=== PATIENT | female | born 1965 | race Caucasian/White ===

== ENCOUNTER 2017-09-27 08:21 | Outpatient (RCR) | payer BC, SELFPAY ==
[2017-09-27] MEDS: Normal Saline Flush 10 ML SYR IVP (07:30)
[2017-09-27 07:43] LABS: Abs Immature Grans 0.03 k/cumm (0.0-0.09); Absolute Basophil Count 0.01 k/cumm (0.0-0.2); Absolute Lymphocyte Count 0.59 k/cumm (1.2-3.4); Absolute Monocyte Count 0.51 k/cumm (0.11-0.7); Absolute Neutrophil Count 5.48 k/cumm (1.2-6.7); Basophils % 0.1; Eosinophils % 1.5; HCT 37.4 % (36.0-46.0); Immature Grans % 0.4; Lymphocytes % 8.8; Mean Corp. HGB Concentration 32.1 g/dL (32.0-36.0); Mean Corpuscular Hemoglobin 29.3 pg (27.0-33.0); Mean Corpuscular Volume 91.4 fL (80-95); Mean Platelet Volume 9.4 fL (8.0-11.0); Monocytes % 7.6; Neutrophils % 81.6; Platelet Count 184 x1000/uL (130-400); RBC 4.09 m/cumm (4.00-5.20); RBC Distribution Width 15.3 % (11.7-14.6); White Blood Cell Count 6.72 k/cumm (4.4-10.8)
[2017-09-27 07:57] LABS: ALT 23 U/L (12-78); AST 14 U/L (15-37); Albumin 3.2 g/dL (3.4-5.0); Alkaline Phosphatase 121 U/L (46-116); BUN 10 mg/dL (7-18); Bilirubin, Total 0.4 mg/dL (0.2-1.0); CREATININE 0.88 mg/dL (0.55-1.02); Calcium 8.5 mg/dL (8.5-10.1); Chloride 105 mmol/L (98-107); Glucose 105 mg/dL (70-100); Potassium 4.1 mmol/L (3.5-5.1); Sodium 141 mmol/L (136-145); Total Protein 6.8 g/dL (6.4-8.2)
[2017-10-10] MEDS: Normal Saline Flush 10 ML SYR IVP (08:25)
[2017-10-10 08:48] LABS: Abs Immature Grans 0.03 k/cumm (0.0-0.09); Absolute Basophil Count 0.02 k/cumm (0.0-0.2); Absolute Eosinophil Count 0.06 k/cumm (0.0-0.7); Absolute Lymphocyte Count 0.69 k/cumm (1.2-3.4); Absolute Monocyte Count 0.54 k/cumm (0.11-0.7); Absolute Neutrophil Count 4.04 k/cumm (1.2-6.7); Basophils % 0.4; Eosinophils % 1.1; HCT 34.8 % (36.0-46.0); HGB 11.2 g/dL (12.0-15.5); Immature Grans % 0.6; Lymphocytes % 12.8; Mean Corp. HGB Concentration 32.2 g/dL (32.0-36.0); Mean Corpuscular Hemoglobin 29.5 pg (27.0-33.0); Mean Corpuscular Volume 91.6 fL (80-95); Neutrophils % 75.1; Platelet Count 167 x1000/uL (130-400); RBC Distribution Width 16.2 % (11.7-14.6); White Blood Cell Count 5.38 k/cumm (4.4-10.8)
[2017-10-10 08:58] LABS: ALT 24 U/L (12-78); AST 15 U/L (15-37); Albumin 3.4 g/dL (3.4-5.0); Alkaline Phosphatase 125 U/L (46-116); BUN 11 mg/dL (7-18); Bilirubin, Total 0.4 mg/dL (0.2-1.0); CREATININE 0.86 mg/dL (0.55-1.02); Calcium 8.5 mg/dL (8.5-10.1); Chloride 103 mmol/L (98-107); Glucose 94 mg/dL (70-100); Potassium 3.9 mmol/L (3.5-5.1); Sodium 137 mmol/L (136-145); Total Protein 6.8 g/dL (6.4-8.2)
[2017-10-11 10:13] LABS: CEA 2.4 ng/ml
== END 2017-10-21 ==
LOC: INF 10-10 08:21
PROVIDERS: PCP Hospitalist; Visit Provider Internal Medicine Medical Oncology
DX: C20 Malignant neoplasm of rectum (principal); Z45.2 Encounter for adjustment and management of vascular access device
CPT/HCPCS: 36591; 80053; 82378; 85025

== ENCOUNTER 2017-11-08 01:15 | Outpatient (RCR) | payer BC, SELFPAY ==
[2017-10-25] MEDS: Normal Saline Flush 10 ML SYR IVP (11:00)
[2017-10-25 11:29] LABS: Abs Immature Grans 0.02 k/cumm (0.0-0.09); Absolute Basophil Count 0.02 k/cumm (0.0-0.2); Absolute Eosinophil Count 0.07 k/cumm (0.0-0.7); Absolute Lymphocyte Count 0.71 k/cumm (1.2-3.4); Absolute Monocyte Count 0.44 k/cumm (0.11-0.7); Absolute Neutrophil Count 6.23 k/cumm (1.2-6.7); Basophils % 0.3; Eosinophils % 0.9; HCT 35.3 % (36.0-46.0); HGB 11.2 g/dL (12.0-15.5); Immature Grans % 0.3; Lymphocytes % 9.5; Mean Corp. HGB Concentration 31.7 g/dL (32.0-36.0); Mean Corpuscular Hemoglobin 28.9 pg (27.0-33.0); Mean Corpuscular Volume 91.2 fL (80-95); Mean Platelet Volume 9.6 fL (8.0-11.0); Monocytes % 5.9; Neutrophils % 83.1; Platelet Count 191 x1000/uL (130-400); RBC 3.87 m/cumm (4.00-5.20); RBC Distribution Width 17.2 % (11.7-14.6); White Blood Cell Count 7.49 k/cumm (4.4-10.8)
[2017-10-25 11:31] LABS: Albumin 3.3 g/dL (3.4-5.0); Anion Gap 6.3 mmol/L (3-11); BUN 11 mg/dL (7-18); CO2 25.7 mmol/L (21.0-32.0); CREATININE 0.81 mg/dL (0.55-1.02); Calcium 8.5 mg/dL (8.5-10.1); Chloride 105 mmol/L (98-107); Glucose 119 mg/dL (70-100); Potassium 3.5 mmol/L (3.5-5.1); Sodium 137 mmol/L (136-145)
[2017-10-25 11:49] LABS: ALT 25 U/L (12-78); AST 15 U/L (15-37); Alkaline Phosphatase 129 U/L (46-116); Bilirubin, Total 0.5 mg/dL (0.2-1.0); Total Protein 6.7 g/dL (6.4-8.2)
[2017-11-08] MEDS: Normal Saline Flush 10 ML SYR IVP (07:34)
[2017-11-08 07:58] LABS: Abs Immature Grans 0.02 k/cumm (0.0-0.09); Absolute Basophil Count 0.02 k/cumm (0.0-0.2); Absolute Eosinophil Count 0.09 k/cumm (0.0-0.7); Absolute Monocyte Count 0.44 k/cumm (0.11-0.7); Absolute Neutrophil Count 3.65 k/cumm (1.2-6.7); Basophils % 0.4; Eosinophils % 1.9; HCT 34.5 % (36.0-46.0); HGB 11.2 g/dL (12.0-15.5); Immature Grans % 0.4; Lymphocytes % 12.4; Mean Corp. HGB Concentration 32.5 g/dL (32.0-36.0); Mean Corpuscular Hemoglobin 29.8 pg (27.0-33.0); Mean Corpuscular Volume 91.8 fL (80-95); Mean Platelet Volume 9.5 fL (8.0-11.0); Monocytes % 9.1; Neutrophils % 75.8; Platelet Count 182 x1000/uL (130-400); RBC 3.76 m/cumm (4.00-5.20); White Blood Cell Count 4.82 k/cumm (4.4-10.8)
[2017-11-08 08:10] LABS: ALT 29 U/L (12-78); AST 16 U/L (15-37); Albumin 3.3 g/dL (3.4-5.0); Alkaline Phosphatase 156 U/L (46-116); Anion Gap 9.4 mmol/L (3-11); BUN 13 mg/dL (7-18); Bilirubin, Total 0.5 mg/dL (0.2-1.0); CO2 27.6 mmol/L (21.0-32.0); CREATININE 0.79 mg/dL (0.55-1.02); Calcium 8.6 mg/dL (8.5-10.1); Chloride 106 mmol/L (98-107); Glucose 104 mg/dL (70-100); Potassium 3.9 mmol/L (3.5-5.1); Sodium 143 mmol/L (136-145); Total Protein 6.6 g/dL (6.4-8.2)
[2017-11-09 09:21] LABS: CEA 4.3 ng/ml
== END 2017-11-20 23:59 | disposition home or self-care (01) ==
LOC: INF 01:15
PROVIDERS: PCP Hospitalist; Visit Provider Internal Medicine Medical Oncology
DX: C20 Malignant neoplasm of rectum (principal); Z45.2 Encounter for adjustment and management of vascular access device
CPT/HCPCS: 36591; 80053; 82378; 85025

== ENCOUNTER 2017-11-21 01:32 | Outpatient (RCR) | payer BC, SELFPAY ==
[2017-11-21] MEDS: Normal Saline Flush 10 ML SYR IVP (08:20)
[2017-11-21 08:44] LABS: Abs Immature Grans 0.04 k/cumm (0.0-0.09); Absolute Basophil Count 0.02 k/cumm (0.0-0.2); Absolute Eosinophil Count 0.09 k/cumm (0.0-0.7); Absolute Lymphocyte Count 0.74 k/cumm (1.2-3.4); Absolute Monocyte Count 0.55 k/cumm (0.11-0.7); Absolute Neutrophil Count 4.35 k/cumm (1.2-6.7); Basophils % 0.3; Eosinophils % 1.6; HCT 34.7 % (36.0-46.0); HGB 10.9 g/dL (12.0-15.5); Immature Grans % 0.7; Lymphocytes % 12.8; Mean Corp. HGB Concentration 31.4 g/dL (32.0-36.0); Mean Corpuscular Hemoglobin 29.4 pg (27.0-33.0); Mean Corpuscular Volume 93.5 fL (80-95); Mean Platelet Volume 9.4 fL (8.0-11.0); Monocytes % 9.5; Neutrophils % 75.1; Platelet Count 199 x1000/uL (130-400); RBC 3.71 m/cumm (4.00-5.20); RBC Distribution Width 17.9 % (11.7-14.6); White Blood Cell Count 5.79 k/cumm (4.4-10.8)
[2017-11-21 08:57] LABS: ALT 23 U/L (12-78); AST 13 U/L (15-37); Albumin 3.3 g/dL (3.4-5.0); Alkaline Phosphatase 162 U/L (46-116); Anion Gap 9.5 mmol/L (3-11); BUN 16 mg/dL (7-18); Bilirubin, Total 0.4 mg/dL (0.2-1.0); CO2 25.5 mmol/L (21.0-32.0); CREATININE 0.75 mg/dL (0.55-1.02); Calcium 8.8 mg/dL (8.5-10.1); Chloride 104 mmol/L (98-107); Glucose 107 mg/dL (70-100); Sodium 139 mmol/L (136-145); Total Protein 6.6 g/dL (6.4-8.2)
== END 2017-12-21 23:59 | disposition home or self-care (01) ==
LOC: INF 01:32
PROVIDERS: PCP Hospitalist; Visit Provider Internal Medicine Medical Oncology
DX: C20 Malignant neoplasm of rectum (principal); Z45.2 Encounter for adjustment and management of vascular access device
CPT/HCPCS: 36591; 80053; 85025

== ENCOUNTER 2018-01-13 00:47 | Outpatient (RCR) | payer BC, SELFPAY ==
[2017-12-30 08:56] LABS: Abs Immature Grans 0.01 k/cumm (0.0-0.09); Absolute Basophil Count 0.01 k/cumm (0.0-0.2); Absolute Eosinophil Count 0.14 k/cumm (0.0-0.7); Absolute Lymphocyte Count 0.76 k/cumm (1.2-3.4); Absolute Monocyte Count 0.51 k/cumm (0.11-0.7); Absolute Neutrophil Count 5.16 k/cumm (1.2-6.7); Basophils % 0.2; Eosinophils % 2.1; HCT 37.7 % (36.0-46.0); Immature Grans % 0.2; Lymphocytes % 11.5; Mean Corp. HGB Concentration 31.8 g/dL (32.0-36.0); Mean Corpuscular Hemoglobin 29.8 pg (27.0-33.0); Mean Corpuscular Volume 93.5 fL (80-95); Mean Platelet Volume 9.4 fL (8.0-11.0); Monocytes % 7.7; Neutrophils % 78.3; Platelet Count 208 x1000/uL (130-400); RBC 4.03 m/cumm (4.00-5.20); RBC Distribution Width 14.3 % (11.7-14.6); White Blood Cell Count 6.59 k/cumm (4.4-10.8)
[2017-12-30 09:09] LABS: ALT 23 U/L (12-78); AST 15 U/L (15-37); Albumin 3.2 g/dL (3.4-5.0); Alkaline Phosphatase 123 U/L (46-116); Anion Gap 8.3 mmol/L (3-11); BUN 16 mg/dL (7-18); Bilirubin, Total 0.4 mg/dL (0.2-1.0); CO2 27.7 mmol/L (21.0-32.0); CREATININE 0.66 mg/dL (0.55-1.02); Calcium 8.9 mg/dL (8.5-10.1); Chloride 102 mmol/L (98-107); Glucose 109 mg/dL (70-100); Sodium 138 mmol/L (136-145); Total Protein 6.9 g/dL (6.4-8.2)
[2017-12-30] MEDS: Normal Saline Flush 10 ML SYR IVP (15:03)
[2018-01-02 09:51] LABS: CEA 4.9 ng/ml
[2018-01-13 07:21] LABS: Abs Immature Grans 0.03 k/cumm (0.0-0.09); Absolute Basophil Count 0.02 k/cumm (0.0-0.2); Absolute Eosinophil Count 0.12 k/cumm (0.0-0.7); Absolute Lymphocyte Count 0.67 k/cumm (1.2-3.4); Absolute Monocyte Count 0.61 k/cumm (0.11-0.7); Absolute Neutrophil Count 4.93 k/cumm (1.2-6.7); Basophils % 0.3; Eosinophils % 1.9; HCT 38.3 % (36.0-46.0); HGB 12.1 g/dL (12.0-15.5); Immature Grans % 0.5; Lymphocytes % 10.5; Mean Corp. HGB Concentration 31.6 g/dL (32.0-36.0); Mean Corpuscular Hemoglobin 29.3 pg (27.0-33.0); Mean Corpuscular Volume 92.7 fL (80-95); Monocytes % 9.6; Neutrophils % 77.2; Platelet Count 197 x1000/uL (130-400); RBC 4.13 m/cumm (4.00-5.20); RBC Distribution Width 14.6 % (11.7-14.6); White Blood Cell Count 6.38 k/cumm (4.4-10.8)
[2018-01-13] MEDS: Normal Saline Flush 10 ML SYR IVP (07:22)
[2018-01-13 07:33] LABS: ALT 25 U/L (12-78); AST 16 U/L (15-37); Albumin 3.2 g/dL (3.4-5.0); Alkaline Phosphatase 137 U/L (46-116); Anion Gap 8.7 mmol/L (3-11); BUN 12 mg/dL (7-18); Bilirubin, Total 0.3 mg/dL (0.2-1.0); CO2 29.3 mmol/L (21.0-32.0); CREATININE 0.72 mg/dL (0.55-1.02); Chloride 103 mmol/L (98-107); Glucose 111 mg/dL (70-100); Potassium 4.1 mmol/L (3.5-5.1); Sodium 141 mmol/L (136-145); Total Protein 6.9 g/dL (6.4-8.2)
[2018-01-16 10:34] LABS: CEA 5.2 ng/ml
== END 2018-01-20 23:59 | disposition home or self-care (01) ==
LOC: INF 00:47
PROVIDERS: PCP Hospitalist; Visit Provider Internal Medicine Medical Oncology
DX: C20 Malignant neoplasm of rectum (principal); Z45.2 Encounter for adjustment and management of vascular access device
CPT/HCPCS: 36591; 80053; 82378; 85025

== ENCOUNTER 2018-02-17 07:00 | Outpatient (RCR) | payer BC, SELFPAY ==
[2018-01-27] MEDS: Normal Saline Flush 10 ML SYR IVP (07:50)
[2018-01-27 08:04] LABS: Abs Immature Grans 0.04 k/cumm (0.0-0.09); Absolute Basophil Count 0.02 k/cumm (0.0-0.2); Absolute Eosinophil Count 0.07 k/cumm (0.0-0.7); Absolute Lymphocyte Count 0.55 k/cumm (1.2-3.4); Absolute Monocyte Count 0.61 k/cumm (0.11-0.7); Absolute Neutrophil Count 5.15 k/cumm (1.2-6.7); Basophils % 0.3; Eosinophils % 1.1; HCT 37.9 % (36.0-46.0); HGB 12.1 g/dL (12.0-15.5); Immature Grans % 0.6; Lymphocytes % 8.5; Mean Corp. HGB Concentration 31.9 g/dL (32.0-36.0); Mean Corpuscular Hemoglobin 29.4 pg (27.0-33.0); Mean Corpuscular Volume 92.2 fL (80-95); Monocytes % 9.5; Platelet Count 158 x1000/uL (130-400); RBC 4.11 m/cumm (4.00-5.20); RBC Distribution Width 14.8 % (11.7-14.6); White Blood Cell Count 6.44 k/cumm (4.4-10.8)
[2018-01-27 08:12] LABS: ALT 28 U/L (12-78); AST 18 U/L (15-37); Albumin 3.2 g/dL (3.4-5.0); Alkaline Phosphatase 135 U/L (46-116); Anion Gap 10.9 mmol/L (3-11); BUN 11 mg/dL (7-18); Bilirubin, Total 0.3 mg/dL (0.2-1.0); CO2 27.1 mmol/L (21.0-32.0); CREATININE 0.86 mg/dL (0.55-1.02); Calcium 8.8 mg/dL (8.5-10.1); Chloride 105 mmol/L (98-107); Glucose 164 mg/dL (70-100); Potassium 4.3 mmol/L (3.5-5.1); Sodium 143 mmol/L (136-145); Total Protein 6.7 g/dL (6.4-8.2)
[2018-02-17] MEDS: Normal Saline Flush 10 ML SYR IVP (07:05)
[2018-02-17 07:31] LABS: Abs Immature Grans 0.02 k/cumm (0.0-0.09); Absolute Basophil Count 0.02 k/cumm (0.0-0.2); Absolute Eosinophil Count 0.09 k/cumm (0.0-0.7); Absolute Lymphocyte Count 0.53 k/cumm (1.2-3.4); Absolute Monocyte Count 0.69 k/cumm (0.11-0.7); Absolute Neutrophil Count 5.37 k/cumm (1.2-6.7); Basophils % 0.3; Eosinophils % 1.3; HCT 38.4 % (36.0-46.0); HGB 12.1 g/dL (12.0-15.5); Immature Grans % 0.3; Lymphocytes % 7.9; Mean Corp. HGB Concentration 31.5 g/dL (32.0-36.0); Mean Corpuscular Hemoglobin 28.6 pg (27.0-33.0); Mean Corpuscular Volume 90.8 fL (80-95); Mean Platelet Volume 9.9 fL (8.0-11.0); Monocytes % 10.3; Neutrophils % 79.9; Platelet Count 227 x1000/uL (130-400); RBC 4.23 m/cumm (4.00-5.20); RBC Distribution Width 15.9 % (11.7-14.6); White Blood Cell Count 6.72 k/cumm (4.4-10.8)
[2018-02-17 07:48] LABS: ALT 30 U/L (12-78); AST 21 U/L (15-37); Albumin 3.2 g/dL (3.4-5.0); Alkaline Phosphatase 112 U/L (46-116); Anion Gap 5.6 mmol/L (3-11); BUN 9 mg/dL (7-18); Bilirubin, Total 0.5 mg/dL (0.2-1.0); CO2 28.4 mmol/L (21.0-32.0); CREATININE 0.63 mg/dL (0.55-1.02); Calcium 8.8 mg/dL (8.5-10.1); Chloride 105 mmol/L (98-107); Glucose 106 mg/dL (70-100); Potassium 4.1 mmol/L (3.5-5.1); Sodium 139 mmol/L (136-145); Total Protein 6.8 g/dL (6.4-8.2)
[2018-02-20 08:44] LABS: CEA 7.1 ng/ml
== END 2018-02-20 23:59 | disposition home or self-care (01) ==
LOC: INF 07:00
PROVIDERS: Internal Medicine Hematology & Oncology; PCP Hospitalist; Visit Provider Internal Medicine Medical Oncology
DX: C20 Malignant neoplasm of rectum (principal); Z45.2 Encounter for adjustment and management of vascular access device
CPT/HCPCS: 36591; 80053; 82378; 85025

== ENCOUNTER 2018-03-17 00:52 | Outpatient (RCR) | payer BC, SELFPAY ==
[2018-03-03 08:33] LABS: Abs Immature Grans 0.01 k/cumm (0.0-0.09); Absolute Basophil Count 0.01 k/cumm (0.0-0.2); Absolute Lymphocyte Count 0.57 k/cumm (1.2-3.4); Absolute Monocyte Count 0.49 k/cumm (0.11-0.7); Absolute Neutrophil Count 4.57 k/cumm (1.2-6.7); Basophils % 0.2; Eosinophils % 1.7; HCT 36.2 % (36.0-46.0); HGB 11.6 g/dL (12.0-15.5); Immature Grans % 0.2; Lymphocytes % 9.9; Mean Corpuscular Hemoglobin 28.9 pg (27.0-33.0); Mean Platelet Volume 9.6 fL (8.0-11.0); Monocytes % 8.5; Neutrophils % 79.5; Platelet Count 146 x1000/uL (130-400); RBC 4.02 m/cumm (4.00-5.20); RBC Distribution Width 16.5 % (11.7-14.6); White Blood Cell Count 5.75 k/cumm (4.4-10.8)
[2018-03-03] MEDS: Normal Saline Flush 10 ML SYR IVP (08:33)
[2018-03-03 08:45] LABS: ALT 22 U/L (12-78); AST 16 U/L (15-37); Albumin 3.2 g/dL (3.4-5.0); Alkaline Phosphatase 131 U/L (46-116); Anion Gap 8.9 mmol/L (3-11); BUN 9 mg/dL (7-18); Bilirubin, Total 0.4 mg/dL (0.2-1.0); CO2 27.1 mmol/L (21.0-32.0); CREATININE 0.75 mg/dL (0.55-1.02); Chloride 106 mmol/L (98-107); Glucose 101 mg/dL (70-100); Potassium 3.9 mmol/L (3.5-5.1); Sodium 142 mmol/L (136-145); Total Protein 6.8 g/dL (6.4-8.2)
[2018-03-06 08:46] LABS: CEA 7.8 ng/ml
[2018-03-17 08:07] LABS: Abs Immature Grans 0.02 k/cumm (0.0-0.09); Absolute Basophil Count 0.02 k/cumm (0.0-0.2); Absolute Eosinophil Count 0.02 k/cumm (0.0-0.7); Absolute Monocyte Count 0.74 k/cumm (0.11-0.7); Absolute Neutrophil Count 4.75 k/cumm (1.2-6.7); Basophils % 0.3; Eosinophils % 0.3; HCT 33.4 % (36.0-46.0); HGB 10.7 g/dL (12.0-15.5); Immature Grans % 0.3; Lymphocytes % 8.3; Mean Corpuscular Hemoglobin 28.3 pg (27.0-33.0); Mean Corpuscular Volume 88.4 fL (80-95); Mean Platelet Volume 9.4 fL (8.0-11.0); Monocytes % 12.2; Neutrophils % 78.6; Platelet Count 120 x1000/uL (130-400); RBC 3.78 m/cumm (4.00-5.20); RBC Distribution Width 16.8 % (11.7-14.6); White Blood Cell Count 6.05 k/cumm (4.4-10.8)
[2018-03-17] MEDS: Normal Saline Flush 10 ML SYR IVP (08:13)
[2018-03-17 08:19] LABS: ALT 30 U/L (12-78); AST 19 U/L (15-37); Albumin 2.9 g/dL (3.4-5.0); Alkaline Phosphatase 115 U/L (46-116); Anion Gap 9.1 mmol/L (3-11); BUN 9 mg/dL (7-18); Bilirubin, Total 0.5 mg/dL (0.2-1.0); CO2 26.9 mmol/L (21.0-32.0); CREATININE 0.66 mg/dL (0.55-1.02); Chloride 103 mmol/L (98-107); Glucose 118 mg/dL (70-100); Potassium 3.6 mmol/L (3.5-5.1); Sodium 139 mmol/L (136-145); Total Protein 6.7 g/dL (6.4-8.2)
[2018-03-17 08:24] LABS: Calcium 8.7 mg/dL (8.5-10.1)
== END 2018-03-23 23:59 | disposition home or self-care (01) ==
LOC: INF 00:52
PROVIDERS: PCP Hospitalist; Visit Provider Internal Medicine Hematology & Oncology
DX: C20 Malignant neoplasm of rectum (principal); Z45.2 Encounter for adjustment and management of vascular access device
CPT/HCPCS: 36591; 80053; 82378; 85025

== ENCOUNTER 2018-06-23 01:54 | Outpatient (RCR) | payer BC, SELFPAY | END 2018-07-21 23:59 | disposition home or self-care (01) | LOC: INF 01:54 | PROVIDERS: PCP Hospitalist; Visit Provider Internal Medicine Hematology & Oncology | DX: R69 Illness, unspecified (principal) ==

== ENCOUNTER 2018-09-14 01:46 | Outpatient (RCR) | payer BC, SELFPAY ==
[2018-09-14] MEDS: Normal Saline Flush 10 ML SYR IVP (09:18)
[2018-09-14] MEDS: Heparin 500 UNITS/5 ML SYRINGE IV (09:18)
[2018-09-14 09:38] LABS: Absolute Basophil Count 0.02 k/cumm (0.0-0.2); Absolute Eosinophil Count 0.04 k/cumm (0.0-0.7); Absolute Lymphocyte Count 0.83 k/cumm (1.2-3.4); Absolute Monocyte Count 0.38 k/cumm (0.11-0.7); Absolute Neutrophil Count 3.15 k/cumm (1.2-6.7); Basophils % 0.5; Eosinophils % 0.9; HCT 37.8 % (36.0-46.0); HGB 11.9 g/dL (12.0-15.5); Lymphocytes % 18.8; Mean Corp. HGB Concentration 31.5 g/dL (32.0-36.0); Mean Corpuscular Hemoglobin 24.2 pg (27.0-33.0); Mean Platelet Volume 10.3 fL (8.0-11.0); Monocytes % 8.6; Neutrophils % 71.2; Platelet Count 226 x1000/uL (130-400); RBC 4.91 m/cumm (4.00-5.20); RBC Distribution Width 20.4 % (11.7-14.6); White Blood Cell Count 4.42 k/cumm (4.4-10.8)
[2018-09-14 09:50] LABS: ALT 25 U/L (12-78); AST 15 U/L (15-37); Albumin 3.6 g/dL (3.4-5.0); Alkaline Phosphatase 85 U/L (46-116); Anion Gap 7.9 mmol/L (3-11); BUN 16 mg/dL (7-18); Bilirubin, Total 0.6 mg/dL (0.2-1.0); CO2 28.1 mmol/L (21.0-32.0); CREATININE 0.63 mg/dL (0.55-1.02); Calcium 9.4 mg/dL (8.5-10.1); Chloride 103 mmol/L (98-107); Glucose 104 mg/dL (70-100); Potassium 4.1 mmol/L (3.5-5.1); Sodium 139 mmol/L (136-145); Total Protein 7.7 g/dL (6.4-8.2)
[2018-09-14 10:41] LABS: Anisocytosis 2+; Diff Comment Diff Reviewed
== END 2018-09-20 23:59 | disposition home or self-care (01) ==
LOC: INF 01:46
PROVIDERS: PCP Hospitalist; Visit Provider Internal Medicine Hematology & Oncology
DX: C20 Malignant neoplasm of rectum (principal); Z45.2 Encounter for adjustment and management of vascular access device
CPT/HCPCS: 36591; 80053; 82378; 85025

== ENCOUNTER 2018-10-06 02:47 | Outpatient (RCR) | payer BC, SELFPAY ==
[2018-10-06] MEDS: Heparin 500 UNITS/5 ML SYRINGE IV (13:35)
[2018-10-06] MEDS: Normal Saline Flush 10 ML SYR IVP (13:35)
[2018-10-06 13:57] LABS: Abs Immature Grans 0.01 k/cumm (0.0-0.09); Absolute Basophil Count 0.01 k/cumm (0.0-0.2); Absolute Eosinophil Count 0.02 k/cumm (0.0-0.7); Absolute Lymphocyte Count 1.04 k/cumm (1.2-3.4); Absolute Monocyte Count 0.42 k/cumm (0.11-0.7); Absolute Neutrophil Count 2.81 k/cumm (1.2-6.7); Basophils % 0.2; Eosinophils % 0.5; HCT 37.9 % (36.0-46.0); Immature Grans % 0.2; Lymphocytes % 24.1; Mean Corp. HGB Concentration 31.7 g/dL (32.0-36.0); Mean Corpuscular Hemoglobin 25.1 pg (27.0-33.0); Mean Corpuscular Volume 79.1 fL (80-95); Mean Platelet Volume 10.1 fL (8.0-11.0); Monocytes % 9.7; Neutrophils % 65.3; Platelet Count 234 x1000/uL (130-400); RBC 4.79 m/cumm (4.00-5.20); RBC Distribution Width 20.6 % (11.7-14.6); White Blood Cell Count 4.31 k/cumm (4.4-10.8)
[2018-10-06 14:16] LABS: ALT 19 U/L (12-78); AST 16 U/L (15-37); Albumin 3.7 g/dL (3.4-5.0); Alkaline Phosphatase 89 U/L (46-116); Anion Gap 8.3 mmol/L (3-11); BUN 17 mg/dL (7-18); Bilirubin, Total 0.5 mg/dL (0.2-1.0); CO2 27.7 mmol/L (21.0-32.0); CREATININE 0.73 mg/dL (0.55-1.02); Calcium 9.1 mg/dL (8.5-10.1); Chloride 103 mmol/L (98-107); Glucose 83 mg/dL (70-100); Potassium 3.9 mmol/L (3.5-5.1); Sodium 139 mmol/L (136-145); Total Protein 7.9 g/dL (6.4-8.2)
[2018-10-09 09:43] LABS: CEA 48.4 ng/ml
== END 2018-10-21 23:59 | disposition home or self-care (01) ==
LOC: INF 02:47
PROVIDERS: PCP Hospitalist; Visit Provider Internal Medicine Hematology & Oncology
DX: C20 Malignant neoplasm of rectum (principal); Z45.2 Encounter for adjustment and management of vascular access device
CPT/HCPCS: 36591; 80053; 82378; 85025

== ENCOUNTER 2018-11-10 03:05 | Outpatient (RCR) | payer BC, SELFPAY ==
[2018-10-27] MEDS: Normal Saline Flush 10 ML SYR IVP (10:33)
[2018-10-27 10:39] LABS: Abs Immature Grans 0.01 k/cumm (0.0-0.09); Absolute Basophil Count 0.01 k/cumm (0.0-0.2); Absolute Eosinophil Count 0.03 k/cumm (0.0-0.7); Absolute Lymphocyte Count 0.79 k/cumm (1.2-3.4); Absolute Monocyte Count 0.48 k/cumm (0.11-0.7); Absolute Neutrophil Count 4.25 k/cumm (1.2-6.7); Basophils % 0.2; Eosinophils % 0.5; HCT 38.6 % (36.0-46.0); HGB 12.3 g/dL (12.0-15.5); Immature Grans % 0.2; Lymphocytes % 14.2; Mean Corp. HGB Concentration 31.9 g/dL (32.0-36.0); Mean Corpuscular Volume 81.6 fL (80-95); Mean Platelet Volume 9.9 fL (8.0-11.0); Monocytes % 8.6; Neutrophils % 76.3; Platelet Count 235 x1000/uL (130-400); RBC 4.73 m/cumm (4.00-5.20); RBC Distribution Width 19.6 % (11.7-14.6); White Blood Cell Count 5.57 k/cumm (4.4-10.8)
[2018-10-27 11:46] LABS: ALT 25 U/L (14-59); AST 17 U/L (15-37); Albumin 3.6 g/dL (3.4-5.0); Alkaline Phosphatase 81 U/L (46-116); Anion Gap 7.9 mmol/L (3-11); BUN 16 mg/dL (7-18); Bilirubin, Total 0.5 mg/dL (0.2-1.0); CO2 29.1 mmol/L (21.0-32.0); CREATININE 0.82 mg/dL (0.55-1.02); Calcium 9.1 mg/dL (8.5-10.1); Chloride 104 mmol/L (98-107); Glucose 93 mg/dL (70-100); Potassium 4.4 mmol/L (3.5-5.1); Sodium 141 mmol/L (136-145); Total Protein 7.6 g/dL (6.4-8.2)
[2018-10-30 10:48] LABS: CEA 67.8 ng/ml
== END 2018-11-20 23:59 | disposition home or self-care (01) ==
LOC: INF 03:05
PROVIDERS: PCP Hospitalist; Visit Provider Internal Medicine Hematology & Oncology
DX: C20 Malignant neoplasm of rectum (principal); Z45.2 Encounter for adjustment and management of vascular access device
CPT/HCPCS: 36591; 80053; 82378; 85025

== ENCOUNTER 2018-12-08 02:50 | Outpatient (RCR) | payer BC, SELFPAY ==
[2018-11-24] MEDS: Normal Saline Flush 10 ML SYR IVP (09:54)
[2018-11-24 10:00] LABS: Absolute Basophil Count 0.01 k/cumm (0.0-0.2); Absolute Eosinophil Count 0.03 k/cumm (0.0-0.7); Absolute Lymphocyte Count 0.79 k/cumm (1.2-3.4); Absolute Monocyte Count 0.48 k/cumm (0.11-0.7); Absolute Neutrophil Count 4.17 k/cumm (1.2-6.7); Basophils % 0.2; Eosinophils % 0.5; HCT 39.9 % (36.0-46.0); Lymphocytes % 14.4; Mean Corp. HGB Concentration 32.6 g/dL (32.0-36.0); Mean Corpuscular Hemoglobin 27.1 pg (27.0-33.0); Mean Corpuscular Volume 83.1 fL (80-95); Mean Platelet Volume 10.3 fL (8.0-11.0); Monocytes % 8.8; Neutrophils % 76.1; Platelet Count 257 x1000/uL (130-400); RBC Distribution Width 18.1 % (11.7-14.6); White Blood Cell Count 5.48 k/cumm (4.4-10.8)
[2018-11-24 10:42] LABS: ALT 23 U/L (14-59); AST 20 U/L (15-37); Albumin 3.7 g/dL (3.4-5.0); Alkaline Phosphatase 88 U/L (46-116); Anion Gap 10.3 mmol/L (3-11); BUN 15 mg/dL (7-18); Bilirubin, Total 0.8 mg/dL (0.2-1.0); CO2 25.7 mmol/L (21.0-32.0); CREATININE 0.67 mg/dL (0.55-1.02); Chloride 104 mmol/L (98-107); Glucose 97 mg/dL (70-100); Potassium 4.1 mmol/L (3.5-5.1); Sodium 140 mmol/L (136-145); Total Protein 7.7 g/dL (6.4-8.2)
[2018-11-27 08:53] LABS: CEA 47.8 ng/ml
[2018-12-08] MEDS: Normal Saline Flush 10 ML SYR IVP (09:39)
[2018-12-08 09:57] LABS: Abs Immature Grans 0.02 k/cumm (0.0-0.09); Absolute Basophil Count 0.02 k/cumm (0.0-0.2); Absolute Eosinophil Count 0.04 k/cumm (0.0-0.7); Absolute Lymphocyte Count 1.23 k/cumm (1.2-3.4); Absolute Neutrophil Count 8.32 k/cumm (1.2-6.7); Basophils % 0.2; Eosinophils % 0.4; HCT 42.2 % (36.0-46.0); HGB 13.7 g/dL (12.0-15.5); Immature Grans % 0.2; Lymphocytes % 12.1; Mean Corp. HGB Concentration 32.5 g/dL (32.0-36.0); Mean Corpuscular Hemoglobin 27.6 pg (27.0-33.0); Mean Corpuscular Volume 84.9 fL (80-95); Mean Platelet Volume 9.8 fL (8.0-11.0); Monocytes % 4.9; Neutrophils % 82.2; Platelet Count 190 x1000/uL (130-400); RBC 4.97 m/cumm (4.00-5.20); RBC Distribution Width 18.4 % (11.7-14.6); White Blood Cell Count 10.13 k/cumm (4.4-10.8)
[2018-12-08 10:12] LABS: ALT 21 U/L (14-59); AST 17 U/L (15-37); Albumin 3.9 g/dL (3.4-5.0); Alkaline Phosphatase 133 U/L (46-116); Anion Gap 11.4 mmol/L (3-11); BUN 15 mg/dL (7-18); Bilirubin, Total 0.6 mg/dL (0.2-1.0); CO2 26.6 mmol/L (21.0-32.0); CREATININE 0.76 mg/dL (0.55-1.02); Calcium 9.1 mg/dL (8.5-10.1); Chloride 103 mmol/L (98-107); Glucose 98 mg/dL (70-100); Potassium 4.1 mmol/L (3.5-5.1); Sodium 141 mmol/L (136-145); Total Protein 7.8 g/dL (6.4-8.2)
[2018-12-11 10:55] LABS: CEA 29.3 ng/ml
== END 2018-12-21 23:59 | disposition home or self-care (01) ==
LOC: INF 02:50
PROVIDERS: PCP Hospitalist; Visit Provider Internal Medicine Hematology & Oncology
DX: C20 Malignant neoplasm of rectum (principal); Z45.2 Encounter for adjustment and management of vascular access device
CPT/HCPCS: 36591; 80053; 82378; 85025

== ENCOUNTER 2019-01-19 02:03 | Outpatient (RCR) | payer BC, SELFPAY ==
[2018-12-22 09:30] LABS: Abs Immature Grans 0.05 k/cumm (0.0-0.09); Absolute Basophil Count 0.02 k/cumm (0.0-0.2); Absolute Eosinophil Count 0.03 k/cumm (0.0-0.7); Absolute Lymphocyte Count 1.12 k/cumm (1.2-3.4); Absolute Monocyte Count 0.73 k/cumm (0.11-0.7); Absolute Neutrophil Count 7.06 k/cumm (1.2-6.7); Basophils % 0.2; Eosinophils % 0.3; HCT 39.2 % (36.0-46.0); HGB 12.9 g/dL (12.0-15.5); Immature Grans % 0.6; Lymphocytes % 12.4; Mean Corp. HGB Concentration 32.9 g/dL (32.0-36.0); Mean Corpuscular Hemoglobin 28.6 pg (27.0-33.0); Mean Corpuscular Volume 86.9 fL (80-95); Mean Platelet Volume 9.5 fL (8.0-11.0); Monocytes % 8.1; Neutrophils % 78.4; Platelet Count 184 x1000/uL (130-400); RBC 4.51 m/cumm (4.00-5.20); RBC Distribution Width 17.8 % (11.7-14.6); White Blood Cell Count 9.01 k/cumm (4.4-10.8)
[2018-12-22 09:41] LABS: ALT 32 U/L (14-59); AST 19 U/L (15-37); Albumin 2.1 g/dL (3.4-5.0); Alkaline Phosphatase 134 U/L (46-116); Anion Gap 7.3 mmol/L (3-11); BUN 13 mg/dL (7-18); Bilirubin, Total 0.5 mg/dL (0.2-1.0); CO2 27.7 mmol/L (21.0-32.0); CREATININE 0.72 mg/dL (0.55-1.02); Calcium 8.9 mg/dL (8.5-10.1); Chloride 105 mmol/L (98-107); Glucose 92 mg/dL (70-100); Sodium 140 mmol/L (136-145); Total Protein 7.1 g/dL (6.4-8.2)
[2018-12-22] MEDS: Normal Saline Flush 10 ML SYR IVP (09:41)
[2018-12-25 11:21] LABS: CEA 21.9 ng/ml
[2019-01-05 10:15] LABS: Abs Immature Grans 0.04 k/cumm (0.0-0.09); Absolute Basophil Count 0.01 k/cumm (0.0-0.2); Absolute Eosinophil Count 0.02 k/cumm (0.0-0.7); Absolute Lymphocyte Count 1.01 k/cumm (1.2-3.4); Absolute Monocyte Count 0.81 k/cumm (0.11-0.7); Basophils % 0.1; Eosinophils % 0.2; HCT 39.9 % (36.0-46.0); HGB 12.8 g/dL (12.0-15.5); Immature Grans % 0.5; Lymphocytes % 11.6; Mean Corp. HGB Concentration 32.1 g/dL (32.0-36.0); Mean Corpuscular Hemoglobin 28.3 pg (27.0-33.0); Mean Corpuscular Volume 88.1 fL (80-95); Mean Platelet Volume 10.2 fL (8.0-11.0); Monocytes % 9.3; Neutrophils % 78.3; Platelet Count 169 x1000/uL (130-400); RBC 4.53 m/cumm (4.00-5.20); RBC Distribution Width 18.1 % (11.7-14.6); White Blood Cell Count 8.69 k/cumm (4.4-10.8)
[2019-01-05] MEDS: Normal Saline Flush 10 ML SYR IVP (10:26)
[2019-01-05 10:29] LABS: ALT 32 U/L (14-59); AST 20 U/L (15-37); Albumin 3.8 g/dL (3.4-5.0); Alkaline Phosphatase 155 U/L (46-116); Anion Gap 8.9 mmol/L (3-11); BUN 12 mg/dL (7-18); Bilirubin, Total 0.6 mg/dL (0.2-1.0); CO2 27.1 mmol/L (21.0-32.0); CREATININE 0.66 mg/dL (0.55-1.02); Calcium 9.1 mg/dL (8.5-10.1); Chloride 104 mmol/L (98-107); Glucose 96 mg/dL (70-100); Potassium 4.3 mmol/L (3.5-5.1); Sodium 140 mmol/L (136-145); Total Protein 7.3 g/dL (6.4-8.2)
[2019-01-09 16:08] LABS: CEA 19.3 ng/mL (See Note)
[2019-01-19] MEDS: Normal Saline Flush 10 ML SYR IVP (09:25)
[2019-01-19 09:42] LABS: Abs Immature Grans 0.08 k/cumm (0.0-0.09); Absolute Basophil Count 0.03 k/cumm (0.0-0.2); Absolute Eosinophil Count 0.04 k/cumm (0.0-0.7); Absolute Lymphocyte Count 0.87 k/cumm (1.2-3.4); Absolute Monocyte Count 0.77 k/cumm (0.11-0.7); Absolute Neutrophil Count 5.41 k/cumm (1.2-6.7); Basophils % 0.4; Eosinophils % 0.6; HCT 39.6 % (36.0-46.0); HGB 12.7 g/dL (12.0-15.5); Immature Grans % 1.1; Lymphocytes % 12.1; Mean Corp. HGB Concentration 32.1 g/dL (32.0-36.0); Mean Corpuscular Hemoglobin 28.5 pg (27.0-33.0); Mean Platelet Volume 9.6 fL (8.0-11.0); Monocytes % 10.7; Neutrophils % 75.1; Platelet Count 140 x1000/uL (130-400); RBC 4.45 m/cumm (4.00-5.20); RBC Distribution Width 19.2 % (11.7-14.6)
[2019-01-19 10:01] LABS: ALT 40 U/L (14-59); AST 22 U/L (15-37); Albumin 3.3 g/dL (3.4-5.0); Alkaline Phosphatase 140 U/L (46-116); Anion Gap 8.8 mmol/L (3-11); BUN 10 mg/dL (7-18); Bilirubin, Total 0.7 mg/dL (0.2-1.0); CO2 28.2 mmol/L (21.0-32.0); CREATININE 0.79 mg/dL (0.55-1.02); Calcium 8.7 mg/dL (8.5-10.1); Chloride 107 mmol/L (98-107); Glucose 97 mg/dL (74-106); Potassium 3.8 mmol/L (3.5-5.1); Sodium 144 mmol/L (136-145); Total Protein 6.6 g/dL (6.4-8.2)
[2019-01-22 10:54] LABS: CEA 15.9 ng/mL (See Note)
== END 2019-01-20 23:59 | disposition home or self-care (01) ==
LOC: INF 02:03
PROVIDERS: PCP Hospitalist; Visit Provider Internal Medicine Hematology & Oncology
DX: C20 Malignant neoplasm of rectum (principal); Z45.2 Encounter for adjustment and management of vascular access device
CPT/HCPCS: 36591; 80053; 82378; 85025

== ENCOUNTER 2019-02-02 01:19 | Outpatient (RCR) | payer BC, SELFPAY ==
[2019-02-02] MEDS: Normal Saline Flush 10 ML SYR IVP (10:24)
[2019-02-02 10:26] LABS: Abs Immature Grans 0.05 k/cumm (0.0-0.09); Absolute Basophil Count 0.02 k/cumm (0.0-0.2); Absolute Eosinophil Count 0.01 k/cumm (0.0-0.7); Absolute Lymphocyte Count 0.98 k/cumm (1.2-3.4); Absolute Monocyte Count 0.95 k/cumm (0.11-0.7); Absolute Neutrophil Count 8.48 k/cumm (1.2-6.7); Basophils % 0.2; Eosinophils % 0.1; HCT 41.1 % (36.0-46.0); HGB 13.2 g/dL (12.0-15.5); Immature Grans % 0.5; Lymphocytes % 9.3; Mean Corp. HGB Concentration 32.1 g/dL (32.0-36.0); Mean Corpuscular Hemoglobin 29.2 pg (27.0-33.0); Mean Corpuscular Volume 90.9 fL (80-95); Monocytes % 9.1; Neutrophils % 80.8; Platelet Count 133 x1000/uL (130-400); RBC 4.52 m/cumm (4.00-5.20); RBC Distribution Width 19.4 % (11.7-14.6); White Blood Cell Count 10.49 k/cumm (4.4-10.8)
[2019-02-02 10:36] LABS: ALT 32 U/L (14-59); AST 21 U/L (15-37); Albumin 3.8 g/dL (3.4-5.0); Alkaline Phosphatase 161 U/L (46-116); Anion Gap 9.7 mmol/L (3-11); BUN 12 mg/dL (7-18); Bilirubin, Total 0.8 mg/dL (0.2-1.0); CO2 26.3 mmol/L (21.0-32.0); CREATININE 0.74 mg/dL (0.55-1.02); Chloride 105 mmol/L (98-107); Glucose 93 mg/dL (74-106); Potassium 4.1 mmol/L (3.5-5.1); Sodium 141 mmol/L (136-145); Total Protein 7.3 g/dL (6.4-8.2)
[2019-02-05 10:27] LABS: CEA 15.7 ng/mL (See Note)
== END 2019-02-20 23:59 | disposition home or self-care (01) ==
LOC: INF 01:19
PROVIDERS: PCP Hospitalist; Visit Provider Internal Medicine Hematology & Oncology
DX: C20 Malignant neoplasm of rectum (principal); Z45.2 Encounter for adjustment and management of vascular access device
CPT/HCPCS: 36591; 80053; 82378; 85025

== ENCOUNTER 2019-03-23 02:51 | Outpatient (RCR) | payer BC, SELFPAY ==
[2019-02-23] MEDS: Normal Saline Flush 10 ML SYR IVP (10:16)
[2019-02-23 10:20] LABS: Abs Immature Grans 0.01 k/cumm (0.0-0.09); Absolute Basophil Count 0.02 k/cumm (0.0-0.2); Absolute Eosinophil Count 0.04 k/cumm (0.0-0.7); Absolute Lymphocyte Count 0.82 k/cumm (1.2-3.4); Absolute Monocyte Count 0.75 k/cumm (0.11-0.7); Absolute Neutrophil Count 7.32 k/cumm (1.2-6.7); Basophils % 0.2; Eosinophils % 0.4; HCT 42.1 % (36.0-46.0); HGB 13.8 g/dL (12.0-15.5); Immature Grans % 0.1 %; Lymphocytes % 9.2; Mean Corp. HGB Concentration 32.8 g/dL (32.0-36.0); Mean Corpuscular Hemoglobin 30.8 pg (27.0-33.0); Mean Platelet Volume 10.1 fL (8.0-11.0); Monocytes % 8.4; Neutrophils % 81.7; Platelet Count 195 x1000/uL (130-400); RBC 4.48 m/cumm (4.00-5.20); RBC Distribution Width 19.1 % (11.7-14.6); White Blood Cell Count 8.96 k/cumm (4.4-10.8)
[2019-02-23 10:32] LABS: ALT 45 U/L (14-59); AST 33 U/L (15-37); Albumin 3.7 g/dL (3.4-5.0); Alkaline Phosphatase 128 U/L (46-116); Anion Gap 8.8 mmol/L (3-11); BUN 16 mg/dL (7-18); Bilirubin, Total 0.9 mg/dL (0.2-1.0); CO2 28.2 mmol/L (21.0-32.0); CREATININE 0.65 mg/dL (0.55-1.02); Calcium 9.2 mg/dL (8.5-10.1); Chloride 102 mmol/L (98-107); Glucose 94 mg/dL (74-106); Potassium 4.3 mmol/L (3.5-5.1); Sodium 139 mmol/L (136-145); Total Protein 7.6 g/dL (6.4-8.2)
[2019-02-26 11:28] LABS: CEA 17.3 ng/mL (See Note)
[2019-03-09] MEDS: Normal Saline Flush 10 ML SYR IVP (07:14)
[2019-03-09 07:25] LABS: Abs Immature Grans 0.03 k/cumm (0.0-0.09); Absolute Basophil Count 0.01 k/cumm (0.0-0.2); Absolute Eosinophil Count 0.03 k/cumm (0.0-0.7); Absolute Monocyte Count 0.58 k/cumm (0.11-0.7); Absolute Neutrophil Count 6.39 k/cumm (1.2-6.7); Basophils % 0.1; Eosinophils % 0.4; HCT 39.4 % (36.0-46.0); HGB 12.8 g/dL (12.0-15.5); Immature Grans % 0.4 %; Mean Corp. HGB Concentration 32.5 g/dL (32.0-36.0); Mean Corpuscular Hemoglobin 31.1 pg (27.0-33.0); Mean Corpuscular Volume 95.6 fL (80-95); Mean Platelet Volume 10.2 fL (8.0-11.0); Monocytes % 7.5; Neutrophils % 82.6; Platelet Count 129 x1000/uL (130-400); RBC 4.12 m/cumm (4.00-5.20); RBC Distribution Width 17.5 % (11.7-14.6); White Blood Cell Count 7.74 k/cumm (4.4-10.8)
[2019-03-09 07:35] LABS: ALT 25 U/L (14-59); AST 20 U/L (15-37); Albumin 3.4 g/dL (3.4-5.0); Alkaline Phosphatase 139 U/L (46-116); Anion Gap 7.5 mmol/L (3-11); BUN 10 mg/dL (7-18); Bilirubin, Total 0.5 mg/dL (0.2-1.0); CO2 28.5 mmol/L (21.0-32.0); CREATININE 0.67 mg/dL (0.55-1.02); Chloride 106 mmol/L (98-107); Glucose 96 mg/dL (74-106); Potassium 4.1 mmol/L (3.5-5.1); Sodium 142 mmol/L (136-145); Total Protein 6.7 g/dL (6.4-8.2)
[2019-03-23] MEDS: Normal Saline Flush 10 ML SYR IVP (10:40)
[2019-03-23 10:59] LABS: Abs Immature Grans 0.05 k/cumm (0.0-0.09); Absolute Basophil Count 0.01 k/cumm (0.0-0.2); Absolute Eosinophil Count 0.03 k/cumm (0.0-0.7); Absolute Lymphocyte Count 0.77 k/cumm (1.2-3.4); Absolute Neutrophil Count 8.35 k/cumm (1.2-6.7); Basophils % 0.1; Eosinophils % 0.3; HCT 39.1 % (36.0-46.0); HGB 12.8 g/dL (12.0-15.5); Immature Grans % 0.5 %; Lymphocytes % 7.8; Mean Corp. HGB Concentration 32.7 g/dL (32.0-36.0); Mean Corpuscular Hemoglobin 31.1 pg (27.0-33.0); Mean Corpuscular Volume 95.1 fL (80-95); Mean Platelet Volume 9.7 fL (8.0-11.0); Monocytes % 7.1; Neutrophils % 84.2; Platelet Count 101 x1000/uL (130-400); RBC 4.11 m/cumm (4.00-5.20); RBC Distribution Width 16.7 % (11.7-14.6); White Blood Cell Count 9.91 k/cumm (4.4-10.8)
[2019-03-23 11:10] LABS: ALT 29 U/L (14-59); AST 22 U/L (15-37); Albumin 3.6 g/dL (3.4-5.0); Alkaline Phosphatase 148 U/L (46-116); Anion Gap 8.6 mmol/L (3-11); BUN 11 mg/dL (7-18); Bilirubin, Total 0.7 mg/dL (0.2-1.0); CO2 27.4 mmol/L (21.0-32.0); CREATININE 0.74 mg/dL (0.55-1.02); Calcium 8.8 mg/dL (8.5-10.1); Chloride 105 mmol/L (98-107); Glucose 97 mg/dL (74-106); Potassium 3.8 mmol/L (3.5-5.1); Sodium 141 mmol/L (136-145); Total Protein 6.8 g/dL (6.4-8.2)
[2019-03-26 12:23] LABS: CEA 16.3 ng/mL (See Note)
== END 2019-03-23 23:59 | disposition home or self-care (01) ==
LOC: INF 02:51
PROVIDERS: PCP Hospitalist; Visit Provider Internal Medicine Hematology & Oncology
DX: C20 Malignant neoplasm of rectum (principal); Z45.2 Encounter for adjustment and management of vascular access device
CPT/HCPCS: 36591; 80053; 82378; 85025

== ENCOUNTER 2019-03-23 13:08 | Outpatient (REF) | payer BC, SELFPAY ==
[2019-03-23 14:47] LABS: Bilirubin Negative (Negative); Blood Negative (Negative); Clarity Clear (Clear); Glucose Negative (Negative); Ketones Negative (Negative); Leukocyte Esterase Small (Negative); Nitrite Negative (Negative); Specific Gravity 1.025 (1.005-1.025); Urobilinogen 0.2 EU/dL (Up TO 0.2); pH 6.5 (5-8)
[2019-03-23 15:04] LABS: Bacteria Few HPF (Negative); C & S Indicated? Yes; Casts Negative LPF (Negative); Crystals Negative HPF (Negative); Epithelial Cells Few HPF (Negative); Mucus Negative (Negative); Other Cells Few Renal (Negative); WBC 20-50 HPF (0-5)
== END 2019-03-23 13:28 ==
LOC: LBN 13:08
PROVIDERS: PCP Hospitalist; Visit Provider Internal Medicine Hematology & Oncology
DX: D70.1 Agranulocytosis secondary to cancer chemotherapy (principal); C20 Malignant neoplasm of rectum; T45.1X5A Adverse effect of antineoplastic and immunosuppressive drugs, initial encounter
CPT/HCPCS: 81003; 81015; 87086

== ENCOUNTER 2019-04-20 04:31 | Outpatient (RCR) | payer BC, SELFPAY ==
[2019-04-06 10:18] LABS: Absolute Basophil Count 0.01 k/cumm (0.0-0.2); Absolute Eosinophil Count 0.02 k/cumm (0.0-0.7); Absolute Lymphocyte Count 0.58 k/cumm (1.2-3.4); Absolute Monocyte Count 0.45 k/cumm (0.11-0.7); Absolute Neutrophil Count 2.45 k/cumm (1.2-6.7); Basophils % 0.3; Eosinophils % 0.6; HCT 40.7 % (36.0-46.0); HGB 13.2 g/dL (12.0-15.5); Lymphocytes % 16.5; Mean Corp. HGB Concentration 32.4 g/dL (32.0-36.0); Mean Corpuscular Hemoglobin 31.1 pg (27.0-33.0); Mean Corpuscular Volume 95.8 fL (80-95); Mean Platelet Volume 9.5 fL (8.0-11.0); Monocytes % 12.8; Neutrophils % 69.8; Platelet Count 113 x1000/uL (130-400); RBC 4.25 m/cumm (4.00-5.20); RBC Distribution Width 15.8 % (11.7-14.6); White Blood Cell Count 3.51 k/cumm (4.4-10.8)
[2019-04-06] MEDS: Normal Saline Flush 10 ML SYR IVP (10:19)
[2019-04-06 10:36] LABS: ALT 22 U/L (14-59); AST 20 U/L (15-37); Albumin 3.7 g/dL (3.4-5.0); Alkaline Phosphatase 104 U/L (46-116); Anion Gap 9.1 mmol/L (3-11); BUN 10 mg/dL (7-18); CO2 26.9 mmol/L (21.0-32.0); CREATININE 0.68 mg/dL (0.55-1.02); Calcium 8.8 mg/dL (8.5-10.1); Chloride 104 mmol/L (98-107); Glucose 95 mg/dL (74-106); Sodium 140 mmol/L (136-145); Total Protein 7.1 g/dL (6.4-8.2)
[2019-04-09 11:10] LABS: CEA 19.1 ng/mL (See Note)
[2019-04-20] MEDS: Normal Saline Flush 10 ML SYR IVP (09:25)
[2019-04-20 09:40] LABS: Absolute Basophil Count 0.01 k/cumm (0.0-0.2); Absolute Eosinophil Count 0.05 k/cumm (0.0-0.7); Absolute Lymphocyte Count 0.59 k/cumm (1.2-3.4); Absolute Monocyte Count 0.39 k/cumm (0.11-0.7); Absolute Neutrophil Count 2.55 k/cumm (1.2-6.7); Basophils % 0.3; Eosinophils % 1.4; HCT 39.1 % (36.0-46.0); HGB 12.9 g/dL (12.0-15.5); Lymphocytes % 16.4; Mean Corpuscular Hemoglobin 31.4 pg (27.0-33.0); Mean Corpuscular Volume 95.1 fL (80-95); Monocytes % 10.9; Platelet Count 112 x1000/uL (130-400); RBC 4.11 m/cumm (4.00-5.20); RBC Distribution Width 15.5 % (11.7-14.6); White Blood Cell Count 3.59 k/cumm (4.4-10.8)
[2019-04-20 10:02] LABS: ALT 24 U/L (14-59); AST 19 U/L (15-37); Albumin 3.7 g/dL (3.4-5.0); Alkaline Phosphatase 103 U/L (46-116); Anion Gap 9.5 mmol/L (3-11); BUN 12 mg/dL (7-18); CO2 26.5 mmol/L (21.0-32.0); Chloride 105 mmol/L (98-107); Glucose 102 mg/dL (74-106); Potassium 3.8 mmol/L (3.5-5.1); Sodium 141 mmol/L (136-145); Total Protein 7.1 g/dL (6.4-8.2)
[2019-04-23 09:39] LABS: CEA 19.4 ng/mL (See Note)
== END 2019-04-21 23:59 | disposition home or self-care (01) ==
LOC: INF 04:31
PROVIDERS: PCP Hospitalist; Visit Provider Internal Medicine Hematology & Oncology
DX: C20 Malignant neoplasm of rectum (principal); Z45.2 Encounter for adjustment and management of vascular access device
CPT/HCPCS: 36591; 80053; 82378; 85025

== ENCOUNTER 2019-05-18 03:47 | Outpatient (RCR) | payer BC, SELFPAY ==
[2019-05-04] MEDS: Normal Saline Flush 10 ML SYR IVP (11:39)
[2019-05-04 11:50] LABS: Absolute Basophil Count 0.01 k/cumm (0.0-0.2); Absolute Eosinophil Count 0.06 k/cumm (0.0-0.7); Absolute Lymphocyte Count 0.56 k/cumm (1.2-3.4); Absolute Monocyte Count 0.45 k/cumm (0.11-0.7); Absolute Neutrophil Count 2.39 k/cumm (1.2-6.7); Basophils % 0.3; Eosinophils % 1.7; HCT 40.4 % (36.0-46.0); HGB 13.3 g/dL (12.0-15.5); Lymphocytes % 16.1; Mean Corp. HGB Concentration 32.9 g/dL (32.0-36.0); Mean Corpuscular Hemoglobin 31.1 pg (27.0-33.0); Mean Corpuscular Volume 94.6 fL (80-95); Mean Platelet Volume 9.6 fL (8.0-11.0); Neutrophils % 68.9; Platelet Count 128 x1000/uL (130-400); RBC 4.27 m/cumm (4.00-5.20); RBC Distribution Width 15.2 % (11.7-14.6); White Blood Cell Count 3.47 k/cumm (4.4-10.8)
[2019-05-04 12:13] LABS: ALT 23 U/L (14-59); AST 18 U/L (15-37); Albumin 3.7 g/dL (3.4-5.0); Alkaline Phosphatase 107 U/L (46-116); Anion Gap 6.9 mmol/L (3-11); BUN 14 mg/dL (7-18); CO2 30.1 mmol/L (21.0-32.0); CREATININE 0.79 mg/dL (0.55-1.02); Calcium 8.8 mg/dL (8.5-10.1); Chloride 103 mmol/L (98-107); Glucose 96 mg/dL (74-106); Potassium 3.9 mmol/L (3.5-5.1); Sodium 140 mmol/L (136-145); Total Protein 7.5 g/dL (6.4-8.2)
[2019-05-18] MEDS: Normal Saline Flush 10 ML SYR IVP (09:20)
[2019-05-18 09:38] LABS: Absolute Basophil Count 0.01 k/cumm (0.0-0.2); Absolute Eosinophil Count 0.05 k/cumm (0.0-0.7); Absolute Lymphocyte Count 0.51 k/cumm (1.2-3.4); Absolute Monocyte Count 0.48 k/cumm (0.11-0.7); Absolute Neutrophil Count 2.54 k/cumm (1.2-6.7); Basophils % 0.3; Eosinophils % 1.4; HCT 42.5 % (36.0-46.0); HGB 14.2 g/dL (12.0-15.5); Lymphocytes % 14.2; Mean Corp. HGB Concentration 33.4 g/dL (32.0-36.0); Mean Corpuscular Hemoglobin 31.6 pg (27.0-33.0); Mean Corpuscular Volume 94.4 fL (80-95); Mean Platelet Volume 8.7 fL (8.0-11.0); Monocytes % 13.4; Neutrophils % 70.7; Platelet Count 153 x1000/uL (130-400); RBC Distribution Width 15.4 % (11.7-14.6); White Blood Cell Count 3.59 k/cumm (4.4-10.8)
[2019-05-18 09:53] LABS: ALT 24 U/L (14-59); AST 18 U/L (15-37); Albumin 3.7 g/dL (3.4-5.0); Alkaline Phosphatase 97 U/L (46-116); Anion Gap 6.2 mmol/L (3-11); BUN 18 mg/dL (7-18); CO2 28.8 mmol/L (21.0-32.0); CREATININE 0.91 mg/dL (0.55-1.02); Calcium 9.5 mg/dL (8.5-10.1); Chloride 104 mmol/L (98-107); Glucose 108 mg/dL (74-106); Potassium 4.7 mmol/L (3.5-5.1); Sodium 139 mmol/L (136-145); Total Protein 7.7 g/dL (6.4-8.2)
[2019-05-21 10:20] LABS: CEA 26.4 ng/mL (See Note)
== END 2019-05-22 23:59 | disposition home or self-care (01) ==
LOC: INF 03:47
PROVIDERS: PCP Hospitalist; Visit Provider Internal Medicine Hematology & Oncology
DX: C20 Malignant neoplasm of rectum (principal); Z45.2 Encounter for adjustment and management of vascular access device
CPT/HCPCS: 36591; 80053; 82378; 85025

== ENCOUNTER 2019-06-15 03:33 | Outpatient (RCR) | payer BC, SELFPAY ==
[2019-06-01] MEDS: Normal Saline Flush 10 ML SYR IVP (10:21)
[2019-06-01 10:24] LABS: Absolute Basophil Count 0.01 k/cumm (0.0-0.2); Absolute Eosinophil Count 0.06 k/cumm (0.0-0.7); Absolute Monocyte Count 0.45 k/cumm (0.11-0.7); Absolute Neutrophil Count 2.64 k/cumm (1.2-6.7); Basophils % 0.3; Eosinophils % 1.6; HCT 42.6 % (36.0-46.0); HGB 14.3 g/dL (12.0-15.5); Lymphocytes % 13.7; Mean Corp. HGB Concentration 33.6 g/dL (32.0-36.0); Mean Corpuscular Hemoglobin 31.8 pg (27.0-33.0); Mean Corpuscular Volume 94.7 fL (80-95); Mean Platelet Volume 9.4 fL (8.0-11.0); Monocytes % 12.3; Neutrophils % 72.1; Platelet Count 151 x1000/uL (130-400); RBC Distribution Width 15.7 % (11.7-14.6); White Blood Cell Count 3.66 k/cumm (4.4-10.8)
[2019-06-01 10:41] LABS: ALT 26 U/L (14-59); AST 18 U/L (15-37); Albumin 3.6 g/dL (3.4-5.0); Alkaline Phosphatase 94 U/L (46-116); Anion Gap 9.3 mmol/L (3-11); BUN 15 mg/dL (7-18); Bilirubin, Total 1.3 mg/dL (0.2-1.0); CO2 26.7 mmol/L (21.0-32.0); CREATININE 0.94 mg/dL (0.55-1.02); Calcium 9.5 mg/dL (8.5-10.1); Chloride 102 mmol/L (98-107); Glucose 106 mg/dL (74-106); Potassium 4.5 mmol/L (3.5-5.1); Sodium 138 mmol/L (136-145); Total Protein 7.5 g/dL (6.4-8.2)
[2019-06-05 18:32] LABS: CEA 28.1 ng/mL (See Note)
[2019-06-15 10:08] LABS: Abs Immature Grans 0.01 k/cumm (0.0-0.09); Absolute Basophil Count 0.01 k/cumm (0.0-0.2); Absolute Eosinophil Count 0.09 k/cumm (0.0-0.7); Absolute Lymphocyte Count 0.64 k/cumm (1.2-3.4); Absolute Monocyte Count 0.38 k/cumm (0.11-0.7); Absolute Neutrophil Count 2.75 k/cumm (1.2-6.7); Basophils % 0.3; Eosinophils % 2.3; HCT 40.2 % (36.0-46.0); HGB 13.1 g/dL (12.0-15.5); Immature Grans % 0.3 %; Lymphocytes % 16.5; Mean Corp. HGB Concentration 32.6 g/dL (32.0-36.0); Mean Corpuscular Hemoglobin 31.3 pg (27.0-33.0); Mean Corpuscular Volume 95.9 fL (80-95); Mean Platelet Volume 8.8 fL (8.0-11.0); Monocytes % 9.8; Neutrophils % 70.8; Platelet Count 150 x1000/uL (130-400); RBC 4.19 m/cumm (4.00-5.20); RBC Distribution Width 15.8 % (11.7-14.6); White Blood Cell Count 3.88 k/cumm (4.4-10.8)
[2019-06-15] MEDS: Normal Saline Flush 10 ML SYR IVP (10:08)
[2019-06-15 10:21] LABS: ALT 24 U/L (14-59); AST 18 U/L (15-37); Albumin 3.6 g/dL (3.4-5.0); Alkaline Phosphatase 87 U/L (46-116); Anion Gap 8.4 mmol/L (3-11); BUN 18 mg/dL (7-18); Bilirubin, Total 0.9 mg/dL (0.2-1.0); CO2 26.6 mmol/L (21.0-32.0); CREATININE 0.83 mg/dL (0.55-1.02); Calcium 9.2 mg/dL (8.5-10.1); Chloride 104 mmol/L (98-107); Glucose 98 mg/dL (74-106); Potassium 4.2 mmol/L (3.5-5.1); Sodium 139 mmol/L (136-145); Total Protein 7.3 g/dL (6.4-8.2)
[2019-06-18 11:07] LABS: CEA 24.8 ng/mL (See Note)
== END 2019-06-21 23:59 | disposition home or self-care (01) ==
LOC: INF 03:33
PROVIDERS: PCP Hospitalist; Visit Provider Internal Medicine Hematology & Oncology
DX: C20 Malignant neoplasm of rectum (principal); Z45.2 Encounter for adjustment and management of vascular access device
CPT/HCPCS: 36591; 80053; 82378; 85025

== ENCOUNTER 2019-07-13 04:32 | Outpatient (RCR) | payer BC, SELFPAY ==
[2019-06-29 10:16] LABS: Abs Immature Grans 0.01 k/cumm (0.0-0.09); Absolute Basophil Count 0.01 k/cumm (0.0-0.2); Absolute Eosinophil Count 0.11 k/cumm (0.0-0.7); Absolute Monocyte Count 0.42 k/cumm (0.11-0.7); Absolute Neutrophil Count 2.61 k/cumm (1.2-6.7); Basophils % 0.3; HCT 41.6 % (36.0-46.0); HGB 13.8 g/dL (12.0-15.5); Immature Grans % 0.3 %; Lymphocytes % 13.7; Mean Corp. HGB Concentration 33.2 g/dL (32.0-36.0); Mean Corpuscular Hemoglobin 31.6 pg (27.0-33.0); Mean Corpuscular Volume 95.2 fL (80-95); Mean Platelet Volume 9.1 fL (8.0-11.0); Monocytes % 11.5; Neutrophils % 71.2; Platelet Count 143 x1000/uL (130-400); RBC 4.37 m/cumm (4.00-5.20); RBC Distribution Width 15.9 % (11.7-14.6); White Blood Cell Count 3.66 k/cumm (4.4-10.8)
[2019-06-29 10:27] LABS: ALT 25 U/L (14-59); AST 20 U/L (15-37); Albumin 3.7 g/dL (3.4-5.0); Alkaline Phosphatase 87 U/L (46-116); Anion Gap 9.2 mmol/L (3-11); BUN 18 mg/dL (7-18); Bilirubin, Total 1.1 mg/dL (0.2-1.0); CO2 26.8 mmol/L (21.0-32.0); CREATININE 0.78 mg/dL (0.55-1.02); Calcium 9.6 mg/dL (8.5-10.1); Chloride 100 mmol/L (98-107); Glucose 101 mg/dL (74-106); Potassium 4.3 mmol/L (3.5-5.1); Sodium 136 mmol/L (136-145); Total Protein 7.7 g/dL (6.4-8.2)
[2019-07-02 08:54] LABS: CEA 23.7 ng/mL (See Note)
[2019-07-13] MEDS: Normal Saline Flush 10 ML SYR IVP (08:59)
[2019-07-13 09:05] LABS: Absolute Basophil Count 0.01 k/cumm (0.0-0.2); Absolute Eosinophil Count 0.15 k/cumm (0.0-0.7); Absolute Lymphocyte Count 0.59 k/cumm (1.2-3.4); Absolute Monocyte Count 0.55 k/cumm (0.11-0.7); Basophils % 0.2; Eosinophils % 3.3; HCT 42.1 % (36.0-46.0); HGB 14.1 g/dL (12.0-15.5); Lymphocytes % 12.8; Mean Corp. HGB Concentration 33.5 g/dL (32.0-36.0); Mean Corpuscular Hemoglobin 31.9 pg (27.0-33.0); Mean Corpuscular Volume 95.2 fL (80-95); Mean Platelet Volume 9.3 fL (8.0-11.0); Neutrophils % 71.7; Platelet Count 161 x1000/uL (130-400); RBC 4.42 m/cumm (4.00-5.20); RBC Distribution Width 15.9 % (11.7-14.6)
[2019-07-13 09:24] LABS: ALT 24 U/L (14-59); AST 17 U/L (15-37); Albumin 3.7 g/dL (3.4-5.0); Alkaline Phosphatase 91 U/L (46-116); BUN 13 mg/dL (7-18); Bilirubin, Total 1.1 mg/dL (0.2-1.0); CREATININE 0.85 mg/dL (0.55-1.02); Calcium 9.3 mg/dL (8.5-10.1); Chloride 102 mmol/L (98-107); Glucose 105 mg/dL (74-106); Potassium 4.3 mmol/L (3.5-5.1); Sodium 137 mmol/L (136-145); Total Protein 7.6 g/dL (6.4-8.2)
[2019-07-16 10:59] LABS: CEA 24.2 ng/mL (See Note)
== END 2019-07-22 23:59 | disposition home or self-care (01) ==
LOC: INF 04:32
PROVIDERS: PCP Hospitalist; Visit Provider Internal Medicine Hematology & Oncology
DX: C20 Malignant neoplasm of rectum (principal); Z45.2 Encounter for adjustment and management of vascular access device
CPT/HCPCS: 36591; 80053; 82378; 85025

== ENCOUNTER 2019-08-10 04:34 | Outpatient (RCR) | payer BC, SELFPAY ==
[2019-07-27] MEDS: Normal Saline Flush 10 ML SYR IVP (10:12)
[2019-07-27 10:21] LABS: Absolute Basophil Count 0.01 k/cumm (0.0-0.2); Absolute Eosinophil Count 0.15 k/cumm (0.0-0.7); Absolute Monocyte Count 0.68 k/cumm (0.11-0.7); Absolute Neutrophil Count 4.19 k/cumm (1.2-6.7); Basophils % 0.2; Eosinophils % 2.6; HCT 43.1 % (36.0-46.0); HGB 14.3 g/dL (12.0-15.5); Lymphocytes % 12.2; Mean Corp. HGB Concentration 33.2 g/dL (32.0-36.0); Mean Corpuscular Hemoglobin 31.7 pg (27.0-33.0); Mean Corpuscular Volume 95.6 fL (80-95); Mean Platelet Volume 9.2 fL (8.0-11.0); Monocytes % 11.9; Neutrophils % 73.1; Platelet Count 163 x1000/uL (130-400); RBC 4.51 m/cumm (4.00-5.20); White Blood Cell Count 5.73 k/cumm (4.4-10.8)
[2019-07-27 10:31] LABS: ALT 23 U/L (14-59); AST 18 U/L (15-37); Albumin 3.8 g/dL (3.4-5.0); Alkaline Phosphatase 93 U/L (46-116); Anion Gap 7.7 mmol/L (3-11); BUN 19 mg/dL (7-18); Bilirubin, Total 1.2 mg/dL (0.2-1.0); CO2 26.3 mmol/L (21.0-32.0); CREATININE 0.93 mg/dL (0.55-1.02); Calcium 9.5 mg/dL (8.5-10.1); Chloride 103 mmol/L (98-107); Glucose 115 mg/dL (74-106); Potassium 4.5 mmol/L (3.5-5.1); Sodium 137 mmol/L (136-145); Total Protein 7.7 g/dL (6.4-8.2)
[2019-07-30 12:44] LABS: CEA 25.9 ng/mL (See Note)
[2019-08-10] MEDS: Normal Saline Flush 10 ML SYR IVP ×3 (09:07→09:13)
[2019-08-10 09:17] LABS: Absolute Basophil Count 0.02 k/cumm (0.0-0.2); Absolute Eosinophil Count 0.09 k/cumm (0.0-0.7); Absolute Lymphocyte Count 0.63 k/cumm (1.2-3.4); Absolute Monocyte Count 0.44 k/cumm (0.11-0.7); Absolute Neutrophil Count 2.56 k/cumm (1.2-6.7); Basophils % 0.5; Eosinophils % 2.4; HCT 42.5 % (36.0-46.0); Lymphocytes % 16.8; Mean Corp. HGB Concentration 32.9 g/dL (32.0-36.0); Mean Corpuscular Hemoglobin 31.7 pg (27.0-33.0); Mean Corpuscular Volume 96.4 fL (80-95); Mean Platelet Volume 9.4 fL (8.0-11.0); Monocytes % 11.8; Neutrophils % 68.5; Platelet Count 152 x1000/uL (130-400); RBC 4.41 m/cumm (4.00-5.20); RBC Distribution Width 15.7 % (11.7-14.6); White Blood Cell Count 3.74 k/cumm (4.4-10.8)
[2019-08-10 09:47] LABS: ALT 23 U/L (14-59); AST 18 U/L (15-37); Albumin 3.6 g/dL (3.4-5.0); Alkaline Phosphatase 82 U/L (46-116); Anion Gap 8.3 mmol/L (3-11); BUN 20 mg/dL (7-18); Bilirubin, Total 1.2 mg/dL (0.2-1.0); CO2 26.7 mmol/L (21.0-32.0); CREATININE 1.01 mg/dL (0.55-1.02); Calcium 9.4 mg/dL (8.5-10.1); Chloride 103 mmol/L (98-107); Estimated GFR 56.91 (mL/min/1.73m2); Glucose 114 mg/dL (74-106); Potassium 4.1 mmol/L (3.5-5.1); Sodium 138 mmol/L (136-145); Total Protein 7.3 g/dL (6.4-8.2)
[2019-08-13 10:26] LABS: CEA 26.4 ng/mL (See Note)
== END 2019-08-21 23:59 | disposition home or self-care (01) ==
LOC: INF 04:34
PROVIDERS: PCP Hospitalist; Visit Provider Internal Medicine Hematology & Oncology
DX: C20 Malignant neoplasm of rectum (principal); Z45.2 Encounter for adjustment and management of vascular access device
CPT/HCPCS: 36591; 80053; 82378; 85025

== ENCOUNTER 2019-09-21 03:55 | Outpatient (RCR) | payer BC, SELFPAY ==
[2019-08-23] MEDS: Normal Saline Flush 10 ML SYR IVP (10:45)
[2019-08-23 10:47] LABS: Absolute Basophil Count 0.01 k/cumm (0.0-0.2); Absolute Eosinophil Count 0.05 k/cumm (0.0-0.7); Absolute Lymphocyte Count 0.66 k/cumm (1.2-3.4); Absolute Monocyte Count 0.41 k/cumm (0.11-0.7); Absolute Neutrophil Count 2.41 k/cumm (1.2-6.7); Basophils % 0.3; Eosinophils % 1.4; HGB 13.8 g/dL (12.0-15.5); Lymphocytes % 18.6; Mean Corp. HGB Concentration 32.9 g/dL (32.0-36.0); Mean Corpuscular Hemoglobin 31.5 pg (27.0-33.0); Mean Corpuscular Volume 95.9 fL (80-95); Mean Platelet Volume 9.2 fL (8.0-11.0); Monocytes % 11.6; Neutrophils % 68.1; Platelet Count 175 x1000/uL (130-400); RBC 4.38 m/cumm (4.00-5.20); RBC Distribution Width 15.8 % (11.7-14.6); White Blood Cell Count 3.54 k/cumm (4.4-10.8)
[2019-08-23 11:57] LABS: ALT 23 U/L (14-59); AST 18 U/L (15-37); Albumin 3.7 g/dL (3.4-5.0); Alkaline Phosphatase 80 U/L (46-116); Anion Gap 9.1 mmol/L (3-11); BUN 13 mg/dL (7-18); Bilirubin, Total 1.2 mg/dL (0.2-1.0); CO2 26.9 mmol/L (21.0-32.0); CREATININE 0.84 mg/dL (0.55-1.02); Calcium 9.6 mg/dL (8.5-10.1); Chloride 102 mmol/L (98-107); Glucose 109 mg/dL (74-106); Potassium 4.1 mmol/L (3.5-5.1); Sodium 138 mmol/L (136-145); Total Protein 7.4 g/dL (6.4-8.2)
[2019-08-24 12:55] LABS: CEA 30.8 ng/mL (See Note)
[2019-09-07] MEDS: Normal Saline Flush 10 ML SYR IVP (08:20)
[2019-09-07 08:45] LABS: Abs Immature Grans 0.01 k/cumm (0.0-0.09); Absolute Basophil Count 0.02 k/cumm (0.0-0.2); Absolute Eosinophil Count 0.07 k/cumm (0.0-0.7); Absolute Lymphocyte Count 0.52 k/cumm (1.2-3.4); Absolute Monocyte Count 0.43 k/cumm (0.11-0.7); Absolute Neutrophil Count 1.93 k/cumm (1.2-6.7); Basophils % 0.7; Eosinophils % 2.3; HCT 41.1 % (36.0-46.0); HGB 13.5 g/dL (12.0-15.5); Immature Grans % 0.3 %; Lymphocytes % 17.4; Mean Corp. HGB Concentration 32.8 g/dL (32.0-36.0); Mean Corpuscular Hemoglobin 31.7 pg (27.0-33.0); Mean Corpuscular Volume 96.5 fL (80-95); Monocytes % 14.4; Neutrophils % 64.9; Platelet Count 156 x1000/uL (130-400); RBC 4.26 m/cumm (4.00-5.20); RBC Distribution Width 15.6 % (11.7-14.6); White Blood Cell Count 2.98 k/cumm (4.4-10.8)
[2019-09-07 09:09] LABS: ALT 29 U/L (14-59); AST 22 U/L (15-37); Albumin 3.4 g/dL (3.4-5.0); Alkaline Phosphatase 85 U/L (46-116); Anion Gap 8.8 mmol/L (3-11); BUN 13 mg/dL (7-18); Bilirubin, Total 1.1 mg/dL (0.2-1.0); CO2 26.2 mmol/L (21.0-32.0); CREATININE 0.91 mg/dL (0.55-1.02); Calcium 9.2 mg/dL (8.5-10.1); Chloride 103 mmol/L (98-107); Glucose 105 mg/dL (74-106); Potassium 4.3 mmol/L (3.5-5.1); Sodium 138 mmol/L (136-145); Total Protein 7.1 g/dL (6.4-8.2)
[2019-09-10 10:44] LABS: CEA 28.4 ng/mL (See Note)
[2019-09-21 08:33] LABS: Absolute Basophil Count 0.01 10^3/uL (0.0-0.2); Absolute Eosinophil Count 0.09 10^3/uL (0.0-0.7); Absolute Lymphocyte Count 0.54 10^3/uL (1.2-3.4); Absolute Monocyte Count 0.47 10^3/uL (0.1-0.8); Absolute Neutrophil Count 2.71 10^3/uL (1.2-6.7); Basophils % 0.3; Eosinophils % 2.4; HCT 43.5 % (36.0-46.0); HGB 14.3 g/dL (11.2-15.7); Lymphocytes % 14.1; MCH 31.5 pg (27.0-33.0); MCHC 32.9 % (32.0-36.0); MCV 95.8 fL (80-95); MPV 9.2 fL (8.0-11.0); Monocytes % 12.3; Neutrophils % 70.9; Platelet Count 143 10^3/uL (130-400); RBC 4.54 10^6/uL (3.93-5.22); RDW-SD 52.2 fL; WBC 3.82 10^3/uL (4.4-10.8)
[2019-09-21] MEDS: Normal Saline Flush 10 ML SYR IVP (08:39)
[2019-09-21 08:53] LABS: ALT 27 U/L (14-59); AST 19 U/L (15-37); Albumin 3.6 g/dL (3.4-5.0); Alkaline Phosphatase 91 U/L (46-116); Anion Gap 7.6 mmol/L (3-11); BUN 13 mg/dL (7-18); Bilirubin, Total 1.1 mg/dL (0.2-1.0); CO2 26.4 mmol/L (21.0-32.0); CREATININE 0.88 mg/dL (0.55-1.02); Calcium 9.5 mg/dL (8.5-10.1); Chloride 103 mmol/L (98-107); Glucose 116 mg/dL (74-106); Potassium 4.5 mmol/L (3.5-5.1); Sodium 137 mmol/L (136-145); Total Protein 7.2 g/dL (6.4-8.2)
[2019-09-24 09:35] LABS: CEA 29.2 ng/mL (See Note)
== END 2019-09-21 23:59 | disposition home or self-care (01) ==
LOC: INF 03:55
PROVIDERS: PCP Hospitalist; Visit Provider Internal Medicine Hematology & Oncology
DX: C20 Malignant neoplasm of rectum (principal); Z45.2 Encounter for adjustment and management of vascular access device
CPT/HCPCS: 36591; 80053; 82378; 85025

== ENCOUNTER 2019-10-19 04:57 | Outpatient (RCR) | payer BC, SELFPAY ==
[2019-10-05] MEDS: Normal Saline Flush 10 ML SYR IVP (09:00)
[2019-10-05 09:11] LABS: Abs Immature Grans 0.02 10^3/uL (0.0-0.06); Absolute Basophil Count 0.02 10^3/uL (0.0-0.2); Absolute Eosinophil Count 0.06 10^3/uL (0.0-0.7); Absolute Lymphocyte Count 0.61 10^3/uL (1.2-3.4); Absolute Monocyte Count 0.44 10^3/uL (0.1-0.8); Absolute Neutrophil Count 2.36 10^3/uL (1.2-6.7); Basophils % 0.6; Eosinophils % 1.7; HCT 41.4 % (36.0-46.0); HGB 13.7 g/dL (11.2-15.7); Immature Grans % 0.6; Lymphocytes % 17.4; MCH 31.4 pg (27.0-33.0); MCHC 33.1 % (32.0-36.0); Monocytes % 12.5; Neutrophils % 67.2; Nucleated RBC 0 %; Platelet Count 141 10^3/uL (130-400); RBC 4.36 10^6/uL (3.93-5.22); RDW 15.2 % (11.7-14.6); RDW-SD 52.9 fL; WBC 3.51 10^3/uL (4.4-10.8)
[2019-10-05 09:33] LABS: ALT 29 U/L (14-59); AST 16 U/L (15-37); Albumin 3.5 g/dL (3.4-5.0); Alkaline Phosphatase 78 U/L (46-116); Anion Gap 8.6 mmol/L (3-11); BUN 18 mg/dL (7-18); Bilirubin, Total 1.2 mg/dL (0.2-1.0); CO2 24.4 mmol/L (21.0-32.0); CREATININE 0.88 mg/dL (0.55-1.02); Calcium 9.3 mg/dL (8.5-10.1); Chloride 104 mmol/L (98-107); Glucose 108 mg/dL (74-106); Potassium 4.2 mmol/L (3.5-5.1); Sodium 137 mmol/L (136-145); Total Protein 7.2 g/dL (6.4-8.2)
[2019-10-08 09:54] LABS: CEA 31.8 ng/mL (See Note)
[2019-10-19] MEDS: Normal Saline Flush 10 ML SYR IVP (08:30)
[2019-10-19 08:48] LABS: Abs Immature Grans 0.01 10^3/uL (0.0-0.06); Absolute Basophil Count 0.01 10^3/uL (0.0-0.2); Absolute Eosinophil Count 0.07 10^3/uL (0.0-0.7); Absolute Lymphocyte Count 0.59 10^3/uL (1.2-3.4); Absolute Monocyte Count 0.49 10^3/uL (0.1-0.8); Absolute Neutrophil Count 2.25 10^3/uL (1.2-6.7); Basophils % 0.3; HCT 41.6 % (36.0-46.0); HGB 13.4 g/dL (11.2-15.7); Immature Grans % 0.3; Lymphocytes % 17.3; MCH 31.2 pg (27.0-33.0); MCHC 32.2 % (32.0-36.0); MPV 9.9 fL (8.0-11.0); Monocytes % 14.3; Neutrophils % 65.8; Nucleated RBC 0 %; Platelet Count 145 10^3/uL (130-400); RBC 4.29 10^6/uL (3.93-5.22); RDW 15.3 % (11.7-14.6); RDW-SD 53.3 fL; WBC 3.42 10^3/uL (4.4-10.8)
[2019-10-19 09:17] LABS: ALT 24 U/L (14-59); AST 17 U/L (15-37); Albumin 3.4 g/dL (3.4-5.0); Alkaline Phosphatase 76 U/L (46-116); Anion Gap 8.4 mmol/L (3-11); BUN 13 mg/dL (7-18); Bilirubin, Total 0.9 mg/dL (0.2-1.0); CO2 27.6 mmol/L (21.0-32.0); CREATININE 0.95 mg/dL (0.55-1.02); Calcium 9.3 mg/dL (8.5-10.1); Chloride 105 mmol/L (98-107); Glucose 94 mg/dL (74-106); Potassium 4.4 mmol/L (3.5-5.1); Sodium 141 mmol/L (136-145); Total Protein 6.8 g/dL (6.4-8.2)
[2019-10-22 09:15] LABS: CEA 31.3 ng/mL (See Note)
== END 2019-10-22 23:59 | disposition home or self-care (01) ==
LOC: INF 04:57
PROVIDERS: PCP Hospitalist; Visit Provider Internal Medicine Hematology & Oncology
DX: C20 Malignant neoplasm of rectum (principal); Z45.2 Encounter for adjustment and management of vascular access device
CPT/HCPCS: 36591; 80053; 82378; 85025

== ENCOUNTER 2019-11-16 04:28 | Outpatient (RCR) | payer BC, SELFPAY ==
[2019-11-02] MEDS: Normal Saline Flush 10 ML SYR IVP (09:28)
[2019-11-02 09:41] LABS: Abs Immature Grans 0.01 10^3/uL (0.0-0.06); Absolute Basophil Count 0.02 10^3/uL (0.0-0.2); Absolute Eosinophil Count 0.06 10^3/uL (0.0-0.7); Absolute Lymphocyte Count 0.69 10^3/uL (1.2-3.4); Absolute Monocyte Count 0.44 10^3/uL (0.1-0.8); Absolute Neutrophil Count 2.59 10^3/uL (1.2-6.7); Basophils % 0.5; Eosinophils % 1.6; HGB 13.6 g/dL (11.2-15.7); Immature Grans % 0.3; Lymphocytes % 18.1; MCH 32.3 pg (27.0-33.0); MPV 9.9 fL (8.0-11.0); Monocytes % 11.5; Nucleated RBC 0 %; Platelet Count 146 10^3/uL (130-400); RBC 4.21 10^6/uL (3.93-5.22); RDW 15.9 % (11.7-14.6); RDW-SD 53.6 fL; WBC 3.81 10^3/uL (4.4-10.8)
[2019-11-02 09:56] LABS: ALT 24 U/L (14-59); AST 17 U/L (15-37); Albumin 3.6 g/dL (3.4-5.0); Alkaline Phosphatase 79 U/L (46-116); Anion Gap 7.9 mmol/L (3-11); BUN 15 mg/dL (7-18); Bilirubin, Total 1.1 mg/dL (0.2-1.0); CO2 25.1 mmol/L (21.0-32.0); Calcium 9.1 mg/dL (8.5-10.1); Chloride 104 mmol/L (98-107); Glucose 95 mg/dL (74-106); Potassium 3.9 mmol/L (3.5-5.1); Sodium 137 mmol/L (136-145); Total Protein 7.1 g/dL (6.4-8.2)
[2019-11-05 15:10] LABS: CEA 33.1 ng/mL (See Note)
[2019-11-16] MEDS: Normal Saline Flush 10 ML SYR IVP (09:30)
[2019-11-16 09:47] LABS: Absolute Basophil Count 0.01 10^3/uL (0.0-0.2); Absolute Eosinophil Count 0.04 10^3/uL (0.0-0.7); Absolute Lymphocyte Count 0.65 10^3/uL (1.2-3.4); Absolute Monocyte Count 0.43 10^3/uL (0.1-0.8); Absolute Neutrophil Count 2.36 10^3/uL (1.2-6.7); Basophils % 0.3; Eosinophils % 1.1; HCT 42.2 % (36.0-46.0); Lymphocytes % 18.6; MCHC 33.2 % (32.0-36.0); MCV 96.6 fL (80-95); MPV 9.8 fL (8.0-11.0); Monocytes % 12.3; Neutrophils % 67.7; Nucleated RBC 0 %; Platelet Count 147 10^3/uL (130-400); RBC 4.37 10^6/uL (3.93-5.22); RDW 15.9 % (11.7-14.6); RDW-SD 55.5 fL; WBC 3.49 10^3/uL (4.4-10.8)
[2019-11-16 09:56] LABS: ALT 24 U/L (14-59); AST 17 U/L (15-37); Albumin 3.6 g/dL (3.4-5.0); Alkaline Phosphatase 84 U/L (46-116); Anion Gap 9.8 mmol/L (3-11); BUN 17 mg/dL (7-18); Bilirubin, Total 1.2 mg/dL (0.2-1.0); CO2 25.2 mmol/L (21.0-32.0); CREATININE 0.95 mg/dL (0.55-1.02); Calcium 9.5 mg/dL (8.5-10.1); Chloride 103 mmol/L (98-107); Glucose 109 mg/dL (74-106); Potassium 4.1 mmol/L (3.5-5.1); Sodium 138 mmol/L (136-145); Total Protein 7.2 g/dL (6.4-8.2)
[2019-11-16 22:08] LABS: CEA 30.4 ng/mL (See Note)
== END 2019-11-21 23:59 | disposition home or self-care (01) ==
LOC: INF 04:28
PROVIDERS: PCP Hospitalist; Visit Provider Nurse Practitioner Adult Health
DX: C20 Malignant neoplasm of rectum (principal); C79.89 Secondary malignant neoplasm of other specified sites; Z45.2 Encounter for adjustment and management of vascular access device
CPT/HCPCS: 36591; 80053; 82378; 85025

== ENCOUNTER 2019-12-14 05:52 | Outpatient (RCR) | payer BC, SELFPAY ==
[2019-11-30 08:35] LABS: Abs Immature Grans 0.01 10^3/uL (0.0-0.06); Absolute Basophil Count 0.01 10^3/uL (0.0-0.2); Absolute Eosinophil Count 0.06 10^3/uL (0.0-0.7); Absolute Lymphocyte Count 0.64 10^3/uL (1.2-3.4); Absolute Neutrophil Count 2.45 10^3/uL (1.2-6.7); Basophils % 0.3; Eosinophils % 1.7; HGB 13.6 g/dL (11.2-15.7); Immature Grans % 0.3; Lymphocytes % 17.9; MCH 32.2 pg (27.0-33.0); MCHC 33.2 % (32.0-36.0); MCV 96.9 fL (80-95); MPV 9.3 fL (8.0-11.0); Monocytes % 11.2; Neutrophils % 68.6; Nucleated RBC 0 %; Platelet Count 138 10^3/uL (130-400); RBC 4.23 10^6/uL (3.93-5.22); RDW 15.9 % (11.7-14.6); RDW-SD 55.3 fL; WBC 3.57 10^3/uL (4.4-10.8)
[2019-11-30] MEDS: Normal Saline Flush 10 ML SYR IVP (08:39)
[2019-11-30 08:48] LABS: ALT 24 U/L (14-59); AST 17 U/L (15-37); Albumin 3.5 g/dL (3.4-5.0); Alkaline Phosphatase 82 U/L (46-116); Anion Gap 8.9 mmol/L (3-11); BUN 15 mg/dL (7-18); Bilirubin, Total 1.1 mg/dL (0.2-1.0); CO2 26.1 mmol/L (21.0-32.0); Calcium 9.4 mg/dL (8.5-10.1); Chloride 103 mmol/L (98-107); Glucose 106 mg/dL (74-106); Potassium 4.3 mmol/L (3.5-5.1); Sodium 138 mmol/L (136-145); Total Protein 7.2 g/dL (6.4-8.2)
[2019-11-30 18:51] LABS: CEA 32.8 ng/mL (See Note)
[2019-12-14] MEDS: Normal Saline Flush 10 ML SYR IVP (08:46)
[2019-12-14 08:51] LABS: Abs Immature Grans 0.01 10^3/uL (0.0-0.06); Absolute Basophil Count 0.02 10^3/uL (0.0-0.2); Absolute Eosinophil Count 0.08 10^3/uL (0.0-0.7); Absolute Lymphocyte Count 0.63 10^3/uL (1.2-3.4); Absolute Monocyte Count 0.55 10^3/uL (0.1-0.8); Absolute Neutrophil Count 2.72 10^3/uL (1.2-6.7); Basophils % 0.5; HCT 40.4 % (36.0-46.0); HGB 13.2 g/dL (11.2-15.7); Immature Grans % 0.2; Lymphocytes % 15.7; MCH 31.7 pg (27.0-33.0); MCHC 32.7 % (32.0-36.0); MCV 97.1 fL (80-95); MPV 9.3 fL (8.0-11.0); Monocytes % 13.7; Neutrophils % 67.9; Nucleated RBC 0 %; Platelet Count 158 10^3/uL (130-400); RBC 4.16 10^6/uL (3.93-5.22); RDW 16.1 % (11.7-14.6); RDW-SD 57.2 fL; WBC 4.01 10^3/uL (4.4-10.8)
[2019-12-14 09:20] LABS: ALT 29 U/L (14-59); AST 19 U/L (15-37); Albumin 3.5 g/dL (3.4-5.0); Alkaline Phosphatase 91 U/L (46-116); Anion Gap 8.3 mmol/L (3-11); BUN 13 mg/dL (7-18); Bilirubin, Total 1.6 mg/dL (0.2-1.0); CO2 25.7 mmol/L (21.0-32.0); CREATININE 0.92 mg/dL (0.55-1.02); Calcium 9.2 mg/dL (8.5-10.1); Chloride 104 mmol/L (98-107); Glucose 136 mg/dL (74-106); Potassium 3.5 mmol/L (3.5-5.1); Sodium 138 mmol/L (136-145)
== END 2019-12-22 23:59 | disposition home or self-care (01) ==
LOC: INF 05:52
PROVIDERS: PCP Hospitalist; Visit Provider Nurse Practitioner Adult Health
DX: C20 Malignant neoplasm of rectum (principal); C79.89 Secondary malignant neoplasm of other specified sites; Z45.2 Encounter for adjustment and management of vascular access device
CPT/HCPCS: 36591; 80053; 82378; 85025

== ENCOUNTER 2020-01-11 05:06 | Outpatient (RCR) | payer BC, SELFPAY ==
[2019-12-28] MEDS: Normal Saline Flush 10 ML SYR IVP (09:35)
[2019-12-28 09:40] LABS: Abs Immature Grans 0.01 10^3/uL (0.0-0.06); Absolute Basophil Count 0.02 10^3/uL (0.0-0.2); Absolute Eosinophil Count 0.12 10^3/uL (0.0-0.7); Absolute Monocyte Count 0.41 10^3/uL (0.1-0.8); Absolute Neutrophil Count 2.46 10^3/uL (1.2-6.7); Basophils % 0.6; Eosinophils % 3.3; HCT 42.3 % (36.0-46.0); HGB 13.7 g/dL (11.2-15.7); Immature Grans % 0.3; Lymphocytes % 16.6; MCH 31.2 pg (27.0-33.0); MCHC 32.4 % (32.0-36.0); MCV 96.4 fL (80-95); MPV 10.4 fL (8.0-11.0); Monocytes % 11.3; Neutrophils % 67.9; Nucleated RBC 0 %; Platelet Count 166 10^3/uL (130-400); RBC 4.39 10^6/uL (3.93-5.22); RDW 15.7 % (11.7-14.6); RDW-SD 55.4 fL; WBC 3.62 10^3/uL (4.4-10.8)
[2019-12-28 09:51] LABS: ALT 20 U/L (14-59); AST 19 U/L (15-37); Albumin 3.5 g/dL (3.4-5.0); Alkaline Phosphatase 90 U/L (46-116); Anion Gap 8.1 mmol/L (3-11); BUN 16 mg/dL (7-18); Bilirubin, Total 1.1 mg/dL (0.2-1.0); CO2 27.9 mmol/L (21.0-32.0); CREATININE 0.88 mg/dL (0.55-1.02); Calcium 9.1 mg/dL (8.5-10.1); Chloride 105 mmol/L (98-107); Glucose 109 mg/dL (74-106); Sodium 141 mmol/L (136-145); Total Protein 7.3 g/dL (6.4-8.2)
[2019-12-31 16:38] LABS: CEA 32.3 ng/ml
[2020-01-11] MEDS: Normal Saline Flush 10 ML SYR IVP (10:04)
[2020-01-11 10:22] LABS: Abs Immature Grans 0.01 10^3/uL (0.0-0.06); Absolute Basophil Count 0.02 10^3/uL (0.0-0.2); Absolute Eosinophil Count 0.08 10^3/uL (0.0-0.7); Absolute Lymphocyte Count 0.56 10^3/uL (1.2-3.4); Absolute Monocyte Count 0.37 10^3/uL (0.1-0.8); Absolute Neutrophil Count 1.92 10^3/uL (1.2-6.7); Basophils % 0.7; Eosinophils % 2.7; HCT 41.4 % (36.0-46.0); HGB 13.7 g/dL (11.2-15.7); Immature Grans % 0.3; Lymphocytes % 18.9; MCH 32.2 pg (27.0-33.0); MCHC 33.1 % (32.0-36.0); MCV 97.2 fL (80-95); MPV 10.4 fL (8.0-11.0); Monocytes % 12.5; Neutrophils % 64.9; Nucleated RBC 0 %; Platelet Count 167 10^3/uL (130-400); RBC 4.26 10^6/uL (3.93-5.22); RDW 15.9 % (11.7-14.6); RDW-SD 55.8 fL; WBC 2.96 10^3/uL (4.4-10.8)
[2020-01-11 10:45] LABS: ALT 17 U/L (14-59); AST 14 U/L (15-37); Albumin 3.6 g/dL (3.4-5.0); Alkaline Phosphatase 91 U/L (46-116); Anion Gap 9.3 mmol/L (3-11); BUN 14 mg/dL (7-18); CO2 26.7 mmol/L (21.0-32.0); CREATININE 1.05 mg/dL (0.55-1.02); Calcium 9.3 mg/dL (8.5-10.1); Chloride 103 mmol/L (98-107); Estimated GFR 54.41 (mL/min/1.73m2); Glucose 110 mg/dL (74-106); Sodium 139 mmol/L (136-145); Total Protein 7.6 g/dL (6.4-8.2)
[2020-01-14 15:19] LABS: CEA 39.9 ng/ml
== END 2020-01-21 23:59 | disposition home or self-care (01) ==
LOC: INF 05:06
PROVIDERS: PCP Hospitalist; Visit Provider Nurse Practitioner Adult Health
DX: C20 Malignant neoplasm of rectum (principal); C79.89 Secondary malignant neoplasm of other specified sites; Z45.2 Encounter for adjustment and management of vascular access device
CPT/HCPCS: 36591; 80053; 82378; 85025

== ENCOUNTER 2020-02-08 04:23 | Outpatient (RCR) | payer BC, SELFPAY ==
[2020-01-25] MEDS: Normal Saline Flush 10 ML SYR IVP (10:07)
[2020-01-25 10:21] LABS: Abs Immature Grans 0.01 10^3/uL (0.0-0.06); Absolute Basophil Count 0.01 10^3/uL (0.0-0.2); Absolute Eosinophil Count 0.04 10^3/uL (0.0-0.7); Absolute Lymphocyte Count 0.59 10^3/uL (1.2-3.4); Absolute Monocyte Count 0.38 10^3/uL (0.1-0.8); Absolute Neutrophil Count 1.88 10^3/uL (1.2-6.7); Basophils % 0.3; Eosinophils % 1.4; HGB 13.9 g/dL (11.2-15.7); Immature Grans % 0.3; Lymphocytes % 20.3; MCH 31.5 pg (27.0-33.0); MCHC 32.3 % (32.0-36.0); MCV 97.5 fL (80-95); MPV 10.2 fL (8.0-11.0); Monocytes % 13.1; Neutrophils % 64.6; Nucleated RBC 0 %; Platelet Count 202 10^3/uL (130-400); RBC 4.41 10^6/uL (3.93-5.22); RDW 15.8 % (11.7-14.6); WBC 2.91 10^3/uL (4.4-10.8)
[2020-01-25 10:31] LABS: ALT 18 U/L (14-59); AST 15 U/L (15-37); Albumin 3.6 g/dL (3.4-5.0); Alkaline Phosphatase 92 U/L (46-116); Anion Gap 7.5 mmol/L (3-11); BUN 11 mg/dL (7-18); Bilirubin, Total 0.9 mg/dL (0.2-1.0); CO2 27.5 mmol/L (21.0-32.0); CREATININE 0.93 mg/dL (0.55-1.02); Calcium 9.5 mg/dL (8.5-10.1); Chloride 105 mmol/L (98-107); Glucose 99 mg/dL (74-106); Potassium 4.1 mmol/L (3.5-5.1); Sodium 140 mmol/L (136-145); Total Protein 7.5 g/dL (6.4-8.2)
[2020-01-25 18:56] LABS: CEA 43.5 ng/mL (See Note)
[2020-02-08] MEDS: Normal Saline Flush 10 ML SYR IVP (09:30)
[2020-02-08 09:49] LABS: Abs Immature Grans 0.01 10^3/uL (0.0-0.06); Absolute Basophil Count 0.02 10^3/uL (0.0-0.2); Absolute Eosinophil Count 0.04 10^3/uL (0.0-0.7); Absolute Lymphocyte Count 0.65 10^3/uL (1.2-3.4); Absolute Monocyte Count 0.37 10^3/uL (0.1-0.8); Basophils % 0.6; Eosinophils % 1.1; HCT 42.4 % (36.0-46.0); HGB 13.8 g/dL (11.2-15.7); Immature Grans % 0.3; Lymphocytes % 18.6; MCH 31.4 pg (27.0-33.0); MCHC 32.5 % (32.0-36.0); MCV 96.6 fL (80-95); MPV 9.8 fL (8.0-11.0); Monocytes % 10.6; Neutrophils % 68.8; Nucleated RBC 0 %; Platelet Count 155 10^3/uL (130-400); RBC 4.39 10^6/uL (3.93-5.22); RDW 15.6 % (11.7-14.6); RDW-SD 55.7 fL; WBC 3.49 10^3/uL (4.4-10.8)
[2020-02-08 10:01] LABS: ALT 21 U/L (14-59); AST 15 U/L (15-37); Albumin 3.7 g/dL (3.4-5.0); Alkaline Phosphatase 87 U/L (46-116); Anion Gap 9.8 mmol/L (3-11); BUN 18 mg/dL (7-18); CO2 26.2 mmol/L (21.0-32.0); CREATININE 0.89 mg/dL (0.55-1.02); Calcium 9.4 mg/dL (8.5-10.1); Chloride 102 mmol/L (98-107); Glucose 114 mg/dL (74-106); Potassium 4.2 mmol/L (3.5-5.1); Sodium 138 mmol/L (136-145); Total Protein 7.5 g/dL (6.4-8.2)
[2020-02-08 18:37] LABS: CEA 50.5 ng/mL (See Note)
== END 2020-02-21 23:59 | disposition home or self-care (01) ==
LOC: INF 04:23
PROVIDERS: PCP Hospitalist; Visit Provider Nurse Practitioner Adult Health
DX: C20 Malignant neoplasm of rectum (principal); C79.89 Secondary malignant neoplasm of other specified sites; Z45.2 Encounter for adjustment and management of vascular access device
CPT/HCPCS: 36591; 80053; 82378; 85025

== ENCOUNTER 2020-03-21 04:37 | Outpatient (RCR) | payer BC, SELFPAY ==
--- OUTSIDE RECORDS SUMMARY | 2020-02-29 07:55 | XMS_ITS ---
:1965 Author Care Team Providers Name Role Phone SERENA PATRICK, Primary Care Provider Unavailable Allergies Code Code System Name Reaction Severity Status Onset 723 RxNorm Amoxicillin ? ? Active ? Insect Venom ? ? Active ? 605356 RxNorm [place] ? ? Active ? Medications Name Status Start Date Stop Date ? ? cephalexin 500 mg capsule Completed ? 2017 Take 1 capsule twice a day by oral route. ciprofloxacin 500 mg tablet Completed ? 03/2018 Claritin 10 mg tablet Completed ? 07/19/2017 Take 1 tablet every day by oral route. enoxaparin 40 mg/0.4 mL Completed ? 08/23/19 19 subcutaneous syringe ferrous gluconate 324 mg (37.5 mg iron) tablet Completed ? 08/22/2018 Take 1 tablet twice a day by oral route. IBU 600 mg tablet Completed ? 08/22/2018 losartan 25 mg tablet Active ? Not availa ble metronidazole 500 mg tablet Completed ? 03/2018 Miralax 17 gram/dose oral powder Completed 05/01/2016 07/15/2016 neomycin 500 mg tablet Completed ? 9 Neulasta 6 mg/0.6 mL subcutaneous syringe Completed ? 07/19/2017 Inject 1 mL by subcutaneous route. ondansetron 8 mg disintegrating Completed ? 08/22/2018 tablet oxycodone 5 mg tablet Completed ? 07/19/2017 prochlorperazine maleate 10 mg Active ? N ot available tablet prochlorperazine maleate 5 mg tablet Completed ? 07/19/2017 Take 1 tablet every 6 hours by oral route. Senna Lax Completed ? 08/22/2018 2 in AM and 2 in PM tramadol 50 mg tablet Completed ? 08/22/2018 Tylenol 325 mg tablet Completed ? 08/22/2018 Take 1 tablet by oral route. Problems Name Status Onset Date Source ? Malignant Tumor of Rectum Active ? Histor y Administration of Diphtheria, Pertussis, and Active ? History Tetanus Vaccine Adult Health Examination Unknown ? History Hemorrhage of Rectum and Anus Active ? Hi story Procedures Date Name Performed by ? 05/04/2016 Colonoscopy Information not avai lable Notes: rectal mass Notes: port placement placed 201 8 Results Lab Results Date Name Specimen Result Interpretation Description Value Range Status Address ? 02/04/2020 COVID-19 RNA SWAB ? 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 ? SWAB ? Performing the broad ? Final No rth Lab institute [facility] L ab (Internal) : [address] 07/13/2018 CBC W/ Auto Diff BLD - Wbc 5.7 5.0-10.0 F inal [place] 10*3/uL 10*3/uL [facility] L ab (Internal) : [address] ? ? BLD Low Rbc 3.90 4.10-5.30 Final [place] 10*6/uL 10*6/uL [facility] L ab (Internal) : [address] ? ? BLD Low Hgb 9.5 g/dL 12.0-16.0 Final [place] g/dL [facility] L ab (Internal) : [address] ? ? BLD Low Hct 31.3 % 37.0-47.0 Final [facility] (Internal) : [address] ? ? BLD - Mcv 80.3 fL 80.0-96.0 Final [facility] L ab (Internal) : [address] ? ? BLD Low Mch 24.4 pg 26.0-32.0 Final [facility] L ab (Internal) : [address] t ? ? BLD Low Mchc 30.4 g/dL 31.0-35.0 Final Nort h g/dL [facility] L ab (Internal) : [address] ? ? BLD High Rdw 14.7 % 11.5-14.5 Final [facility] (Internal) : [address] ? ? BLD - Plt 254 130-450 Final [place] 10*3/uL 10*3/uL [facility] L ab (Internal) : [address] 07/13/2018 CMP, Serum or S High g/r 136 mg/dL 74-106 Fin al [place] Plasma mg/dL [facility] ([facility] : [address] t ? ? S - Bun 11 mg/dL 7-17 Final [place] mg/dL [facility] (Internal) : [address] ? ? S - Crea 0.60 mg/dL 0.52-1.04 Final [facility] mg/dL [facility] (Internal) : [address] ? ? S - Ca 9.4 mg/dL 8.4-10.2 Final [place] mg/dL [facility] (Internal) : [address] ? ? S - Na 138 mmol/L 137-145 Final [place] mmol/L [facility] (Internal) : [address] ? ? S Low K 3.4 mmol/L 3.5-5.1 Final [place] mmol/L [facility] (Internal) : [address] ? ? S - Cl 100 mmol/L 98-107 Final [place] mmol/L [facility] (Internal) : [address] ? ? S - Tco2 30.0 22.0-30.0 Final [place] mmol/L mmol/L [facility] (Internal) : [address] ? ? S - Tp 7.7 g/dL 6.3-8.2 Final [place] g/dL [facility] (Internal) : [address] t ? ? S - Alb 4.0 g/dL 3.5-5.0 Final [place] g/dL [facility] (Internal) : [address] ? ? S - Tbil 0.4 mg/dL 0.2-1.3 Final [place] mg/dL [facility] (Internal) : [address] ? ? S - Alp 86 U/L 50-136 Final [place] U/L [facility] (Internal) : [address] ? ? S - Alt (Sgpt) 11 U/L 9-52 U/L Final [facility] (Internal) : [address] ? ? S - Ast (Sgot) 22 U/L 14-36 U/L Final No rth [facility] L ab (Internal) : [address] 07/13/2018 Lipase, Serum or S - Lip 71 U/L 23-300 Fin [facility] Plasma U/L [facility] L ab (Internal) : [address] 07/13/2018 Differential, BLD High Polys 81 % 40-75 % Final [facility]Internal[facility] : [address] ? ? BLD - Bands 0 % 0-5 % Final [facility] ab (Internal) : [address] ? ? BLD Low Lymphs 11 % 20-50 % Final [facility] ab (Internal) : [address] ? ? BLD - Roane 7 % 2-10 % Final [facility] ab (Internal) : [address] ? ? BLD - Eos 1 % 0-6 % Final [facility] ab (Internal) : [address] ? ? BLD - Baso 0 % 0-1 % Final [facility] ab (Internal) : [address] ? ? BLD - Atyp Lymph 0 % ? Final [facility] ab (Internal) : [address] ? ? BLD - Plts, Est. adequate adequate Final [facility] L ab (Internal) : [address] ? ? BLD ABNO RBC abnormal normal Final [facility] L ab (Internal) : [address] ? ? BLD - Hypo occasional ? Final [facility] ab (Internal) : [address] 07/13/2018 Neutrophil BLD - Anc-manual 4.62 ? Hilda [place] Count, Absolute 10*3/uL [facility] (Anc) Blood Hosp ital Lab (Internal) : [address] 03/24/2018 CBC W/ Auto Diff BLD - Wbc 5.9 5.0-10.0 F [place] 10*3/uL 10*3/uL [facility] (Internal) : [address] ? ? BLD - Rbc 4.10 4.10-5.30 Final [place] 10*6/uL 10*6/uL [facility] L ab (Internal) : [address] ? ? BLD Low Hgb 11.5 g/dL 12.0-16.0 Final Nort h g/dL [facility] L ab (Internal) : [address] ? ? BLD Low Hct 36.3 % 37.0-47.0 Final [facility] L ab (Internal) : [address] ? ? BLD - Mcv 88.5 fL 80.0-96.0 Final [facility] L ab (Internal) : [address] ? ? BLD - Mch 28.0 pg 26.0-32.0 Final [facility] L ab (Internal) : [address] ? ? BLD - Mchc 31.7 g/dL 31.0-35.0 Final Nort h g/dL [facility] L ab (Internal) : [address] ? ? BLD High Rdw 17.1 % 11.5-14.5 Final [facility] (Internal) : [address] ? ? BLD Low Plt 76 10*3/uL 130-450 Final [place] 10*3/uL [facility] L ab (Internal) : [address] 03/24/2018 Urinalysis, UR - UA-color yellow pale Final [place] Dipstick, Reflex yellow [facility] L ab (Internal) : [address] ? ? UR ABNO UA-appear hazy clear Final [facility] L ab (Internal) : [address] ? ? UR - UA-spec >=1.030 1.003-1.0 Final Nort h Grav 35 [facility] L ab (Internal) : [address] ? ? UR - UA-pH 6.0 [pH] 4.6-8.0 Final [place] [pH] [facility] L ab (Internal) : [address] ? ? UR ABNO UA-leuk trace negative Final [place] AL Est [facility] L ab (Internal) : [address] ? ? UR - UA-nitrite negative negative Final N orth [facility] L ab (Internal) : [address] ? ? UR ABNO UA-prot 1+ negative Final [facility] L ab (Internal) : [address] ? ? UR - UA-gluc negative negative Final Nort [facility] L ab (Internal) : [address] t ? ? UR ABNO UA-ketone trace negative Final Nort [facility] L ab (Internal) : [address] ? ? UR ABNO UA-urobil positive normal Final Nort [facility] L ab (Internal) : [address] t ? ? UR - UA-bili negative negative Final [facility] ([facility]) : [address] t ? ? UR ABNO UA-blood moderate negative Final Nor [facility] L ab (Internal) : [address] 03/24/2018 CMP, Serum or S High g/r 134 mg/dL 74-106 Fin al [place] Plasma mg/dL [facility] L ab (Internal) : [address] ? ? S - Bun 13 mg/dL 7-17 Final [place] mg/dL [facility] L ab (Internal) : [address] ? ? S - Crea 0.70 mg/dL 0.52-1.04 Final [facility] th mg/dL [facility] L ab (Internal) : [address] ? ? S - Ca 8.6 mg/dL 8.4-10.2 Final [place] mg/dL [facility] L ab (Internal) : [address] ? ? S - Na 137 mmol/L 137-145 Final [place] mmol/L [facility] ab (Internal) : [address] ? ? S - K 4.0 mmol/L 3.5-5.1 Final [place] mmol/L [facility] L ab (Internal) : [address] t ? ? S - Cl 100 mmol/L 98-107 Final [place] mmol/L [facility] L ab (Internal) : [address] ? ? S - Tco2 28.0 22.0-30.0 Final [place] mmol/L mmol/L [facility] L ab (Internal) : [address] ? ? S - Tp 6.5 g/dL 6.3-8.2 Final [place] g/dL [facility] L ab (Internal) : [address] ? ? S - Alb 3.8 g/dL 3.5-5.0 Final [place] g/dL [facility] L ab (Internal) : [address] ? ? S High Tbil 1.4 mg/dL 0.2-1.3 Final [place] mg/dL [facility] L ab (Internal) : [address] ? ? S High Alp 142 U/L 50-136 Final [place] U/L [facility] L ab (Internal) : [address] ? ? S - Alt (Sgpt) 27 U/L 9-52 U/L Final [facility] L ab (Internal) : [address] ? ? S High Ast (Sgot) 41 U/L 14-36 U/L Final No rth [facility] L ab (Internal) : [address] 03/24/2018 Lipase, Serum or S - Lip 37 U/L 23-300 Fin al [place] Plasma U/L [facility] L ab (Internal) : [address] 03/24/2018 Differential, BLD High Polys 86 % 40-75 % Final [facility], Blood Cou [facility] L ab (Internal) : [address] ? ? BLD - Bands 0 % 0-5 % Final [facility] L ab (Internal) : [address] ? ? BLD Low Lymphs 3 % 20-50 % Final [facility] L ab (Internal) : [address] ? ? BLD - Roane 10 % 2-10 % Final [facility] L ab (Internal) : [address] ? ? BLD - Eos 0 % 0-6 % Final [facility] L ab (Internal) : [address] ? ? BLD - Baso 1 % 0-1 % Final [facility] ab (Internal) : [address] ? ? BLD - Atyp Lymph 0 % ? Final [facility] (Internal) : [address] t ? ? BLD ABNO Plts, Est. low adequate Final Nor th [facility] ab (Internal) : [address] t ? ? BLD ABNO RBC abnormal normal Final [facility] ab (Internal) : [address] t ? ? BLD - Aniso small ? Final [facility] ab (Internal) : [address] t 03/24/2018 Neutrophil BLD - Anc-manual 5.08 ? Hilda jun [place] Count, Absolute 10*3/uL [facility] (Anc), Blood Hosp ital Lab (Internal) : [address] 03/24/2018 Urinalysis, UR ABNO UA-WBC 10-25 0-3 [hpf] [facility] jun [place] Microscopic RMAL [hpf] Count [facility] ab (Internal) : [address] ? ? UR ABNO UA-RBC 3-5 [hpf] 0-2 [hpf] Final Nor th [facility] ab (Internal) : [address] ? ? UR ABNO UA-bacteri few [hpf] none seen Final [place] RMAL a [hpf] [facility] (Internal) : [address] ? ? UR - UA-epithel rare [hpf] none seen Final [place] ial [hpf] [facility] ab (Internal) : [address] ? ? UR ABNO UA-mucus moderate none seen Final No rth RMAL [hpf] [hpf] [facility] (Internal) : [address] t 03/24/2018 Culture ([place] UR - Final microbiolo ? Final [place] Count), Urine gy results [facility] (Internal) : [address] 09/29/2016 Venipuncture BLD ? Venpn* ? ? Final [facility] ab (Internal) : [address] 09/29/2016 RBC Morphology, BLD ? Aniso small ? Hilda l [facility] L ab (Internal) : [address] t 09/29/2016 CBC W/ Auto Diff BLD Low Wbc 3.8 5.0-10.0 F inal [place] 10*3/uL 10*3/uL [facility] L ab (Internal) : [address] t ? ? BLD ? Rbc 4.49 4.10-5.30 Final [place] 10*6/uL 10*6/uL [facility] L ab (Internal) : [address] ? ? BLD ? Hgb 13.4 g/dL 12.0-16.0 Final Nort h g/dL [facility] L ab (Internal) : [address] t ? ? BLD ? Hct 40.2 % 37.0-47.0 Final [facility] (Internal) : [address] t ? ? BLD ? Mcv 89.5 fL 80.0-96.0 Final [facility] L ab (Internal) : [address] ? ? BLD ? Mch 29.8 pg 26.0-32.0 Final [facility] L ab (Internal) : [address] ? ? BLD ? Mchc 33.3 g/dL 31.0-35.0 Final Nort h g/dL [facility] L ab (Internal) : [address] t ? ? BLD High Rdw 17.6 % 11.5-14.5 Final [facility] (Internal) : [address] ? ? BLD ? Plt 217 130-450 Final [place] 10*3/uL 10*3/uL [facility] L ab (Internal) : [address] ? ? BLD ? Anc 2.89 ? Final [place] 10*3/uL [facility] L ab (Internal) : [address] t ? ? BLD High Neutro 76.2 % 40.0-75.0 Final [facility] (Internal) : [address] ? ? BLD Low Lymph 13.5 % 20.0-50.0 Final [facility] (Internal) : [address] ? ? BLD ? Roane 7.9 % 2.0-10.0 Final [facility] (Internal) : [address] ? ? BLD ? Eos 1.6 % 1.0-6.0 % Final [facility] L ab (Internal) : [address] ? ? BLD ? Baso 0.5 % 0.0-1.0 % Final [facility] L ab (Internal) : [address] ? ? BLD ? Ig 0.3 % 0.0-0.9 % Final [facility] L ab (Internal) : [address] t 09/29/2016 CMP, Serum or S High g/r 108 mg/dL 74-106 Fin al [place] Plasma mg/dL [facility] (Internal) : [address] t ? ? S ? Bun 12 mg/dL 7-17 Final [place] mg/dL [facility] L ab (Internal) : [address] t ? ? S ? Crea 0.80 mg/dL 0.52-1.04 Final Nor th mg/dL [facility] (Internal) : [address] t ? ? S ? Ca 9.3 mg/dL 8.4-10.2 Final [facility] mg/dL [facility] (Internal) : [address] ? ? S ? Na 139 mmol/L 137-145 Final [place] mmol/L [facility] L ab (Internal) : [address] t ? ? S ? K 3.9 mmol/L 3.5-5.1 Final [facility] mmol/L [facility] (Internal) : [address] ? ? S ? Cl 102 mmol/L 98-107 Final [place] mmol/L [facility] L ab (Internal) : [address] t ? ? S ? Tco2 27.0 22.0-30.0 Final [place] mmol/L mmol/L [facility] (Internal) : [address] ? ? S ? Tp 7.7 g/dL 6.3-8.2 Final [facility] g/dL [facility] (Internal) : [address] t ? ? S ? Alb 4.6 g/dL 3.5-5.0 Final [place] g/dL [facility] L ab (Internal) : [address] t ? ? S ? Tbil 0.9 mg/dL 0.2-1.3 Final [place] mg/dL [facility] L ab (Internal) : [address] t ? ? S ? Alp 57 U/L 50-136 Final [place] U/L [facility] L ab (Internal) : [address] ? ? S ? Alt (Sgpt) 27 U/L 9-52 U/L Final [facility] L ab (Internal) : [address] ? ? S ? Ast (Sgot) 22 U/L 14-36 U/L Final No rth [facility] L ab (Internal) : [address] 09/29/2016 Carcinoembryonic S ? Carcinoemb <0.5 NG/mL ? Final [place] Ag, Quant, Serum ryonic [facility] or [facility] Lab (Internal) : [address] 07/28/2016 Venipuncture BLD ? Venpn* ? ? Final [facility] ab (Internal) : [address] 07/28/2016 Neutrophil BLD ? Anc-manual 3.44 ? Hilda [place] Count, Absolute 10*3/uL [facility] (Anc), Blood Hosp ital Lab (Internal) : [address] 07/28/2016 Differential, BLD ? Polys 69 % 40-75 % Final [facility] (Internal) : [address] ? ? BLD ? Bands 0 % 0-5 % Final [facility] L ab (Internal) : [address] ? ? BLD Low Lymphs 5 % 20-50 % Final [facility] ab (Internal) : [address] ? ? BLD High Roane 11 % 2-10 % Final [facility] L ab (Internal) : [address] ? ? BLD High Eos 15 % 0-6 % Final [facility] ab (Internal) : [address] t ? ? BLD ? Baso 0 % 0-1 % Final [facility] L ab (Internal) : [address] ? ? BLD ? Atyp Lymph 0 % ? Final [facility] L ab (Internal) : [address] ? ? BLD ? Plts, Est. adequate adequate Final [facility] L ab (Internal) : [address] ? ? BLD ABNO RBC abnormal normal Final [facility] L ab (Internal) : [address] ? ? BLD ? Aniso small ? Final [facility] L ab (Internal) : [address] 07/28/2016 CMP, Serum or S High g/r 107 mg/dL 74-106 Fin al [place] Plasma mg/dL [facility] L ab (Internal) : [address] t ? ? S ? Bun 10 mg/dL 7-17 Final [place] mg/dL [facility] L ab (Internal) : [address] ? ? S ? Crea 0.60 mg/dL 0.52-1.04 Final Nor th mg/dL [facility] L ab (Internal) : [address] t ? ? S ? Ca 8.9 mg/dL 8.4-10.2 Final [place] mg/dL [facility] L ab (Internal) : [address] t ? ? S ? Na 140 mmol/L 137-145 Final [place] mmol/L [facility] L ab (Internal) : [address] ? ? S Low K 3.1 mmol/L 3.5-5.1 Final [place] mmol/L [facility] L ab (Internal) : [address] t ? ? S ? Cl 107 mmol/L 98-107 Final [place] mmol/L [facility] L ab (Internal) : [address] ? ? S ? Tco2 25.0 22.0-30.0 Final [place] mmol/L mmol/L [facility] L ab (Internal) : [address] t ? ? S ? Tp 6.6 g/dL 6.3-8.2 Final [place] g/dL [facility] (Internal) : [address] t ? ? S ? Alb 3.9 g/dL 3.5-5.0 Final [place] g/dL [facility] L ab (Internal) : [address] ? ? S ? Tbil 0.7 mg/dL 0.2-1.3 Final [place] mg/dL [facility] L ab (Internal) : [address] ? ? S ? Alp 56 U/L 50-136 Final [place] U/L [facility] L ab (Internal) : [address] ? ? S ? Alt (Sgpt) 49 U/L 9-52 U/L Final Nor th [facility] L ab (Internal) : [address] ? ? S High Ast (Sgot) 37 U/L 14-36 U/L Final No rth [facility] L ab (Internal) : [address] t 07/28/2016 CBC W/ Auto Diff BLD ? Wbc 5.0 5.0-10.0 F inal [place] 10*3/uL 10*3/uL [facility] L ab (Internal) : [address] ? ? BLD Low Rbc 4.00 4.10-5.30 Final [place] 10*6/uL 10*6/uL [facility] L ab (Internal) : [address] ? ? BLD Low Hgb 11.8 g/dL 12.0-16.0 Final Nort h g/dL [facility] L ab (Internal) : [address] ? ? BLD Low Hct 34.2 % 37.0-47.0 Final [facility] Hospital L ab (Internal) : [address] ? ? BLD ? Mcv 85.5 fL 80.0-96.0 Final [facility] Hospital L ab (Internal) : [address] ? ? BLD ? Mch 29.5 pg 26.0-32.0 Final [place] pg [facility] L ab (Internal) : [address] ? ? BLD ? Mchc 34.5 g/dL 31.0-35.0 Final Nort h g/dL [facility] L ab (Internal) : [address] t ? ? BLD High Rdw 18.8 % 11.5-14.5 Final [place] % [facility] L ab (Internal) : [address] ? ? BLD ? Plt 223 130-450 Final [place] 10*3/uL 10*3/uL [facility] L ab (Internal) : [address] 07/21/2016 Venipuncture BLD ? Venpn* ? ? Final [facility] L ab (Internal) : [address] 07/21/2016 CMP, Serum or S ? g/r 105 mg/dL 74-106 Fin al [place] Plasma mg/dL [facility] (Internal) : [address] ? ? S ? Bun 15 mg/dL 7-17 Final [place] mg/dL [facility] L ab (Internal) : [address] ? ? S ? Crea 0.70 mg/dL 0.52-1.04 Final Nor th mg/dL [facility] L ab (Internal) : [address] t ? ? S ? Ca 9.1 mg/dL 8.4-10.2 Final [place] mg/dL [facility] L ab (Internal) : [address] ? ? S ? Na 142 mmol/L 137-145 Final [place] mmol/L [facility] L ab (Internal) : [address] ? ? S Low K 3.3 mmol/L 3.5-5.1 Final [place] mmol/L [facility] L ab (Internal) : [address] t ? ? S ? Cl 105 mmol/L 98-107 Final [place] mmol/L [facility] L ab (Internal) : [address] ? ? S ? Tco2 27.0 22.0-30.0 Final [place] mmol/L mmol/L [facility] (Internal) : [address] ? ? S ? Tp 7.1 g/dL 6.3-8.2 Final [place] g/dL [facility] L ab (Internal) : [address] ? ? S ? Alb 4.2 g/dL 3.5-5.0 Final [place] g/dL [facility] (Internal) : [address] ? ? S ? Tbil 0.5 mg/dL 0.2-1.3 Final [place] mg/dL [facility] L ab (Internal) : [address] ? ? S ? Alp 57 U/L 50-136 Final [place] U/L [facility] L ab (Internal) : [address] ? ? S ? Alt (Sgpt) 40 U/L 9-52 U/L Final [facility] L ab (Internal) : [address] ? ? S ? Ast (Sgot) 28 U/L 14-36 U/L Final No rth [facility] L ab (Internal) : [address] 07/21/2016 Neutrophil BLD ? Anc-manual 3.78 ? Hilda [facility] Count, Absolute 10*3/uL [facility] (Anc) Blood Hosp ital Lab (Internal) : [address] 07/21/2016 Differential, BLD ? Polys 61 % 40-75 % Final [facility] (Internal) : [address] ? ? BLD ? Bands 0 % 0-5 % Final [facility] L ab (Internal) : [address] ? ? BLD Low Lymphs 5 % 20-50 % Final [facility] ab (Internal) : [address] ? ? BLD ? Roane 3 % 2-10 % Final [facility] [facility] [address] ? ? BLD High Eos 30 % 0-6 % Final [facility] (Internal) : [address] ? ? BLD ? Baso 1 % 0-1 % Final [facility] (Internal) : [address] t ? ? BLD ? Atyp Lymph 0 % ? Final [facility] (Internal) : [address] ? ? BLD ? Plts, Est. adequate adequate Final [facility] L ab (Internal) : [address] t ? ? BLD ABNO RBC abnormal normal Final [facility] L ab (Internal) : [address] ? ? BLD ? Aniso moderate ? Final [facility] (Internal) : [address] t ? ? BLD ? Oval occasional ? Final [facility] (Internal) : [address] 07/21/2016 CBC W/ Auto Diff BLD ? Wbc 6.2 5.0-10.0 F inal [place] 10*3/uL 10*3/uL [facility] L ab (Internal) : [address] t ? ? BLD ? Rbc 4.34 4.10-5.30 Final [place] 10*6/uL 10*6/uL [facility] (Internal) : [address] t ? ? BLD ? Hgb 12.5 g/dL 12.0-16.0 Final Nort h g/dL [facility] (Internal) : [address] t ? ? BLD Low Hct 36.9 % 37.0-47.0 Final [facility] ([facility]) : [address] t ? ? BLD ? Mcv 85.0 fL 80.0-96.0 Final [facility] L ab (Internal) : [address] t ? ? BLD ? Mch 28.8 pg 26.0-32.0 Final [facility] L ab (Internal) : [address] ? ? BLD ? Mchc 33.9 g/dL 31.0-35.0 Final Nort h g/dL [facility] (Internal) : [address] t ? ? BLD High Rdw 17.1 % 11.5-14.5 Final [facility] (Internal) : [address] t ? ? BLD ? Plt 163 130-450 Final [place] 10*3/uL 10*3/uL [facility] (Internal) : [address] 07/14/2016 Venipuncture BLD ? Venpn* ? ? Final [facility] (Internal) : [address] t 07/14/2016 Neutrophil BLD ? Anc-manual 2.82 ? Hilda jun [place] Count, Absolute 10*3/uL [facility] (Anc), Blood Hosp ital Lab (Internal) : [address] 07/14/2016 Differential, BLD ? Polys 58 % 40-75 % Final [facility] Blood [facility] L ab (Internal) : [address] t ? ? BLD ? Bands 0 % 0-5 % Final [facility] (Internal) : [address] t ? ? BLD Low Lymphs 10 % 20-50 % Final [facility] (Internal) : [address] t ? ? BLD ? Roane 9 % 2-10 % Final [facility] (Internal) : [address] t ? ? BLD High Eos 23 % 0-6 % Final [facility] (Internal) : [address] t ? ? BLD ? Baso 0 % 0-1 % Final [facility] (Internal) : [address] t ? ? BLD ? Atyp Lymph 0 % ? Final [facility] (Internal) : [address] t ? ? BLD ? Plts, Est. adequate adequate Final [facility] L ab (Internal) : [address] t ? ? BLD ABNO RBC abnormal normal Final [facility] ab (Internal) : [address] t ? ? BLD ? Aniso occasional ? Final [facility] (Internal) : [address] 07/14/2016 CMP, Serum or S ? g/r 97 mg/dL 74-106 Hilda l [place] Plasma mg/dL [facility] L ab (Internal) : [address] t ? ? S ? Bun 12 mg/dL 7-17 Final [place] mg/dL [facility] (Internal) : [address] t ? ? S ? Crea 0.70 mg/dL 0.52-1.04 Final [place] mg/dL [facility] L ab (Internal) : [address] t ? ? S ? Ca 8.8 mg/dL 8.4-10.2 Final [place] mg/dL [facility] L ab (Internal) : [address] t ? ? S ? Na 141 mmol/L 137-145 Final [place] mmol/L [facility] (Internal) : [address] t ? ? S Low K 3.4 mmol/L 3.5-5.1 Final [place] mmol/L [facility] (Internal) : [address] t ? ? S ? Cl 104 mmol/L 98-107 Final [place] mmol/L [facility] (Internal) : [address] t ? ? S ? Tco2 27.0 22.0-30.0 Final [place] mmol/L mmol/L [facility] ([facility] : [address] t ? ? S ? Tp 6.7 g/dL 6.3-8.2 Final [place] g/dL [facility] (Internal) : [address] t ? ? S ? Alb 4.0 g/dL 3.5-5.0 Final [place] g/dL [facility] (Internal) : [address] t ? ? S ? Tbil 0.5 mg/dL 0.2-1.3 Final [place] mg/dL [facility] (Internal) : [address] t ? ? S ? Alp 54 U/L 50-136 Final [place] U/L [facility] (Internal) : [address] t ? ? S ? Alt (Sgpt) 33 U/L 9-52 U/L Final [facility] ([facility] : [address] t ? ? S ? Ast (Sgot) 22 U/L 14-36 U/L Final [facility] ([facility]) : [address] t 07/14/2016 CBC W/ Auto Diff BLD Low Wbc 4.9 5.0-10.0 F inal [place] 10*3/uL 10*3/uL [facility] ([facility]) : [address] t ? ? BLD Low Rbc 4.06 4.10-5.30 Final [place] 10*6/uL 10*6/uL [facility] (Internal) : [address] t ? ? BLD Low Hgb 11.6 g/dL 12.0-16.0 Final Nort h g/dL [facility] L ab (Internal) : [address] t ? ? BLD Low Hct 34.9 % 37.0-47.0 Final [facility] (Internal) : [address] ? ? BLD ? Mcv 86.0 fL 80.0-96.0 Final [facility] L ab (Internal) : [address] ? ? BLD ? Mch 28.6 pg 26.0-32.0 Final [facility] L ab (Internal) : [address] t ? ? BLD ? Mchc 33.2 g/dL 31.0-35.0 Final Nort h g/dL [facility] L ab (Internal) : [address] ? ? BLD High Rdw 15.2 % 11.5-14.5 Final [facility] (Internal) : [address] ? ? BLD ? Plt 162 130-450 Final [place] 10*3/uL 10*3/uL [facility] ab (Internal) : [address] 07/07/2016 Venipuncture BLD ? Venpn* ? ? Final [facility] ab (Internal) : [address] 07/07/2016 Neutrophil BLD ? Anc-manual 2.72 ? Hilda [facility] Count, Absolute 10*3/uL [facility] (Anc) Blood Hosp ital Lab (Internal) : [address] 07/07/2016 Differential, BLD ? Polys 68 % 40-75 % Final [facility] (Internal[facility] : [address] ? ? BLD ? Bands 0 % 0-5 % Final [facility] (Internal) : [address] ? ? BLD Low Lymphs 14 % 20-50 % Final [facility] (Internal) : [address] ? ? BLD ? Roane 6 % 2-10 % Final [facility] ab (Internal) : [address] ? ? BLD High Eos 12 % 0-6 % Final [facility] ab (Internal) : [address] t ? ? BLD ? Baso 0 % 0-1 % Final [facility] L ab (Internal) : [address] t ? ? BLD ? Atyp Lymph 0 % ? Final [facility] ab (Internal) : [address] t ? ? BLD ? Plts, Est. adequate adequate Final N orth [facility] L ab (Internal) : [address] t ? ? BLD ? RBC normal normal Final [facility] L ab (Internal) : [address] t 07/07/2016 CMP, Serum or S High g/r 125 mg/dL 74-106 Fin al [place] Plasma mg/dL [facility] L ab (Internal) : [address] t ? ? S ? Bun 10 mg/dL 7-17 Final [place] mg/dL [facility] L ab (Internal) : [address] t ? ? S ? Crea 0.70 mg/dL 0.52-1.04 Final [place] mg/dL [facility] L ab (Internal) : [address] t ? ? S ? Ca 8.9 mg/dL 8.4-10.2 Final [place] mg/dL [facility] L ab (Internal) : [address] t ? ? S ? Na 140 mmol/L 137-145 Final [place] mmol/L [facility] L ab (Internal) : [address] t ? ? S ? K 3.6 mmol/L 3.5-5.1 Final [place] mmol/L [facility] ab (Internal) : [address] t ? ? S ? Cl 101 mmol/L 98-107 Final [place] mmol/L [facility] L ab (Internal) : [address] ? ? S ? Tco2 27.0 22.0-30.0 Final [place] mmol/L mmol/L [facility] L ab (Internal) : [address] t ? ? S ? Tp 7.0 g/dL 6.3-8.2 Final [place] g/dL [facility] (Internal) : [address] t ? ? S ? Alb 4.2 g/dL 3.5-5.0 Final [place] g/dL [facility] ab (Internal) : [address] t ? ? S ? Tbil 0.4 mg/dL 0.2-1.3 Final [place] mg/dL [facility] L ab (Internal) : [address] t ? ? S ? Alp 60 U/L 50-136 Final [place] U/L [facility] (Internal) : [address] t ? ? S ? Alt (Sgpt) 27 U/L 9-52 U/L Final [facility] th [facility] L ab (Internal) : [address] t ? ? S ? Ast (Sgot) 28 U/L 14-36 U/L Final No rth [facility] L ab (Internal) : [address] t 07/07/2016 CBC W/ Auto Diff BLD Low Wbc 4.0 5.0-10.0 F inal [place] 10*3/uL 10*3/uL [facility] L ab (Internal) : [address] t ? ? BLD Low Rbc 4.09 4.10-5.30 Final [place] 10*6/uL 10*6/uL [facility] ab (Internal) : [address] t ? ? BLD Low Hgb 11.7 g/dL 12.0-16.0 [facility] : [address] t ? ? BLD Low Hct 35.0 % 37.0-47.0 Final [facility] (Internal) : [address] t ? ? BLD ? Mcv 85.6 fL 80.0-96.0 Final [facility] L ab (Internal) : [address] t ? ? BLD ? Mch 28.6 pg 26.0-32.0 Final [place] pg [facility] ab (Internal) : [address] t ? ? BLD ? Mchc 33.4 g/dL 31.0-35.0 [facility] (Internal[facility] : [address] t ? ? BLD ? Rdw 13.4 % 11.5-14.5 Final [facility] L ab (Internal) : [address] t ? ? BLD ? Plt 216 130-450 Final [place] 10*3/uL 10*3/uL [facility] L ab (Internal) : [address] 06/30/2016 Venipuncture BLD ? Venpn* ? ? Final [facility] L ab (Internal) : [address] 06/30/2016 CMP, Serum or S ? g/r 92 mg/dL 74-106 Hilda l [place] Plasma mg/dL [facility] (Internal) : [address] t ? ? S ? Bun 11 mg/dL 7-17 Final [place] mg/dL [facility] ab (Internal) : [address] t ? ? S ? Crea 0.70 mg/dL 0.52-1.04 Final [place] mg/dL [facility] ab (Internal) : [address] t ? ? S ? Ca 9.0 mg/dL 8.4-10.2 Final [place] mg/dL [facility] (Internal) : [address] t ? ? S ? Na 142 mmol/L 137-145 Final [place] mmol/L [facility] (Internal) : [address] t ? ? S ? K 3.6 mmol/L 3.5-5.1 Final [place] mmol/L [facility] (Internal) : [address] t ? ? S ? Cl 100 mmol/L 98-107 Final [place] mmol/L [facility] (Internal) : [address] t ? ? S High Tco2 31.0 22.0-30.0 Final [place] mmol/L mmol/L [facility] (Internal) : [address] t ? ? S ? Tp 7.0 g/dL 6.3-8.2 Final [place] g/dL [facility] (Internal) : [address] t ? ? S ? Alb 3.9 g/dL 3.5-5.0 Final [place] g/dL [facility] (Internal) : [address] t ? ? S ? Tbil 0.5 mg/dL 0.2-1.3 Final [place] mg/dL [facility] ab (Internal) : [address] t ? ? S ? Alp 57 U/L 50-136 Final [place] U/L [facility] (Internal) : [address] ? ? S ? Alt (Sgpt) 23 U/L 9-52 U/L Final Nor th [facility] L ab (Internal) : [address] t ? ? S ? Ast (Sgot) 22 U/L 14-36 U/L Final No rth [facility] ab (Internal) : [address] t 06/30/2016 CBC W/ Auto Diff BLD Low Wbc 4.7 5.0-10.0 F inal [place] 10*3/uL 10*3/uL [facility] (Internal) : [address] t ? ? BLD ? Rbc 4.32 4.10-5.30 Final [place] 10*6/uL 10*6/uL [facility] (Internal) : [address] ? ? BLD Low Hgb 11.9 g/dL 12.0-16.0 Final Nort h g/dL [facility] ab (Internal) : [address] ? ? BLD ? Hct 37.0 % 37.0-47.0 Final [facility] L ab (Internal) : [address] ? ? BLD ? Mcv 85.6 fL 80.0-96.0 Final [facility] L ab (Internal) : [address] ? ? BLD ? Mch 27.5 pg 26.0-32.0 Final [facility] L ab (Internal) : [address] ? ? BLD ? Mchc 32.2 g/dL 31.0-35.0 Final Nort h g/dL [facility] ab (Internal) : [address] ? ? BLD ? Rdw 12.4 % 11.5-14.5 Final [facility] L ab (Internal) : [address] ? ? BLD ? Plt 293 130-450 Final [place] 10*3/uL 10*3/uL [facility] L ab (Internal) : [address] ? ? BLD ? Anc 3.50 ? Final [place] 10*3/uL [facility] L ab (Internal) : [address] ? ? BLD ? Neutro 74.4 % 40.0-75.0 Final [facility] (Internal) : [address] ? ? BLD Low Lymph 14.4 % 20.0-50.0 Final [facility] (Internal) : [address] ? ? BLD ? Roane 6.4 % 2.0-10.0 Final [facility] (Internal) : [address] ? ? BLD ? Eos 4.0 % 1.0-6.0 % Final [facility] L ab (Internal) : [address] ? ? BLD ? Baso 0.4 % 0.0-1.0 % Final [facility] L ab (Internal) : [address] ? ? BLD ? Ig 0.4 % 0.0-0.9 % Final [facility] L ab (Internal) : [address] 06/21/2016 Venipuncture BLD ? Venpn* ? ? Final [facility] L ab (Internal) : [address] 06/21/2016 CBC W/ Auto Diff BLD ? Wbc 6.7 5.0-10.0 F inal [place] 10*3/uL 10*3/uL [facility] L ab (Internal) : [address] t ? ? BLD ? Rbc 4.23 4.10-5.30 [facility] 10*6/uL 10*6/uL [facility] L ab (Internal) : [address] t ? ? BLD Low Hgb 11.8 g/dL 12.0-16.0 Final Nort h g/dL [facility] L ab (Internal) : [address] t ? ? BLD Low Hct 36.4 % 37.0-47.0 Final [facility] (Internal) : [address] t ? ? BLD ? Mcv 86.1 fL 80.0-96.0 Final [facility] L ab (Internal) : [address] ? ? BLD ? Mch 27.9 pg 26.0-32.0 Final [facility] L ab (Internal) : [address] ? ? BLD ? Mchc 32.4 g/dL 31.0-35.0 Final Nort h g/dL [facility] L ab (Internal) : [address] ? ? BLD ? Rdw 12.5 % 11.5-14.5 Final [facility] L ab (Internal) : [address] ? ? BLD ? Plt 294 130-450 Final [place] 10*3/uL 10*3/uL [facility] L ab (Internal) : [address] ? ? BLD ? Anc 4.31 ? Final [place] 10*3/uL [facility] L ab (Internal) : [address] ? ? BLD ? Neutro 64.3 % 40.0-75.0 Final [facility] (Internal) : [address] ? ? BLD ? Lymph 22.4 % 20.0-50.0 Final [facility] (Internal) : [address] ? ? BLD ? Roane 6.6 % 2.0-10.0 Final [facility] (Internal) : [address] ? ? BLD ? Eos 6.0 % 1.0-6.0 % Final [facility] L ab (Internal) : [address] ? ? BLD ? Baso 0.6 % 0.0-1.0 % Final [facility] L ab (Internal) : [address] ? ? BLD ? Ig 0.1 % 0.0-0.9 % Final [facility] L ab (Internal) : [address] t 06/21/2016 CMP, Serum or S ? g/r 92 mg/dL 74-106 Hilda l [place] Plasma mg/dL [facility] L ab (Internal) : [address] ? ? S ? Bun 12 mg/dL 7-17 Final [place] mg/dL [facility] (Internal) : [address] t ? ? S ? Crea 0.70 mg/dL 0.52-1.04 Final [place] mg/dL [facility] (Internal) : [address] t ? ? S ? Ca 8.6 mg/dL 8.4-10.2 Final [place] mg/dL [facility] (Internal) : [address] t ? ? S ? Na 141 mmol/L 137-145 Final [place] mmol/L [facility] (Internal) : [address] t ? ? S ? K 3.7 mmol/L 3.5-5.1 Final [place] mmol/L [facility] (Internal) : [address] t ? ? S ? Cl 100 mmol/L 98-107 Final [place] mmol/L [facility] (Internal) : [address] t ? ? S ? Tco2 29.0 22.0-30.0 Final [place] mmol/L mmol/L [facility] (Internal) : [address] t ? ? S ? Tp 7.2 g/dL 6.3-8.2 Final [place] g/dL [facility] (Internal) : [address] t ? ? S ? Alb 4.1 g/dL 3.5-5.0 Final [place] g/dL [facility] (Internal) : [address] t ? ? S ? Tbil 0.4 mg/dL 0.2-1.3 Final [place] mg/dL [facility] (Internal) : [address] t ? ? S ? Alp 66 U/L 50-136 Final [place] U/L [facility] (Internal) : [address] t ? ? S ? Alt (Sgpt) 30 U/L 9-52 U/L Final [facility] th [facility] L ab (Internal) : [address] ? ? S ? Ast (Sgot) 18 U/L 14-36 U/L Final No rth [facility] L ab (Internal) : [address] t 06/21/2016 Carcinoembryonic S ? Carcinoemb 19.4 NG/mL ? Final [place] Ag, Quant, Serum ryonic [facility] or [facility] (Internal[facility] : [address] 05/13/2016 Venipuncture BLD ? Venpn* ? ? Final [facility] L ab (Internal) : [address] 05/13/2016 Carcinoembryonic S ? Carcinoemb 16.2 NG/mL ? Final [place] Ag, Quant, Serum ryonic [facility] or [facility] Lab (Internal) : [address] 05/04/2016 Pathology Study TISS ? Report results ? Fi nal [facility] L ab (Internal) : [address] 04/29/2016 Venipuncture BLD ? Venpn* ? ? Final [facility] L ab (Internal) : [address] 04/29/2016 CMP, Serum or S ? g/r 104 mg/dL 74-106 Fin al [place] Plasma mg/dL [facility] L ab (Internal) : [address] t ? ? S ? Bun 15 mg/dL 7-17 Final [place] mg/dL [facility] L ab (Internal) : [address] t ? ? S ? Crea 0.70 mg/dL 0.52-1.04 Final [place] mg/dL [facility] L ab (Internal) : [address] t ? ? S ? Ca 9.0 mg/dL 8.4-10.2 Final [place] mg/dL [facility] L ab (Internal) : [address] t ? ? S ? Na 140 mmol/L 137-145 Final [place] mmol/L [facility] L ab (Internal) : [address] ? ? S ? K 3.6 mmol/L 3.5-5.1 Final [place] mmol/L [facility] L ab (Internal) : [address] t ? ? S ? Cl 100 mmol/L 98-107 Final [place] mmol/L [facility] L ab (Internal) : [address] ? ? S ? Tco2 27.0 22.0-30.0 Final [place] mmol/L mmol/L [facility] L ab (Internal) : [address] ? ? S ? Tp 7.6 g/dL 6.3-8.2 Final [place] g/dL [facility] ab (Internal) : [address] ? ? S ? Alb 4.4 g/dL 3.5-5.0 Final [place] g/dL [facility] L ab (Internal) : [address] ? ? S ? Tbil 0.5 mg/dL 0.2-1.3 Final [place] mg/dL [facility] L ab (Internal) : [address] ? ? S ? Alp 78 U/L 50-136 Final [place] U/L [facility] L ab (Internal) : [address] ? ? S ? Alt (Sgpt) 29 U/L 9-52 U/L Final Nor [facility] L ab (Internal) : [address] ? ? S ? Ast (Sgot) 20 U/L 14-36 U/L Final No rth [facility] L ab (Internal) : [address] t 04/29/2016 CBC W/ Auto Diff BLD ? Wbc 7.7 5.0-10.0 F inal [place] 10*3/uL 10*3/uL [facility] (Internal) : [address] t ? ? BLD ? Rbc 4.71 4.10-5.30 Final [place] 10*6/uL 10*6/uL [facility] (Internal) : [address] ? ? BLD ? Hgb 14.0 g/dL 12.0-16.0 Final Nort h g/dL [facility] L ab (Internal) : [address] ? ? BLD ? Hct 41.7 % 37.0-47.0 Final [place] % [facility] ab (Internal) : [address] ? ? BLD ? Mcv 88.5 fL 80.0-96.0 Final [place] fL [facility] (Internal) : [address] ? ? BLD ? Mch 29.7 pg 26.0-32.0 Final [place] pg [facility] L ab (Internal) : [address] ? ? BLD ? Mchc 33.6 g/dL 31.0-35.0 Final Nort h g/dL [facility] L ab (Internal) : [address] [place] ? ? BLD ? Rdw 12.7 % 11.5-14.5 Final [facility] L ab (Internal) : [address] ? ? BLD ? Plt 298 130-450 Final [place] 10*3/uL 10*3/uL [facility] (Internal) : [address] ? ? BLD ? Anc 4.72 ? Final [place] 10*3/uL [facility] (Internal) : [address] ? ? BLD ? Neutro 61.4 % 40.0-75.0 Final [facility] (Internal) : [address] [place] ? ? BLD ? Lymph 24.6 % 20.0-50.0 Final [facility] L ab (Internal) : [address] [place] ? ? BLD ? Roane 7.3 % 2.0-10.0 Final [facility] (Internal) : [address] [place] ? ? BLD ? Eos 5.9 % 1.0-6.0 % Final [facility] L ab (Internal) : [address] [place] ? ? BLD ? Baso 0.5 % 0.0-1.0 % Final [facility] L ab (Internal) : [address] [place] ? ? BLD ? Ig 0.3 % 0.0-0.9 % Final [facility] (Internal) : [address] [place] Past Encounters 08/30/2019 Adult Health Examination Serena Patrick, DO: [address] [place] [address], Ph. 11/21/2018 Administration of Influenza Vaccine; Act inic Keratosis Serena Patrick, DO: [address] [place] [address], Ph. Social History Tobacco Smoking Status Never Smoker Vaccine List Vaccine Type Hep B, adult 1900 rubella 1900 Td (adult), adsorbed 08/15/2007 Tdap 0.5 mL tetanus toxoid, adsorbed 02/22/1996 varicella 1900 Notes: Patient does not get FLu Shots - 08/22/2018 Plan of Care Reminders Provider Appointments None ? ? recorded. Lab None ? ? recorded. Referral None ? ? recorded. Procedures None ? ? recorded. Surgeries None ? ? recorded. Imaging None ? ? recorded. Vitals 08/30/2019 04:00PM AWV 40 Height Weight BMI Blood Pressure 177.8 cm 75.92 kg 24 kg/m2 120/90 mm[Hg] 11/21/2018 04:20PM Acute 20 Height Weight BMI Blood Pressure 180.34 cm 67.59 kg 20.8 kg/m2 110/80 mm[Hg] 08/22/2018 04:00PM CPE 40 Height Weight BMI Blood Pressure 180.34 cm 66.88 kg 20.6 kg/m2 124/86 mm[Hg] 07/19/2017 03:20PM CPE 40 Weight Blood Pressure 73.21 kg 118/88 mm[Hg] 07/15/2016 Height Weight Blood Pressure 180.34 cm 79.61 kg 128/84 mm[Hg] 12/11/2015 Height Weight Blood Pressure 179.71 cm 83.91 kg 132/70 mm[Hg] 06/23/2015 Height Weight Blood Pressure 179.71 cm 89.54 kg 114/70 mm[Hg] 05/28/2014 Height Weight Blood Pressure 179.71 cm 85.41 kg 130/80 mm[Hg] 05/10/2013 Height Weight Blood Pressure 179.71 cm 76.88 kg (1) 124/78 mm[Hg] (2) 130/80 mm[Hg] 05/04/2012 Height Weight Blood Pressure 179.07 cm 74.12 kg 102/70 mm[Hg] 04/14/2011 Height Weight Blood Pressure 180.34 cm 78.83 kg 126/82 mm[Hg] 04/09/2010 Height Weight Blood Pressure 179.71 cm 86.41 kg 120/82 mm[Hg] 02/27/2009 Weight Blood Pressure 83.01 kg 110/72 mm[Hg] 01/23/2009 Height Weight Blood Pressure 180.34 cm 83.91 kg 138/78 mm[Hg] 09/12/2008 Height Weight Blood Pressure 179.07 cm 83.91 kg 112/64 mm[Hg] 08/15/2007 Weight Blood Pressure 83.01 kg 130/70 mm[Hg] 08/12/2006 Height Weight Blood Pressure 179.07 cm 83.91 kg 118/76 mm[Hg] 08/06/2005 Height Weight Blood Pressure 185.42 cm 83.46 kg 120/72 mm[Hg] 08/05/2004 Height Weight Blood Pressure 180.34 cm 78.47 kg 110/68 mm[Hg]
[2020-02-29] MEDS: Normal Saline Flush 10 ML SYR IVP (08:06)
[2020-02-29 08:08] LABS: Abs Immature Grans 0.01 10^3/uL (0.0-0.06); Absolute Basophil Count 0.03 10^3/uL (0.0-0.2); Absolute Eosinophil Count 0.07 10^3/uL (0.0-0.7); Absolute Lymphocyte Count 0.58 10^3/uL (1.2-3.4); Absolute Monocyte Count 0.47 10^3/uL (0.1-0.8); Absolute Neutrophil Count 0.98 10^3/uL (1.2-6.7); Basophils % 1.4; Eosinophils % 3.3; HCT 42.1 % (36.0-46.0); HGB 13.6 g/dL (11.2-15.7); Immature Grans % 0.5; Lymphocytes % 27.1; MCH 31.6 pg (27.0-33.0); MCHC 32.3 % (32.0-36.0); MCV 97.7 fL (80-95); MPV 10.6 fL (8.0-11.0); Neutrophils % 45.7; Nucleated RBC 0 %; Platelet Count 177 10^3/uL (130-400); RBC 4.31 10^6/uL (3.93-5.22); RDW 15.7 % (11.7-14.6); WBC 2.14 10^3/uL (4.4-10.8)
[2020-02-29 08:21] LABS: ALT 28 U/L (14-59); AST 17 U/L (15-37); Albumin 3.6 g/dL (3.4-5.0); Alkaline Phosphatase 78 U/L (46-116); Anion Gap 7.1 mmol/L (3-11); BUN 14 mg/dL (7-18); Bilirubin, Total 0.9 mg/dL (0.2-1.0); CO2 26.9 mmol/L (21.0-32.0); CREATININE 0.94 mg/dL (0.55-1.02); Calcium 9.1 mg/dL (8.5-10.1); Chloride 104 mmol/L (98-107); Glucose 99 mg/dL (74-106); Potassium 4.2 mmol/L (3.5-5.1); Sodium 138 mmol/L (136-145); Total Protein 7.2 g/dL (6.4-8.2)
[2020-02-29 08:24] LABS: Diff Comment Diff Reviewed; RBC Morphology Normal
[2020-02-29 23:14] LABS: CEA 46.9 ng/mL (See Note)
[2020-03-07] MEDS: Normal Saline Flush 10 ML SYR IVP (10:42)
[2020-03-07 11:07] LABS: Abs Immature Grans 0.02 10^3/uL (0.0-0.06); Absolute Basophil Count 0.03 10^3/uL (0.0-0.2); Absolute Eosinophil Count 0.06 10^3/uL (0.0-0.7); Absolute Lymphocyte Count 0.96 10^3/uL (1.2-3.4); Absolute Neutrophil Count 4.35 10^3/uL (1.2-6.7); Basophils % 0.5; HCT 43.8 % (36.0-46.0); HGB 14.4 g/dL (11.2-15.7); Immature Grans % 0.3; Lymphocytes % 15.9; MCH 32.1 pg (27.0-33.0); MCHC 32.9 % (32.0-36.0); MCV 97.8 fL (80-95); MPV 10.2 fL (8.0-11.0); Neutrophils % 72.3; Nucleated RBC 0 %; Platelet Count 199 10^3/uL (130-400); RBC 4.48 10^6/uL (3.93-5.22); RDW 15.4 % (11.7-14.6); RDW-SD 55.8 fL; WBC 6.02 10^3/uL (4.4-10.8)
[2020-03-07 11:19] LABS: ALT 34 U/L (14-59); AST 21 U/L (15-37); Albumin 3.8 g/dL (3.4-5.0); Alkaline Phosphatase 90 U/L (46-116); Anion Gap 11.3 mmol/L (3-11); BUN 17 mg/dL (7-18); Bilirubin, Total 0.8 mg/dL (0.2-1.0); CO2 25.7 mmol/L (21.0-32.0); CREATININE 0.82 mg/dL (0.55-1.02); Chloride 103 mmol/L (98-107); Glucose 94 mg/dL (74-106); Potassium 4.1 mmol/L (3.5-5.1); Sodium 140 mmol/L (136-145); Total Protein 7.8 g/dL (6.4-8.2)
[2020-03-08 00:01] LABS: CEA 44.3 ng/mL (See Note)
[2020-03-21] MEDS: Normal Saline Flush 10 ML SYR IVP (09:08)
[2020-03-21 09:13] LABS: Abs Immature Grans 0.06 10^3/uL (0.0-0.06); Absolute Basophil Count 0.03 10^3/uL (0.0-0.2); Absolute Eosinophil Count 0.04 10^3/uL (0.0-0.7); Absolute Lymphocyte Count 0.81 10^3/uL (1.2-3.4); Absolute Monocyte Count 0.46 10^3/uL (0.1-0.8); Basophils % 0.4; Eosinophils % 0.5; HCT 42.2 % (36.0-46.0); HGB 14.1 g/dL (11.2-15.7); Immature Grans % 0.7; Lymphocytes % 9.5; MCHC 33.4 % (32.0-36.0); MCV 95.9 fL (80-95); MPV 9.7 fL (8.0-11.0); Monocytes % 5.4; Neutrophils % 83.5; Nucleated RBC 0 %; Platelet Count 160 10^3/uL (130-400); RDW 15.2 % (11.7-14.6); RDW-SD 53.8 fL
[2020-03-21 09:49] LABS: ALT 28 U/L (14-59); AST 20 U/L (15-37); Albumin 3.7 g/dL (3.4-5.0); Alkaline Phosphatase 123 U/L (46-116); Anion Gap 7.9 mmol/L (3-11); BUN 13 mg/dL (7-18); Bilirubin, Total 0.6 mg/dL (0.2-1.0); CO2 27.1 mmol/L (21.0-32.0); CREATININE 0.8 mg/dL (0.55-1.02); Calcium 9.4 mg/dL (8.5-10.1); Chloride 102 mmol/L (98-107); Glucose 95 mg/dL (74-106); Potassium 3.9 mmol/L (3.5-5.1); Sodium 137 mmol/L (136-145); Total Protein 7.5 g/dL (6.4-8.2)
[2020-03-21 18:33] LABS: CEA 37.6 ng/mL (See Note)
== END 2020-03-23 23:59 | disposition home or self-care (01) ==
LOC: INF 04:37
PROVIDERS: PCP Hospitalist; Visit Provider Nurse Practitioner Adult Health
DX: C20 Malignant neoplasm of rectum (principal); C79.89 Secondary malignant neoplasm of other specified sites; Z45.2 Encounter for adjustment and management of vascular access device
CPT/HCPCS: 36591; 80053; 82378; 85025

== ENCOUNTER 2020-04-18 04:42 | Outpatient (RCR) | payer BC, SELFPAY ==
[2020-04-04 08:56] LABS: Absolute Basophil Count 0.05 10^3/uL (0.0-0.2); Absolute Eosinophil Count 0.04 10^3/uL (0.0-0.7); Absolute Lymphocyte Count 0.86 10^3/uL (1.2-3.4); Absolute Monocyte Count 0.54 10^3/uL (0.1-0.8); Absolute Neutrophil Count 6.96 10^3/uL (1.2-6.7); Basophils % 0.6; Eosinophils % 0.5; HCT 42.8 % (36.0-46.0); HGB 14.1 g/dL (11.2-15.7); Immature Grans % 1.2; Lymphocytes % 10.1; MCH 31.5 pg (27.0-33.0); MCHC 32.9 % (32.0-36.0); MCV 95.7 fL (80-95); MPV 10.4 fL (8.0-11.0); Monocytes % 6.3; Neutrophils % 81.3; Nucleated RBC 0 %; Platelet Count 170 10^3/uL (130-400); RBC 4.47 10^6/uL (3.93-5.22); RDW 15.9 % (11.7-14.6); RDW-SD 55.5 fL; WBC 8.55 10^3/uL (4.4-10.8)
[2020-04-04] MEDS: Normal Saline Flush 10 ML SYR IVP (08:59)
[2020-04-04 09:17] LABS: ALT 35 U/L (14-59); AST 24 U/L (15-37); Albumin 3.4 g/dL (3.4-5.0); Alkaline Phosphatase 148 U/L (46-116); Anion Gap 8.3 mmol/L (3-11); BUN 9 mg/dL (7-18); Bilirubin, Total 0.6 mg/dL (0.2-1.0); CO2 26.7 mmol/L (21.0-32.0); CREATININE 0.9 mg/dL (0.55-1.02); Calcium 9.1 mg/dL (8.5-10.1); Chloride 107 mmol/L (98-107); Glucose 105 mg/dL (74-106); Potassium 4.3 mmol/L (3.5-5.1); Sodium 142 mmol/L (136-145); Total Protein 7.3 g/dL (6.4-8.2)
[2020-04-04 18:54] LABS: CEA 36.5 ng/mL (See Note)
[2020-04-18] MEDS: Normal Saline Flush 10 ML SYR IVP (08:33)
[2020-04-18 08:43] LABS: Absolute Basophil Count 0.05 10^3/uL (0.0-0.2); Absolute Eosinophil Count 0.02 10^3/uL (0.0-0.7); Absolute Lymphocyte Count 0.77 10^3/uL (1.2-3.4); Absolute Monocyte Count 0.69 10^3/uL (0.1-0.8); Absolute Neutrophil Count 5.53 10^3/uL (1.2-6.7); Basophils % 0.7; Eosinophils % 0.3; HCT 38.6 % (36.0-46.0); HGB 12.7 g/dL (11.2-15.7); Immature Grans % 1.4; Lymphocytes % 10.8; MCH 31.4 pg (27.0-33.0); MCHC 32.9 % (32.0-36.0); MCV 95.5 fL (80-95); MPV 9.5 fL (8.0-11.0); Monocytes % 9.6; Neutrophils % 77.2; Nucleated RBC 0 %; Platelet Count 112 10^3/uL (130-400); RBC 4.04 10^6/uL (3.93-5.22); RDW-SD 55.1 fL; WBC 7.16 10^3/uL (4.4-10.8)
[2020-04-18 08:59] LABS: ALT 44 U/L (14-59); AST 27 U/L (15-37); Albumin 3.3 g/dL (3.4-5.0); Alkaline Phosphatase 146 U/L (46-116); Anion Gap 9.4 mmol/L (3-11); BUN 11 mg/dL (7-18); Bilirubin, Total 0.7 mg/dL (0.2-1.0); CO2 27.6 mmol/L (21.0-32.0); CREATININE 0.9 mg/dL (0.55-1.02); Calcium 8.8 mg/dL (8.5-10.1); Chloride 107 mmol/L (98-107); Glucose 102 mg/dL (74-106); Potassium 3.6 mmol/L (3.5-5.1); Sodium 144 mmol/L (136-145); Total Protein 6.8 g/dL (6.4-8.2)
[2020-04-18 17:40] LABS: CEA 31.2 ng/mL (See Note)
== END 2020-04-20 23:59 | disposition home or self-care (01) ==
LOC: INF 04:42
PROVIDERS: PCP Hospitalist; Visit Provider Nurse Practitioner Adult Health
DX: C20 Malignant neoplasm of rectum (principal); C79.89 Secondary malignant neoplasm of other specified sites; Z45.2 Encounter for adjustment and management of vascular access device
CPT/HCPCS: 36591; 80053; 82378; 85025

== ENCOUNTER 2020-05-09 05:33 | Outpatient (RCR) | payer BC, SELFPAY ==
[2020-05-09] MEDS: Normal Saline Flush 10 ML SYR IVP (10:04)
[2020-05-09 10:15] LABS: Abs Immature Grans 0.03 10^3/uL (0.0-0.06); Absolute Basophil Count 0.03 10^3/uL (0.0-0.2); Absolute Eosinophil Count 0.02 10^3/uL (0.0-0.7); Absolute Monocyte Count 0.81 10^3/uL (0.1-0.8); Absolute Neutrophil Count 6.45 10^3/uL (1.2-6.7); Basophils % 0.4; Eosinophils % 0.2; HCT 40.8 % (36.0-46.0); HGB 13.3 g/dL (11.2-15.7); Immature Grans % 0.4; Lymphocytes % 9.8; MCH 32.4 pg (27.0-33.0); MCHC 32.6 % (32.0-36.0); MCV 99.3 fL (80-95); MPV 10.1 fL (8.0-11.0); Neutrophils % 79.2; Nucleated RBC 0 %; Platelet Count 155 10^3/uL (130-400); RBC 4.11 10^6/uL (3.93-5.22); RDW 16.6 % (11.7-14.6); RDW-SD 60.2 fL; WBC 8.14 10^3/uL (4.4-10.8)
[2020-05-09 10:39] LABS: ALT 59 U/L (14-59); AST 37 U/L (15-37); Albumin 3.6 g/dL (3.4-5.0); Alkaline Phosphatase 142 U/L (46-116); Anion Gap 10.2 mmol/L (3-11); BUN 15 mg/dL (7-18); CO2 26.8 mmol/L (21.0-32.0); CREATININE 0.8 mg/dL (0.55-1.02); Calcium 9.2 mg/dL (8.5-10.1); Chloride 103 mmol/L (98-107); Glucose 94 mg/dL (74-106); Potassium 4.2 mmol/L (3.5-5.1); Sodium 140 mmol/L (136-145); Total Protein 7.3 g/dL (6.4-8.2)
[2020-05-09 17:28] LABS: CEA 35.8 ng/mL (See Note)
== END 2020-05-21 23:59 | disposition home or self-care (01) ==
LOC: INF 05:33
PROVIDERS: PCP Hospitalist; Visit Provider Nurse Practitioner Adult Health
DX: C20 Malignant neoplasm of rectum (principal); C79.89 Secondary malignant neoplasm of other specified sites; Z45.2 Encounter for adjustment and management of vascular access device
CPT/HCPCS: 36591; 80053; 82378; 85025

== ENCOUNTER 2020-06-20 04:19 | Outpatient (RCR) | payer BC, SELFPAY ==
[2020-05-23] MEDS: Normal Saline Flush 10 ML SYR IVP (09:01)
[2020-05-23 09:07] LABS: Abs Immature Grans 0.04 10^3/uL (0.0-0.06); Absolute Basophil Count 0.02 10^3/uL (0.0-0.2); Absolute Eosinophil Count 0.03 10^3/uL (0.0-0.7); Absolute Lymphocyte Count 0.65 10^3/uL (1.2-3.4); Absolute Monocyte Count 0.47 10^3/uL (0.1-0.8); Absolute Neutrophil Count 4.92 10^3/uL (1.2-6.7); Basophils % 0.3; Eosinophils % 0.5; HCT 38.6 % (36.0-46.0); HGB 12.7 g/dL (11.2-15.7); Immature Grans % 0.7; Lymphocytes % 10.6; MCH 32.5 pg (27.0-33.0); MCHC 32.9 % (32.0-36.0); MCV 98.7 fL (80-95); MPV 10.7 fL (8.0-11.0); Monocytes % 7.7; Neutrophils % 80.2; Nucleated RBC 0 %; Platelet Count 104 10^3/uL (130-400); RBC 3.91 10^6/uL (3.93-5.22); RDW 15.8 % (11.7-14.6); WBC 6.13 10^3/uL (4.4-10.8)
[2020-05-23 09:19] LABS: Calcium 8.8 mg/dL (8.5-10.1); Glucose 100 mg/dL (74-106)
[2020-05-23 09:20] LABS: ALT 39 U/L (14-59); AST 25 U/L (15-37); Albumin 3.3 g/dL (3.4-5.0); Alkaline Phosphatase 147 U/L (46-116); Anion Gap 8.6 mmol/L (3-11); BUN 7 mg/dL (7-18); Bilirubin, Total 0.6 mg/dL (0.2-1.0); CO2 27.4 mmol/L (21.0-32.0); CREATININE 0.8 mg/dL (0.55-1.02); Chloride 108 mmol/L (98-107); Potassium 3.5 mmol/L (3.5-5.1); Sodium 144 mmol/L (136-145); Total Protein 6.7 g/dL (6.4-8.2)
[2020-05-23 17:36] LABS: CEA 31.7 ng/mL (See Note)
[2020-06-06] MEDS: Normal Saline Flush 10 ML SYR IVP (09:07)
[2020-06-06 09:16] LABS: Abs Immature Grans 0.05 10^3/uL (0.0-0.06); Absolute Basophil Count 0.04 10^3/uL (0.0-0.2); Absolute Eosinophil Count 0.03 10^3/uL (0.0-0.7); Absolute Lymphocyte Count 0.74 10^3/uL (1.2-3.4); Absolute Monocyte Count 0.67 10^3/uL (0.1-0.8); Absolute Neutrophil Count 5.57 10^3/uL (1.2-6.7); Basophils % 0.6; Eosinophils % 0.4; HCT 37.8 % (36.0-46.0); HGB 12.5 g/dL (11.2-15.7); Immature Grans % 0.7; Lymphocytes % 10.4; MCH 32.2 pg (27.0-33.0); MCHC 33.1 % (32.0-36.0); MCV 97.4 fL (80-95); MPV 10.3 fL (8.0-11.0); Monocytes % 9.4; Neutrophils % 78.5; Nucleated RBC 0 %; RBC 3.88 10^6/uL (3.93-5.22); RDW 15.5 % (11.7-14.6); RDW-SD 54.5 fL
[2020-06-06 09:30] LABS: ALT 57 U/L (14-59); AST 37 U/L (15-37); Albumin 3.6 g/dL (3.4-5.0); Alkaline Phosphatase 151 U/L (46-116); Anion Gap 9.3 mmol/L (3-11); BUN 8 mg/dL (7-18); Bilirubin, Total 0.7 mg/dL (0.2-1.0); CO2 26.7 mmol/L (21.0-32.0); CREATININE 0.8 mg/dL (0.55-1.02); Calcium 8.9 mg/dL (8.5-10.1); Chloride 107 mmol/L (98-107); Glucose 103 mg/dL (74-106); Potassium 3.3 mmol/L (3.5-5.1); Sodium 143 mmol/L (136-145); Total Protein 6.9 g/dL (6.4-8.2)
[2020-06-06 09:43] LABS: Diff Comment Diff Reviewed; Platelet Count 75 10^3/uL (130-400); RBC Morphology Normal
[2020-06-06 17:39] LABS: CEA 33.6 ng/mL (See Note)
[2020-06-20] MEDS: Normal Saline Flush 10 ML SYR IVP (08:38)
[2020-06-20 08:43] LABS: Abs Immature Grans 0.09 10^3/uL (0.0-0.06); Absolute Basophil Count 0.04 10^3/uL (0.0-0.2); Absolute Eosinophil Count 0.02 10^3/uL (0.0-0.7); Absolute Lymphocyte Count 0.75 10^3/uL (1.2-3.4); Absolute Monocyte Count 0.97 10^3/uL (0.1-0.8); Basophils % 0.4; Eosinophils % 0.2; HCT 44.2 % (36.0-46.0); HGB 14.1 g/dL (11.2-15.7); Immature Grans % 0.8; Lymphocytes % 6.8; MCHC 31.9 % (32.0-36.0); MCV 100.2 fL (80-95); MPV 10.4 fL (8.0-11.0); Monocytes % 8.8; Nucleated RBC 0 %; Platelet Count 100 10^3/uL (130-400); RBC 4.41 10^6/uL (3.93-5.22); RDW 15.9 % (11.7-14.6); RDW-SD 58.9 fL; WBC 11.06 10^3/uL (4.4-10.8)
[2020-06-20 08:44] LABS: Absolute Neutrophil Count 9.18 10^3/uL (1.2-6.7)
[2020-06-20 09:01] LABS: ALT 88 U/L (14-59); AST 51 U/L (15-37); Albumin 3.7 g/dL (3.4-5.0); Alkaline Phosphatase 210 U/L (46-116); Anion Gap 9.5 mmol/L (3-11); BUN 9 mg/dL (7-18); Bilirubin, Total 0.8 mg/dL (0.2-1.0); CO2 27.5 mmol/L (21.0-32.0); CREATININE 0.8 mg/dL (0.55-1.02); Calcium 9.1 mg/dL (8.5-10.1); Chloride 105 mmol/L (98-107); Glucose 97 mg/dL (74-106); Potassium 4.2 mmol/L (3.5-5.1); Sodium 142 mmol/L (136-145); Total Protein 7.3 g/dL (6.4-8.2)
== END 2020-06-20 23:59 | disposition home or self-care (01) ==
LOC: INF 04:19
PROVIDERS: PCP Hospitalist; Visit Provider Nurse Practitioner Adult Health
DX: C20 Malignant neoplasm of rectum (principal); C79.89 Secondary malignant neoplasm of other specified sites; Z45.2 Encounter for adjustment and management of vascular access device
CPT/HCPCS: 36591; 80053; 82378; 85025

== ENCOUNTER 2020-07-18 03:59 | Outpatient (RCR) | payer BC, SELFPAY ==
[2020-07-04] MEDS: Normal Saline Flush 10 ML SYR IVP (09:29)
[2020-07-04 09:35] LABS: Abs Immature Grans 0.05 10^3/uL (0.0-0.06); Absolute Basophil Count 0.04 10^3/uL (0.0-0.2); Absolute Eosinophil Count 0.05 10^3/uL (0.0-0.7); Absolute Lymphocyte Count 0.72 10^3/uL (1.2-3.4); Absolute Monocyte Count 0.78 10^3/uL (0.1-0.8); Absolute Neutrophil Count 6.37 10^3/uL (1.2-6.7); Basophils % 0.5; Eosinophils % 0.6; Immature Grans % 0.6; MCH 32.5 pg (27.0-33.0); MCHC 32.5 % (32.0-36.0); MPV 11.1 fL (8.0-11.0); Monocytes % 9.7; Neutrophils % 79.6; Nucleated RBC 0 %; RDW 15.3 % (11.7-14.6); RDW-SD 56.3 fL; WBC 8.01 10^3/uL (4.4-10.8)
[2020-07-04 09:46] LABS: ALT 68 U/L (14-59); AST 45 U/L (15-37); Albumin 3.5 g/dL (3.4-5.0); Alkaline Phosphatase 200 U/L (46-116); Anion Gap 8.9 mmol/L (3-11); BUN 9 mg/dL (7-18); Bilirubin, Total 0.7 mg/dL (0.2-1.0); CO2 27.1 mmol/L (21.0-32.0); CREATININE 0.7 mg/dL (0.55-1.02); Chloride 105 mmol/L (98-107); Glucose 95 mg/dL (74-106); Sodium 141 mmol/L (136-145); Total Protein 7.1 g/dL (6.4-8.2)
[2020-07-04 10:00] LABS: Platelet Count 95 10^3/uL (130-400)
[2020-07-04 10:02] LABS: Diff Comment Diff Reviewed; RBC Morphology Normal
[2020-07-04 17:02] LABS: CEA 37.2 ng/mL (See Note)
[2020-07-18] MEDS: Normal Saline Flush 10 ML SYR IVP (07:11)
[2020-07-18 07:30] LABS: Abs Immature Grans 0.03 10^3/uL (0.0-0.06); Absolute Basophil Count 0.02 10^3/uL (0.0-0.2); Absolute Eosinophil Count 0.02 10^3/uL (0.0-0.7); Absolute Lymphocyte Count 0.56 10^3/uL (1.2-3.4); Absolute Monocyte Count 0.62 10^3/uL (0.1-0.8); Absolute Neutrophil Count 4.06 10^3/uL (1.2-6.7); Basophils % 0.4; Eosinophils % 0.4; HCT 39.7 % (36.0-46.0); HGB 12.9 g/dL (11.2-15.7); Immature Grans % 0.6; Lymphocytes % 10.5; MCH 32.3 pg (27.0-33.0); MCHC 32.5 % (32.0-36.0); MCV 99.5 fL (80-95); MPV 10.8 fL (8.0-11.0); Monocytes % 11.7; Neutrophils % 76.4; Nucleated RBC 0 %; RBC 3.99 10^6/uL (3.93-5.22); RDW-SD 54.2 fL; WBC 5.31 10^3/uL (4.4-10.8)
[2020-07-18 07:41] LABS: ALT 53 U/L (14-59); AST 32 U/L (15-37); Albumin 3.3 g/dL (3.4-5.0); Alkaline Phosphatase 180 U/L (46-116); Anion Gap 9.3 mmol/L (3-11); BUN 11 mg/dL (7-18); Bilirubin, Total 0.6 mg/dL (0.2-1.0); CO2 26.7 mmol/L (21.0-32.0); CREATININE 0.7 mg/dL (0.55-1.02); Calcium 8.8 mg/dL (8.5-10.1); Chloride 107 mmol/L (98-107); Glucose 104 mg/dL (74-106); Potassium 4.1 mmol/L (3.5-5.1); Sodium 143 mmol/L (136-145); Total Protein 6.9 g/dL (6.4-8.2)
[2020-07-18 07:47] LABS: Diff Comment Diff Reviewed; Platelet Count 81 10^3/uL (130-400); RBC Morphology Normal
[2020-07-18 17:51] LABS: CEA <2.0 ng/mL (See Note)
== END 2020-07-21 23:59 | disposition home or self-care (01) ==
LOC: INF 03:59
PROVIDERS: PCP Hospitalist; Visit Provider Nurse Practitioner Adult Health
DX: C20 Malignant neoplasm of rectum (principal); C79.89 Secondary malignant neoplasm of other specified sites; Z45.2 Encounter for adjustment and management of vascular access device
CPT/HCPCS: 36591; 80053; 82378; 85025

== ENCOUNTER 2020-08-15 04:41 | Outpatient (RCR) | payer BC, SELFPAY ==
[2020-08-01] MEDS: Normal Saline Flush 10 ML SYR IVP (08:26)
[2020-08-01 08:49] LABS: Abs Immature Grans 0.06 10^3/uL (0.0-0.06); Absolute Basophil Count 0.02 10^3/uL (0.0-0.2); Absolute Eosinophil Count 0.02 10^3/uL (0.0-0.7); Absolute Lymphocyte Count 0.48 10^3/uL (1.2-3.4); Absolute Monocyte Count 0.64 10^3/uL (0.1-0.8); Absolute Neutrophil Count 4.91 10^3/uL (1.2-6.7); Basophils % 0.3; Eosinophils % 0.3; HCT 38.3 % (36.0-46.0); HGB 12.4 g/dL (11.2-15.7); Lymphocytes % 7.8; MCH 32.4 pg (27.0-33.0); MCHC 32.4 % (32.0-36.0); MPV 10.6 fL (8.0-11.0); Monocytes % 10.4; Neutrophils % 80.2; Nucleated RBC 0 %; Platelet Count 77 10^3/uL (130-400); RBC 3.83 10^6/uL (3.93-5.22); RDW 15.1 % (11.7-14.6); RDW-SD 55.2 fL; WBC 6.13 10^3/uL (4.4-10.8)
[2020-08-01 09:20] LABS: ALT 42 U/L (14-59); AST 32 U/L (15-37); Albumin 3.2 g/dL (3.4-5.0); Alkaline Phosphatase 180 U/L (46-116); Anion Gap 6.9 mmol/L (3-11); BUN 9 mg/dL (7-18); Bilirubin, Total 0.7 mg/dL (0.2-1.0); CO2 29.1 mmol/L (21.0-32.0); CREATININE 0.7 mg/dL (0.55-1.02); Calcium 8.9 mg/dL (8.5-10.1); Chloride 107 mmol/L (98-107); Glucose 92 mg/dL (74-106); Potassium 3.6 mmol/L (3.5-5.1); Sodium 143 mmol/L (136-145); Total Protein 6.7 g/dL (6.4-8.2)
[2020-08-01 17:15] LABS: CEA 39.4 ng/mL (See Note)
[2020-08-15] MEDS: Normal Saline Flush 10 ML SYR IVP (07:30)
[2020-08-15 08:00] LABS: Abs Immature Grans 0.03 10^3/uL (0.0-0.06); Absolute Basophil Count 0.02 10^3/uL (0.0-0.2); Absolute Eosinophil Count 0.02 10^3/uL (0.0-0.7); Absolute Lymphocyte Count 0.43 10^3/uL (1.2-3.4); Absolute Monocyte Count 0.52 10^3/uL (0.1-0.8); Absolute Neutrophil Count 3.64 10^3/uL (1.2-6.7); Basophils % 0.4; Eosinophils % 0.4; HCT 38.3 % (36.0-46.0); HGB 12.3 g/dL (11.2-15.7); Immature Grans % 0.6; Lymphocytes % 9.2; MCH 31.9 pg (27.0-33.0); MCHC 32.1 % (32.0-36.0); MCV 99.5 fL (80-95); MPV 10.9 fL (8.0-11.0); Monocytes % 11.2; Neutrophils % 78.2; Nucleated RBC 0 %; RBC 3.85 10^6/uL (3.93-5.22); RDW 14.8 % (11.7-14.6); RDW-SD 53.9 fL; WBC 4.66 10^3/uL (4.4-10.8)
[2020-08-15 08:06] LABS: ALT 46 U/L (14-59); AST 34 U/L (15-37); Albumin 3.2 g/dL (3.4-5.0); Alkaline Phosphatase 174 U/L (46-116); Anion Gap 7.2 mmol/L (3-11); BUN 9 mg/dL (7-18); Bilirubin, Total 0.6 mg/dL (0.2-1.0); CO2 28.8 mmol/L (21.0-32.0); CREATININE 0.7 mg/dL (0.55-1.02); Chloride 107 mmol/L (98-107); Glucose 100 mg/dL (74-106); Potassium 3.7 mmol/L (3.5-5.1); Sodium 143 mmol/L (136-145); Total Protein 6.6 g/dL (6.4-8.2)
[2020-08-15 08:37] LABS: Platelet Count 70 10^3/uL (130-400)
[2020-08-15 17:51] LABS: CEA 41.7 ng/mL (See Note)
== END 2020-08-20 23:59 | disposition home or self-care (01) ==
LOC: INF 04:41
PROVIDERS: PCP Hospitalist; Visit Provider Nurse Practitioner Adult Health
DX: C20 Malignant neoplasm of rectum (principal); C79.89 Secondary malignant neoplasm of other specified sites
CPT/HCPCS: 36591; 80053; 82378; 85025

== ENCOUNTER 2020-09-12 05:09 | Outpatient (RCR) | payer BC, SELFPAY ==
[2020-08-29] MEDS: Normal Saline Flush 10 ML SYR IVP (09:06)
[2020-08-29 09:15] LABS: Abs Immature Grans 0.01 10^3/uL (0.0-0.06); Absolute Basophil Count 0.02 10^3/uL (0.0-0.2); Absolute Eosinophil Count 0.01 10^3/uL (0.0-0.7); Absolute Lymphocyte Count 0.52 10^3/uL (1.2-3.4); Absolute Monocyte Count 0.52 10^3/uL (0.1-0.8); Absolute Neutrophil Count 4.37 10^3/uL (1.2-6.7); Basophils % 0.4; Eosinophils % 0.2; HCT 39.9 % (36.0-46.0); HGB 12.9 g/dL (11.2-15.7); Immature Grans % 0.2; Lymphocytes % 9.5; MCH 32.4 pg (27.0-33.0); MCHC 32.3 % (32.0-36.0); MCV 100.3 fL (80-95); MPV 10.4 fL (8.0-11.0); Monocytes % 9.5; Neutrophils % 80.2; Nucleated RBC 0 %; RBC 3.98 10^6/uL (3.93-5.22); RDW 14.1 % (11.7-14.6); WBC 5.45 10^3/uL (4.4-10.8)
[2020-08-29 09:37] LABS: ALT 39 U/L (14-59); AST 33 U/L (15-37); Albumin 3.4 g/dL (3.4-5.0); Alkaline Phosphatase 141 U/L (46-116); BUN 11 mg/dL (7-18); Bilirubin, Total 0.9 mg/dL (0.2-1.0); CREATININE 0.8 mg/dL (0.55-1.02); Calcium 9.1 mg/dL (8.5-10.1); Chloride 102 mmol/L (98-107); Glucose 97 mg/dL (74-106); Potassium 4.1 mmol/L (3.5-5.1); Sodium 142 mmol/L (136-145); Total Protein 7.2 g/dL (6.4-8.2)
[2020-08-29 09:50] LABS: Diff Comment Diff Reviewed; Macrocytosis 2+; Platelet Count 81 10^3/uL (130-400)
[2020-08-29 18:02] LABS: CEA 42.3 ng/mL (See Note)
[2020-09-12] MEDS: Normal Saline Flush 10 ML SYR IVP (09:00)
[2020-09-12 09:24] LABS: Abs Immature Grans 0.05 10^3/uL (0.0-0.06); Absolute Basophil Count 0.02 10^3/uL (0.0-0.2); Absolute Eosinophil Count 0.04 10^3/uL (0.0-0.7); Absolute Lymphocyte Count 0.61 10^3/uL (1.2-3.4); Absolute Monocyte Count 0.46 10^3/uL (0.1-0.8); Absolute Neutrophil Count 6.61 10^3/uL (1.2-6.7); Basophils % 0.3; Eosinophils % 0.5; HCT 39.3 % (36.0-46.0); HGB 12.7 g/dL (11.2-15.7); Immature Grans % 0.6; Lymphocytes % 7.8; MCH 32.2 pg (27.0-33.0); MCHC 32.3 % (32.0-36.0); MCV 99.7 fL (80-95); MPV 9.9 fL (8.0-11.0); Monocytes % 5.9; Neutrophils % 84.9; Nucleated RBC 0 %; RBC 3.94 10^6/uL (3.93-5.22); RDW-SD 51.4 fL; WBC 7.79 10^3/uL (4.4-10.8)
[2020-09-12 09:43] LABS: ALT 40 U/L (14-59); AST 28 U/L (15-37); Albumin 3.4 g/dL (3.4-5.0); Alkaline Phosphatase 164 U/L (46-116); Anion Gap 6.2 mmol/L (3-11); BUN 12 mg/dL (7-18); Bilirubin, Total 0.6 mg/dL (0.2-1.0); CO2 28.8 mmol/L (21.0-32.0); CREATININE 0.6 mg/dL (0.55-1.02); Chloride 106 mmol/L (98-107); Glucose 90 mg/dL (74-106); Potassium 4.1 mmol/L (3.5-5.1); Sodium 141 mmol/L (136-145)
[2020-09-12 09:49] LABS: Platelet Count 70 10^3/uL (130-400)
== END 2020-09-20 23:59 | disposition home or self-care (01) ==
LOC: INF 05:09
PROVIDERS: PCP Hospitalist; Visit Provider Nurse Practitioner Adult Health
DX: C20 Malignant neoplasm of rectum (principal); C79.89 Secondary malignant neoplasm of other specified sites; Z45.2 Encounter for adjustment and management of vascular access device
CPT/HCPCS: 36591; 80053; 82378; 85025

== ENCOUNTER 2020-10-17 03:50 | Outpatient (RCR) | payer BC, SELFPAY ==
[2020-09-26] MEDS: Normal Saline Flush 10 ML SYR IVP (07:42)
[2020-09-26 07:46] LABS: Abs Immature Grans 0.02 10^3/uL (0.0-0.06); Absolute Basophil Count 0.02 10^3/uL (0.0-0.2); Absolute Eosinophil Count 0.03 10^3/uL (0.0-0.7); Absolute Lymphocyte Count 0.41 10^3/uL (1.2-3.4); Absolute Monocyte Count 0.54 10^3/uL (0.1-0.8); Absolute Neutrophil Count 4.43 10^3/uL (1.2-6.7); Basophils % 0.4; Eosinophils % 0.6; HCT 37.6 % (36.0-46.0); Immature Grans % 0.4; Lymphocytes % 7.5; MCH 31.7 pg (27.0-33.0); MCHC 31.9 % (32.0-36.0); MCV 99.2 fL (80-95); MPV 10.4 fL (8.0-11.0); Monocytes % 9.9; Neutrophils % 81.2; Nucleated RBC 0 %; Platelet Count 97 10^3/uL (130-400); RBC 3.79 10^6/uL (3.93-5.22); RDW 13.6 % (11.7-14.6); RDW-SD 49.6 fL; WBC 5.45 10^3/uL (4.4-10.8)
[2020-09-26 07:57] LABS: ALT 39 U/L (14-59); AST 30 U/L (15-37); Albumin 3.2 g/dL (3.4-5.0); Alkaline Phosphatase 150 U/L (46-116); Anion Gap 5.7 mmol/L (3-11); BUN 11 mg/dL (7-18); Bilirubin, Total 0.5 mg/dL (0.2-1.0); CO2 29.3 mmol/L (21.0-32.0); CREATININE 0.6 mg/dL (0.55-1.02); Chloride 107 mmol/L (98-107); Glucose 90 mg/dL (74-106); Potassium 4.1 mmol/L (3.5-5.1); Sodium 142 mmol/L (136-145); Total Protein 6.9 g/dL (6.4-8.2)
[2020-09-26 08:10] LABS: Diff Comment Diff Reviewed; RBC Morphology Normal
[2020-09-26 18:23] LABS: CEA 54.4 ng/mL (See Note)
[2020-10-17] MEDS: Normal Saline Flush 10 ML SYR IVP (08:01)
[2020-10-17 08:17] LABS: Abs Immature Grans 0.02 10^3/uL (0.0-0.06); Absolute Basophil Count 0.02 10^3/uL (0.0-0.2); Absolute Eosinophil Count 0.03 10^3/uL (0.0-0.7); Absolute Lymphocyte Count 0.48 10^3/uL (1.2-3.4); Absolute Monocyte Count 0.62 10^3/uL (0.1-0.8); Absolute Neutrophil Count 6.34 10^3/uL (1.2-6.7); Basophils % 0.3; Eosinophils % 0.4; HCT 37.7 % (36.0-46.0); HGB 12.1 g/dL (11.2-15.7); Immature Grans % 0.3; Lymphocytes % 6.4; MCH 31.6 pg (27.0-33.0); MCHC 32.1 % (32.0-36.0); MCV 98.4 fL (80-95); MPV 10.4 fL (8.0-11.0); Monocytes % 8.3; Neutrophils % 84.3; Nucleated RBC 0 %; Platelet Count 102 10^3/uL (130-400); RBC 3.83 10^6/uL (3.93-5.22); RDW 13.9 % (11.7-14.6); RDW-SD 50.3 fL; WBC 7.51 10^3/uL (4.4-10.8)
[2020-10-17 08:22] LABS: ALT 40 U/L (14-59); AST 31 U/L (15-37); Albumin 3.4 g/dL (3.4-5.0); Alkaline Phosphatase 144 U/L (46-116); Anion Gap 8.2 mmol/L (3-11); BUN 11 mg/dL (7-18); Bilirubin, Total 0.6 mg/dL (0.2-1.0); CO2 28.8 mmol/L (21.0-32.0); CREATININE 0.8 mg/dL (0.55-1.02); Calcium 9.3 mg/dL (8.5-10.1); Chloride 106 mmol/L (98-107); Glucose 87 mg/dL (74-106); Potassium 3.9 mmol/L (3.5-5.1); Sodium 143 mmol/L (136-145); Total Protein 6.9 g/dL (6.4-8.2)
[2020-10-17 17:58] LABS: CEA 47.1 ng/mL (See Note)
== END 2020-10-21 23:59 | disposition home or self-care (01) ==
LOC: INF 03:50
PROVIDERS: PCP Hospitalist; Visit Provider Nurse Practitioner Adult Health
DX: C20 Malignant neoplasm of rectum (principal); C79.89 Secondary malignant neoplasm of other specified sites; R97.0 Elevated carcinoembryonic antigen [CEA]; Z45.2 Encounter for adjustment and management of vascular access device
CPT/HCPCS: 36591; 80053; 82378; 85025

== ENCOUNTER 2020-11-07 04:39 | Outpatient (RCR) | payer BC, SELFPAY ==
[2020-11-07] MEDS: Normal Saline Flush 10 ML SYR IVP (08:33)
[2020-11-07 08:41] LABS: Abs Immature Grans 0.01 10^3/uL (0.0-0.06); Absolute Basophil Count 0.03 10^3/uL (0.0-0.2); Absolute Eosinophil Count 0.03 10^3/uL (0.0-0.7); Absolute Lymphocyte Count 0.48 10^3/uL (1.2-3.4); Absolute Monocyte Count 0.58 10^3/uL (0.1-0.8); Absolute Neutrophil Count 5.84 10^3/uL (1.2-6.7); Basophils % 0.4; Eosinophils % 0.4; HCT 40.9 % (36.0-46.0); Immature Grans % 0.1; Lymphocytes % 6.9; MCH 31.3 pg (27.0-33.0); MCHC 31.8 % (32.0-36.0); MCV 98.3 fL (80-95); MPV 10.6 fL (8.0-11.0); Monocytes % 8.3; Neutrophils % 83.9; Nucleated RBC 0 %; Platelet Count 109 10^3/uL (130-400); RBC 4.16 10^6/uL (3.93-5.22); RDW 14.7 % (11.7-14.6); RDW-SD 53.5 fL; WBC 6.97 10^3/uL (4.4-10.8)
[2020-11-07 09:03] LABS: ALT 35 U/L (14-59); AST 19 U/L (15-37); Albumin 3.4 g/dL (3.4-5.0); Alkaline Phosphatase 175 U/L (46-116); Anion Gap 6.9 mmol/L (3-11); BUN 9 mg/dL (7-18); Bilirubin, Total 0.8 mg/dL (0.2-1.0); CO2 29.1 mmol/L (21.0-32.0); CREATININE 0.7 mg/dL (0.55-1.02); Calcium 8.8 mg/dL (8.5-10.1); Chloride 106 mmol/L (98-107); Glucose 143 mg/dL (74-106); Sodium 142 mmol/L (136-145); Total Protein 7.2 g/dL (6.4-8.2)
[2020-11-07 17:55] LABS: CEA 55.4 ng/mL (See Note)
== END 2020-11-20 23:59 | disposition home or self-care (01) ==
LOC: INF 04:39
PROVIDERS: Nurse Practitioner Family; PCP Hospitalist; Visit Provider Nurse Practitioner Adult Health
DX: C20 Malignant neoplasm of rectum (principal); C79.89 Secondary malignant neoplasm of other specified sites; R97.0 Elevated carcinoembryonic antigen [CEA]; Z45.2 Encounter for adjustment and management of vascular access device
CPT/HCPCS: 36591; 80053; 82378; 85025

== ENCOUNTER 2020-12-05 00:49 | Outpatient (RCR) | payer BC, SELFPAY ==
[2020-11-28] MEDS: Normal Saline Flush 10 ML SYR IVP (08:33)
[2020-11-28 08:40] LABS: Abs Immature Grans 0.01 10^3/uL (0.0-0.06); Absolute Basophil Count 0.01 10^3/uL (0.0-0.2); Absolute Eosinophil Count 0.06 10^3/uL (0.0-0.7); Absolute Lymphocyte Count 0.41 10^3/uL (1.2-3.4); Absolute Monocyte Count 0.43 10^3/uL (0.1-0.8); Absolute Neutrophil Count 2.16 10^3/uL (1.2-6.7); Basophils % 0.3; Eosinophils % 1.9; HCT 39.2 % (36.0-46.0); HGB 12.7 g/dL (11.2-15.7); Immature Grans % 0.3; Lymphocytes % 13.3; MCH 31.4 pg (27.0-33.0); MCHC 32.4 % (32.0-36.0); MCV 96.8 fL (80-95); MPV 10.9 fL (8.0-11.0); Neutrophils % 70.2; Nucleated RBC 0 %; RBC 4.05 10^6/uL (3.93-5.22); RDW 14.4 % (11.7-14.6); RDW-SD 51.4 fL; WBC 3.08 10^3/uL (4.4-10.8)
[2020-11-28 08:56] LABS: ALT 45 U/L (14-59); AST 33 U/L (15-37); Albumin 3.4 g/dL (3.4-5.0); Alkaline Phosphatase 150 U/L (46-116); Anion Gap 4.6 mmol/L (3-11); BUN 13 mg/dL (7-18); Bilirubin, Total 0.7 mg/dL (0.2-1.0); CO2 30.4 mmol/L (21.0-32.0); CREATININE 0.7 mg/dL (0.55-1.02); Calcium 9.2 mg/dL (8.5-10.1); Chloride 106 mmol/L (98-107); Glucose 107 mg/dL (74-106); Potassium 4.2 mmol/L (3.5-5.1); Sodium 141 mmol/L (136-145); Total Protein 7.3 g/dL (6.4-8.2)
[2020-11-28 09:13] LABS: Platelet Count 67 10^3/uL (130-400)
[2020-11-28 17:37] LABS: CEA 64.6 ng/mL (See Note)
[2020-12-05] MEDS: Normal Saline Flush 10 ML SYR IVP (10:00)
[2020-12-05 10:11] LABS: Abs Immature Grans 0.02 10^3/uL (0.0-0.06); Absolute Basophil Count 0.02 10^3/uL (0.0-0.2); Absolute Eosinophil Count 0.03 10^3/uL (0.0-0.7); Absolute Lymphocyte Count 0.43 10^3/uL (1.2-3.4); Absolute Monocyte Count 0.39 10^3/uL (0.1-0.8); Absolute Neutrophil Count 2.77 10^3/uL (1.2-6.7); Basophils % 0.5; Eosinophils % 0.8; HCT 38.5 % (36.0-46.0); HGB 12.4 g/dL (11.2-15.7); Immature Grans % 0.5; Lymphocytes % 11.7; MCHC 32.2 % (32.0-36.0); MCV 96.3 fL (80-95); MPV 10.2 fL (8.0-11.0); Monocytes % 10.7; Neutrophils % 75.8; Nucleated RBC 0 %; Platelet Count 74 10^3/uL (130-400); RDW 14.2 % (11.7-14.6); RDW-SD 50.1 fL; WBC 3.66 10^3/uL (4.4-10.8)
[2020-12-05 10:22] LABS: ALT 41 U/L (14-59); AST 36 U/L (15-37); Albumin 3.5 g/dL (3.4-5.0); Alkaline Phosphatase 151 U/L (46-116); Anion Gap 8.3 mmol/L (3-11); BUN 17 mg/dL (7-18); CO2 27.7 mmol/L (21.0-32.0); CREATININE 0.7 mg/dL (0.55-1.02); Calcium 9.1 mg/dL (8.5-10.1); Chloride 104 mmol/L (98-107); Glucose 99 mg/dL (74-106); Potassium 4.1 mmol/L (3.5-5.1); Sodium 140 mmol/L (136-145); Total Protein 7.5 g/dL (6.4-8.2)
== END 2020-12-21 23:59 | disposition home or self-care (01) ==
LOC: INF 00:49
PROVIDERS: Nurse Practitioner Family; PCP Hospitalist; Visit Provider Nurse Practitioner Adult Health
DX: C20 Malignant neoplasm of rectum (principal); C79.89 Secondary malignant neoplasm of other specified sites; R97.0 Elevated carcinoembryonic antigen [CEA]; Z45.2 Encounter for adjustment and management of vascular access device
CPT/HCPCS: 36591; 80053; 82378; 85025

== ENCOUNTER 2021-01-02 01:31 | Outpatient (RCR) | payer BC, SELFPAY ==
[2021-01-02] MEDS: Normal Saline Flush 10 ML SYR IVP (07:39)
[2021-01-02 07:49] LABS: Abs Immature Grans 0.01 10^3/uL (0.0-0.06); Absolute Basophil Count 0.02 10^3/uL (0.0-0.2); Absolute Eosinophil Count 0.04 10^3/uL (0.0-0.7); Absolute Lymphocyte Count 0.43 10^3/uL (1.2-3.4); Absolute Monocyte Count 0.43 10^3/uL (0.1-0.8); Absolute Neutrophil Count 2.52 10^3/uL (1.2-6.7); Basophils % 0.6; Eosinophils % 1.2; HCT 39.5 % (36.0-46.0); HGB 12.9 g/dL (11.2-15.7); Immature Grans % 0.3; Lymphocytes % 12.5; MCH 30.9 pg (27.0-33.0); MCHC 32.7 % (32.0-36.0); MCV 94.7 fL (80-95); MPV 9.9 fL (8.0-11.0); Monocytes % 12.5; Neutrophils % 72.9; Nucleated RBC 0 %; Platelet Count 108 10^3/uL (130-400); RBC 4.17 10^6/uL (3.93-5.22); RDW 14.7 % (11.7-14.6); RDW-SD 51.1 fL; WBC 3.45 10^3/uL (4.4-10.8)
[2021-01-02 09:05] LABS: Calcium 9.1 mg/dL (8.5-10.1); Glucose 99 mg/dL (74-106)
[2021-01-02 09:06] LABS: ALT 41 U/L (14-59); AST 36 U/L (15-37); Albumin 3.5 g/dL (3.4-5.0); Alkaline Phosphatase 141 U/L (46-116); Anion Gap 8.9 mmol/L (3-11); BUN 14 mg/dL (7-18); Bilirubin, Total 0.7 mg/dL (0.2-1.0); CO2 28.1 mmol/L (21.0-32.0); CREATININE 0.8 mg/dL (0.55-1.02); Chloride 107 mmol/L (98-107); Potassium 4.4 mmol/L (3.5-5.1); Sodium 144 mmol/L (136-145); Total Protein 7.3 g/dL (6.4-8.2)
[2021-01-02 20:26] LABS: CEA 128.1 ng/mL (See Note)
== END 2021-01-20 23:59 | disposition home or self-care (01) ==
LOC: INF 01:31
PROVIDERS: PCP Hospitalist; Visit Provider Nurse Practitioner Adult Health
DX: C20 Malignant neoplasm of rectum (principal); C79.89 Secondary malignant neoplasm of other specified sites; R97.0 Elevated carcinoembryonic antigen [CEA]
CPT/HCPCS: 36591; 80053; 82378; 85025